=== PATIENT | female | born 1990 | race Caucasian/White ===

== ENCOUNTER 2017-09-01 20:52 | Emergency (ER) | payer MEDICAID, SELFPAY ==
[2017-09-01 20:54] VITALS: BP 126/79; PULSE 80; RESP 15; TEMP 36.4; O2SAT 99; BMI 38.7
--- NOTE | 2017-09-01 21:19 | ED.VISSUMM ---
- ER Visit Summary Date of Service: 09/01/17 Chief Complaint: Until pain for the past 5 day,s and facial swelling that started today History of Present Illness: The patient is a 26 F Z[place]z with dental pain for the past 5 days. She contacted her dentist because she has swelling right side of her face. He recommended she come to the emergency department. She denies fever, chills night sweats. She denies a traumatic fever, murmur, SBE, IV drug use to be immune suppressed. She denies difficulty opening and closing her mouth completely. She denies change in voice. Denies difficulty swallowing or breathing. She denies rash. She has no sniffing a past medical history. Physical Examination: Vital signs remarkable slight elevation blood pressure. She is afebrile. There is facial swelling over the right maxillary region. She has numerous dental caries involving right upper and lower molars. There is a significant cavity involving the right upper second bicuspid and right upper first molar. This is most likely the cause of her abscess. There is no evidence of facial cellulitis. There is no trismus. Trachea is midline with no stridor. Heart is regular without murmur, gallop or rub. S1 and S2 are normal. Lungs are clear to auscultation with good movement of air bilaterally. Please read written note for complete detail Test Results: None Emergency Department Course and Treatment: Patient received first dose of clindamycin 300 mg, Naprosyn 500 mg and one Taylor tablet. Treatment Plan: Prescription for clindamycin, Naprosyn and Taylor Disposition: Discharged to home Impression: 1. Periapical abscess 2. Dental pain secondary to numerous cavities This note was generated with [employer] dictation software. It may contain incorrect words, spelling, and punctuation that were not noted in review of the chart prior to signing ED Disposition - Plan for ED Patient: Disposition: Home or Assisted Living Chief Complaint: Dental Instructions: Dental Abscess Prescriptions: Hydrocodone Bitart/Apap 5-325 [Taylor 5MG-325MG] 1 tab PO Q6H PRN PRN 3 Days tab PRN Reason: Pain Naproxen [Naprosyn] 500 mg PO BID #10 tab Clindamycin HCl 300 mg PO 4X/DAY #30 cap Referrals: Elliott Stephens III, MD [Primary Care Provider] - Additional Instructions: You will need to follow-up with a dentist this coming week. Take medication as prescribed until gone
[2017-09-01] MEDS: HYDROcodone Bitartrate/Apap 5/325 Tablet PO (21:21)
[2017-09-01] MEDS: Clindamycin HCl 150 MG Capsule 300 MG PO (21:21)
[2017-09-01] MEDS: Naproxen 250 MG Tablet 500 MG PO (21:21)
--- NOTE | 2017-09-01 21:26 | ED.DCSUM_ITS ---
- ER Visit Summary Date of Service: 09/01/17 Chief Complaint: Until pain for the past 5 day,s and facial swelling that started today History of Present Illness: The patient is a 26 F Z[place]z with dental pain for the past 5 days. She contacted her dentist because she has swelling right side of her face. He recommended she come to the emergency department. She denies fever, chills night sweats. She denies a traumatic fever, murmur, SBE, IV drug use to be immune suppressed. She denies difficulty opening and closing her mouth completely. She denies change in voice. Denies difficulty swallowing or breathing. She denies rash. She has no sniffing a past medical history. Physical Examination: Vital signs remarkable slight elevation blood pressure. She is afebrile. There is facial swelling over the right maxillary region. She has numerous dental caries involving right upper and lower molars. There is a significant cavity involving the right upper second bicuspid and right upper first molar. This is most likely the cause of her abscess. There is no evidence of facial cellulitis. There is no trismus. Trachea is midline with no stridor. Heart is regular without murmur, gallop or rub. S1 and S2 are normal. Lungs are clear to auscultation with good movement of air bilaterally. Please read written note for complete detail Test Results: None Emergency Department Course and Treatment: Patient received first dose of clindamycin 300 mg, Naprosyn 500 mg and one Coulters tablet. Treatment Plan: Prescription for clindamycin, Naprosyn and Coulters Disposition: Discharged to home Impression: 1. Periapical abscess 2. Dental pain secondary to numerous cavities This note was generated with [employer] dictation software. It may contain incorrect words, spelling, and punctuation that were not noted in review of the chart prior to signing ED Disposition - Plan for ED Patient: Disposition: Home or Assisted Living Chief Complaint: Dental Instructions: Dental Abscess Prescriptions: Hydrocodone Bitart/Apap 5-325 [[place] 5MG-325MG] 1 tab PO Q6H PRN PRN 3 Days tab PRN Reason: Pain Naproxen [Naprosyn] 500 mg PO BID #10 tab Clindamycin HCl 300 mg PO 4X/DAY #30 cap Referrals: Elliott Stephens III, MD [Primary Care Provider] - Additional Instructions: You will need to follow-up with a dentist this coming week. Take medication as prescribed until gone
[2017-09-01 21:29] VITALS: RESP 16
== END 2017-09-01 21:29 | disposition home or self-care (01) ==
PROVIDERS: Emergency Provider Emergency Medicine; PCP Family Medicine
DX: K04.7 Periapical abscess without sinus (principal); K08.89 Other specified disorders of teeth and supporting structures; K02.9 Dental caries, unspecified; E66.9 Obesity, unspecified
CPT/HCPCS: 99283

== ENCOUNTER 2018-01-13 02:08 | Emergency (ER) | payer OTHER, MEDICAID, SELFPAY ==
[2018-01-13 02:08] VITALS: BP 140/80; PULSE 83; RESP 16; TEMP 36.6; O2SAT 96; BMI 42.5
--- NOTE | 2018-01-13 02:31 | ED.VISSUMM ---
- ER Visit Summary Date of Service: 01/13/18 Chief Complaint: [dental pain] History of Present Illness: The patient is a 27 F [that presents with right upper dental pain for the last several weeks. She has no other complaints.] Physical Examination: [General: The patient appears well and in no apparent distress. Patient is resting comfortably on cart. Skin: Warm, dry, no pallor noted. No rash. Head: Normocephalic, atraumatic Neck: Supple, nontender. Eye: PERRLA, EOMI ENT: Moist mucus membranes, pharynx within normal limits. Tenderness to percussion right upper incisor. No focal abscess. No sublingual edema. Airway patent. Cardiovascular: Regular Rate and Rhythm, no gallups or rubs Respiratory: Patient is in no distress, no accessory muscle use, lungs are clear to auscultation, no wheezing, rales or rhonchi GI: No tenderness to palpation, no masses appreciated. No rebound, guarding, or rigidity noted. Neurological: A&O, normal strength and sensation. Psychiatric: Cooperative] Test Results: [none] Emergency Department Course and Treatment: [Patient was given Tylenol for pain. She was placed on a course of Pen-Vee K. She was instructed to follow-up closely with her dentist and return with any new or worsening symptoms. She was discharged home in stable condition.] Treatment Plan: [See above] Disposition: [Discharge home, stable condition] Impression: [Odontalgia, dental caries] This note was generated with [employer] dictation software. It may contain incorrect words, spelling, and punctuation that were not noted in review of the chart prior to signing ED Disposition - Plan for ED Patient: Disposition: Home or Assisted Living Chief Complaint: Dental Instructions: ED Tooth Pain Prescriptions: Penicillin V Potassium 500 mg PO 4X/DAY #19 tab Referrals: Elliott Stephens III, MD [Primary Care Provider] -
[2018-01-13] MEDS: Acetaminophen 500 MG Tablet 1000 MG PO (02:35)
[2018-01-13] MEDS: Penicillin Vk 250 MG Tablet 500 MG PO (02:35)
== END 2018-01-13 02:41 | disposition home or self-care (01) ==
LOC: ED 02:38
PROVIDERS: Emergency Provider Emergency Medicine
DX: K02.9 Dental caries, unspecified (principal); K08.89 Other specified disorders of teeth and supporting structures; E66.9 Obesity, unspecified
CPT/HCPCS: 99283

== ENCOUNTER 2018-02-02 08:39 | Emergency (ER) | payer OTHER, MEDICAID, SELFPAY ==
[2018-02-02 08:39] VITALS: BP 128/83; PULSE 86; RESP 18; TEMP 36.7; O2SAT 97; BMI 40.1
--- NOTE | 2018-02-02 08:59 | RAD_ITS ---
STUDY: X-RAY CHEST REASON FOR EXAM: Female, 27 years old. Shortness of breath x3 days TECHNIQUE: PA and lateral views of the chest. COMPARISON: 12/07/2016 FINDINGS: The lungs are clear and expanded. There is no demonstrated pleural abnormality. Normal size heart. Normal mediastinum and darrell. Normal visualized pulmonary arteries. Normal visualized aortic arch and descending thoracic aorta. Normal visualized thoracic spine. Normal visualized ribs, clavicles, and shoulders. There is no demonstrated abnormality of the visualized soft tissue structures of the upper abdomen. RAD/Chest PA and Lateral IMPRESSION: Normal x-ray examination of the chest. Electronically Signed: Vito Elias MD at 10:05 EDT , Service support ,
--- NOTE | 2018-02-02 09:01 | ED.VISSUMM ---
- ER Visit Summary Date of Service: 02/02/18 Chief Complaint: Cough History of Present Illness: The patient is a 27 F who presents with cough that began today. Patient states her cough began early this morning. Patient states she is coughing up some yellow and green sputum. Patient admits to a fever of 103 at home. Patient admits to some rhinorrhea and postnasal drainage. Patient states she normally gets bronchitis this time of year. Patient admits to some chest pain with coughing but denies any other chest pain. Patient denies any nausea or vomiting. Physical Examination: Vital signs are stable. Patient is afebrile. Patient is in no acute distress. Oral mucosa is pink and moist. Oropharynx is clear. Neck is supple. Trachea is midline. Is no JVD or lymphadenopathy noted. Heart was regular rate and rhythm. Lungs showed some mild expiratory wheezing. There is good respiratory effort noted. Abdomen is soft nontender. Cranial nerves II through XII are intact. The remaining physical exam is within normal limits. Test Results: PA and lateral chest x-ray was obtained. There is no acute cardiopulmonary process noted. Emergency Department Course and Treatment: Patient was given a DuoNeb aerosol here. She felt better on reevaluation. Patient was given prescriptions for an albuterol aerosol and Mucinex DM. Patient was instructed to follow-up with her primary care physician in 5-7 days. Patient understood and was agreeable with the plan. All questions were answered. Disposition: Discharge home Impression: Viral upper respiratory infection This note was generated with [employer] dictation software. It may contain incorrect words, spelling, and punctuation that were not noted in review of the chart prior to signing ED Disposition - Plan for ED Patient: Disposition: Home or Assisted Living Chief Complaint: Shortness of Breath Diagnosis: Upper respiratory infection, viral Instructions: ED Upper Resp Infec No Abx Tx Prescriptions: Albuterol Inhaler [Ventolin Hfa] 2 puff INHALATION Q4H PRN PRN #1 inhaler PRN Reason: Wheezing Guaifenesin/Dextromethorphan [Mucinex Dm ER 1,200-60 mg Tab] 1 ea PO BID PRN PRN #20 tab.er.12h PRN Reason: Cough Referrals: Care Physician,No Primary [Primary Care Provider] -
[2018-02-02 09:14] VITALS: PULSE 97; RESP 18
[2018-02-02] MEDS: Ipratropium/Albuterol Sulfate 3 ML AMPUL.NEB INHALATION (09:14)
[2018-02-02 11:17] VITALS: BP 124/77; PULSE 73; RESP 17; O2SAT 98
== END 2018-02-02 11:18 | disposition home or self-care (01) ==
PROVIDERS: Emergency Provider Emergency Medicine
DX: J06.9 Acute upper respiratory infection, unspecified (principal)
CPT/HCPCS: 71046; 94640; 99283

== ENCOUNTER 2018-03-18 08:52 | Emergency (ER) | payer OTHER, MEDICAID, SELFPAY ==
[2018-03-18 08:53] VITALS: BP 143/75; PULSE 101; RESP 16; TEMP 36.2; O2SAT 98; BMI 40.6
--- NOTE | 2018-03-18 09:15 | ED.VISSUMM ---
- ER Visit Summary Date of Service: 03/18/18 Chief Complaint: Dental pain History of Present Illness: The patient is a 27 F with no primary care physician. She reports that she goes to [facility] [place] in [place] as her dentist. States that she has had dental pain began approximately 2 weeks ago. Is an aching constant pain that is sharp and stabbing with eating. Senna 10 worsening a 10 currently. Is worsened by eating or drinking. Is also worsened by hot or cold temperatures. She taken Tylenol and ibuprofen without relief. States that she has contacted her dentist is not been able to make an appointment. Physical Examination: Vitals: Stable. Afebrile. Mouth: No trismus. No edema of the floor of the mouth. Pain with percussion of left maxillary second and third molars. Posterior quarter of the third molar is absent. There is no focal abscess. There is no gum swelling. She also has pain with percussion of her left mandibular second molar. Again no focal abscess or swelling. No facial swelling. General: A&O x 3. NAD. Cardiovascular exam: Regular rate and rhythm, no murmur, rub or gallop. Respiratory exam: Clear to auscultation bilaterally. No wheezes or stridor. Abdominal exam: Soft, nontender, nondistended, normal bowel sounds. No peritoneal signs. Extremity: No clubbing, cyanosis, or edema. Emergency Department Course and Treatment: An [facility] report was obtained which show she had one prescription for opiates in the past year. The patient is given dose penicillin naproxen here. Treatment Plan: Patient will be discharged prescription for penicillin, naproxen, and 10 [place]. Instructed follow-up with the dentist as soon as possible. She is given a list of local dentists. Disposition: To home in improved and stable condition. Impression: 1. Dental pain. This note was generated with [email or web address] dictation software. It may contain incorrect words, spelling, and punctuation that were not noted in review of the chart prior to signing ED Disposition - Plan for ED Patient: Chief Complaint: Dental Instructions: ED Tooth Pain Prescriptions: Hydrocodone Bitart/Apap 5-325 [[place] 5MG-325MG] 1 tablet PO Q4H PRN PRN 2 Days #10 tablet PRN Reason: Pain Naproxen [Naprosyn] 500 mg PO BID #14 tablet Penicillin V Potassium 500 mg PO 4X/DAY #40 tablet Referrals: Dentist,Your [STAFF PHYSICIAN] - As soon as possible
[2018-03-18] MEDS: Naproxen 250 MG Tablet 500 MG PO (09:23)
[2018-03-18] MEDS: Penicillin Vk 250 MG Tablet 500 MG PO (09:23)
--- OUTSIDE RECORDS SUMMARY | 2018-03-18 09:27 | XMS RPT_ITS ---
:1990 Author Organization OHIP Support Name Relationship Address Phone KNOTEK, PEE Unavailable [address] [place] [address] UE Unavailable Unavailable Unavailable KNOTEK, PEE Unavailable [address] + [place] [address] UE Unavailable Unavailable Unavailable KNOTEK, PEE Unavailable Unavailable + KNOTEK, BRITANY Unavailable [address] + [place] [address] PANTELIS, MENG Unavailable [address] + [place] [address] PANTELIS, MENG Unavailable [address] + [address] [place] [address] KNOTEK, PEE Unavailable Unavailable + KNOTEK, BRITANY Unavailable [address] + [place] [address] PANTELIS, MENG Unavailable [address] + [place] [address] PANTELIS, MENG Unavailable [address] + [address] [place] [address] KNOTEK, PEE Unavailable [address] + [place] [address] UE Unavailable Unavailable Unavailable [employer] Unavailable . + [place], [place] . KNOTEK, PEE Unavailable [address] + [place] [address] KNOTEK, PEE Unavailable Unavailable + PANTELIS, MENG Unavailable [address] + [place] [address] PANTELIS, MENG Unavailable [address] + [address] [place] [phone] FANNY, BABY-BOY-AT Unavailable [address] + [place] [address] KNOTEK, PEE Unavailable Unavailable + PANTELIS, MENG Unavailable [address] + [place] [address] PANTELIS, MENG Unavailable [address] + [address] [place] [phone] KNOTEK, PEE Unavailable Unavailable + PANTELIS, MENG Unavailable [address] + [place] [address] PANTELIS, MENG Unavailable [address] + [address] [place] [phone] KNOTEK, PEE Unavailable Unavailable + PANTELIS, MENG Unavailable [address] + [place] [address] PANTELIS, MENG Unavailable [address] + [address] [place] [phone] [employer] Unavailable . + [place] . KNOTEK, PEE Unavailable [address] + [place] [address] KNOTEK, PEE Unavailable Unavailable + PANTELIS, MENG Unavailable [address] + [place] [address] PANTELIS, MENG Unavailable [address] + [address] [place] [phone] KNOTEK, PEE Unavailable Unavailable + PANTELIS, MENG Unavailable [address] + [place] [address] PANTELIS, MENG Unavailable [address] + [address] [place] [address] KNOTEK, PEE Unavailable Unavailable + PANTELIS, MENG Unavailable [address] + [place] [address] PANTELIS, MENG Unavailable [address] + [address] [place] [address] [employer] Unavailable . + [place] . KNOTEK, PEE Unavailable [address] + [place] [address] KNOTEK, PEE Unavailable Unavailable + PANTELIS, MENG Unavailable [address] + [place] [address] PANTELIS, MENG Unavailable [address] + [address] [place] [phone] KNOTEK, PEE Unavailable Unavailable + PANTELIS, MENG Unavailable [address] + [place] [address] PANTELIS, MENG Unavailable [address] + [address] [place] [phone] KNOTEK, PEE Unavailable Unavailable + PANTELIS, MENG Unavailable [address] + [place] [address] PANTELIS, MENG Unavailable [address] + [address] [place] [address] [employer] Unavailable . + [place] . KNOTEK, PEE Unavailable [address] + [place] [address] KNOTEK, PEE Unavailable Unavailable + PANTELIS, MENG Unavailable [address] + [place] [address] PANTELIS, MENG Unavailable [address] + [address] [place] [address] KNOTEK, PEE Unavailable Unavailable + PANTELIS, MENG Unavailable Unavailable Unavailable PANTELIS, MENG Unavailable Unavailable Unavailable K[facility], PEE Unavailable Unavailable + PANTELIS, MENG Unavailable Unavailable Unavailable PANTELIS, MENG Unavailable Unavailable Unavailable KNOTE[employer], PEE Unavailable Unavailable + PANTELIS, MENG Unavailable Unavailable Unavailable PANTELIS, MENG Unavailable Unavailable Unavailable [facility] Unavailable . + [place] . KNOTEK, PEE Unavailable [address] + [place] [address] [employer] Unavailable . + [place] . KNOTEK, PEE Unavailable [address] + [place] [address] Care Team Providers Name Role Phone BERNARD YOUNG, DR. OMY Schneider Attending Unavailable CHRISTA BROOKS MD Primary Care Unavailable ALEXIS STEELE Attending CHRISTA Moon MD Primary Care Unavailable EYAD CHAMPAGNE MD Attending Unavailable CHRISTA BROOKS MD Primary Care Unavailable ALEXIS STEELE Attending Unavailable CHRISTA BROOKS MD Primary Care Unavailable MILES CASTRO MD Attending Unavailable CHRISTA BROOKS MD Primary Care Unavailable CHRISTA BROOKS MD Primary Care Unavailable DR. SYED MARTINS DO Attending Unavailable ALEXIS STEELE Attending Unavailable CHRISTA BROOKS MD Primary Care Unavailable ALEXIS STEELE Attending Unavailable CHRISTA BROOKS MD Primary Care Unavailable DR. MOY WAGNER DO Attending Unavailable CHRISTA BROOKS MD Primary Care Unavailable MILES CASTRO MD Attending Unavailable CHRISTA BROOKS MD Primary Care Unavailable YOSEF BAPTISTE CNM Attending Unavailable JONATHON BERG, EVIN Aguayo III Primary Care Unavailable PARTH HARRIS MD Attending Unavailable JONATHON BERG, EVIN Aguayo III Primary Care Unavailable HEVER YOON DO Attending Unavailable JONATHON BERG, EVIN Aguayo III Primary Care Unavailable HEVER YOON DO Attending Unavailable JONATHON BERG, EVIN A III Primary Care Unavailable YOON DO, HEVER A Admitting Unavailable YOON DO, HEVER A Attending Unavailable PHYSICIAN, PATIENT UNSURE Primary Care Unavailable YOON DO, HEVER A Attending Unavailable PHYSICIAN, PATIENT UNSURE Primary Care Unavailable CEBUL III, EVIN A Attending Unavailable Ruben Zhu Attending Unavailable Primay Care Physicia, No Primary Care Unavailable German, Ze Attending Unavailable Primay Care Physicia, No Primary Care Unavailable Primay Care Physicia, No Primary Care Unavailable Albert Fuentes Attending Unavailable Primay Care Physicia, No Primary Care Unavailable Sherock, Syed Attending Unavailable Sherock, Syed Attending Unavailable Primay Care Physicia, No Primary Care Unavailable Primay Care Physicia, No Primary Care Unavailable German, Ze Attending Unavailable Primay Care Physicia, No Primary Care Unavailable Devon Macias Attending Unavailable Primay Care Physicia, No Primary Care Unavailable Aureliano Walls Attending Unavailable Primay Care Physicia, No Primary Care Unavailable Sterling Willoughby Attending Unavailable PROBLEMS PROBLEMS DATE TYPE CONDITION / CODE ATTENDING STATUS SOURCE 03/18/2018 Unknown K08.89 - Other Sterling Willoughby Active [facility] specified [facility] disorders of Hospital teeth and Repository supporting structures / K08.89(ICD-10) 09/02/2017 Unknown K04.7 - German, Ze Active [facility] abscess without Hospital sinus / Repository K04.7(ICD-10) 08/24/2017 Unknown O24.419 - Sherock, Active [facility] diabetes mellitus Hospital in , Repository unspecified control / O24.419(ICD-10) PROCEDURES PROCEDURES No Procedure Records FoundRESULTS RESULTS EMERGENCY DEPARTMENT Observed: 02/02/2018 Status: F Source: [place] SUMMARY 11:01 AM [facility] REPOSITORY [facility] [id number] [facility] [place], [place] [address]Nzrjhrwwx Department Yqskfte41/07/18 0901MR#: [id number] Acct: [id number]: KANCHAN LINDA Rep #: [id number]: 1990 27 From: Aureliano Walls DOPCP: Care Physician, No Primary Status: REG ER- ER Visit SummaryDate of Service: 02/02/18Chief Complaint: CoughHistory of Present Illness: The patient is a 27 F who presents with cough that began today.Patient states her cough began early this morning. Patient states she is coughing up someyellow and green sputum. Patient admits to a fever of 103 at home. Patient admits to somerhinorrhea and postnasal drainage. Patient states she normally gets bronchitis this time ofyear. Patient admits to some chest pain with coughing but denies any other chest pain.Patient denies any nausea or vomiting.Physical Examination: Vital signs are stable. Patient is afebrile. Patient is in no acutedistress. Oral mucosa is pink and moist. Oropharynx is clear. Neck is supple. Trachea ismidline. Is no JVD or lymphadenopathy noted. Heart was regular rate and rhythm. Lungs showedsome mild expiratory wheezing. There is good respiratory effort noted. Abdomen is softnontender. Cranial nerves II through XII are intact. The remaining physical exam is withinnormal limits.Test Results: PA and lateral chest x-ray was obtained. There is no acute cardiopulmonaryprocess noted.Emergency Department Course and Treatment: Patient was given a DuoNeb aerosol here. She feltbetter on reevaluation. Patient was given prescriptions for an albuterol aerosol and MucinexDM. Patient was instructed to follow-up with her primary care physician in 5-7 days. Patientunderstood and was agreeable with the plan. All questions were answered.Disposition: Discharge homeImpression: Viral upper respiratory infectionThis note was generated with Snapguide dictation software. It may contain incorrect words,spelling, and punctuation that were not noted in review of the chart prior to signingED Disposition- Plan for ED Patient:Disposition: Home or Assisted LivingChief Complaint: Shortness of BreathDiagnosis:Upper respiratory infection, viralInstructions: ED Upper Resp Infec No Abx TxPrescriptions:Albuterol Inhaler [Ventolin Hfa] 2 puff INHALATION Q4H PRN PRN #1 inhalerPRN Reason: WheezingGuaifenesin/Dextromethorphan [Mucinex Dm ER 1,200-60 mg Tab] 1 ea PO BID PRN PRN #20 tab.er.12hPRN Reason: CoughReferrals:Care Physician,No Primary [Primary Care Provider] -What to do if you have ProblemsFor any increased pain, shortness of breath, bleeding, nausea or vomiting, chest pain, or anyunexpected problems, contact your Primary Care Provider. Call [facility] ([phone])or report to the closest Emergency Room.Call 911 if necessary.02/02/18 1101 <Electronically signed by Aureliano Walls DO>Date Aureliano Walls DOCosigner Signature (If Indicated): Date CC: No Primary Care Physician CHEST PA AND LATERAL Observed: 02/02/2018 Status: F Source: [place] [facility] [id number] [place] [address]Xfckg PA and LateralMR#: [id number] Acct: [id number]: KANCHAN LINDA Rep #: [id number]: 1990 F 27 From: Alexy Elias MDPCP: Care Physician, No Primary Status: REG ERStudy: Chest PA and Lateral Date of Exam: 02/02/18Exam# [id number] Ordering Dr: Aureliano Walls DOSTUDY: X-RAY CHESTREASON FOR EXAM: Female, 27 years old. Shortness of breath x3 daysTECHNIQUE: PA and lateral views of the chest.COMPARISON: 12/07/2016 FINDINGS:The lungs are clear and expanded. There is no demonstrated pleuralabnormality.Normal size heart. Normal mediastinum and darrell. Normal visualizedpulmonary arteries. Normal visualized aortic arch and descending thoracicaorta.Normal visualized thoracic spine. Normal visualized ribs, clavicles, andshoulders.There is no demonstrated abnormality of the visualized soft tissuestructures of the upper abdomen. ORDER #: [id number] RAD/Chest PA and LateralIMPRESSION:Normal x-ray examination of the chest.Electronically Signed:Vito Elias MD at 10:05 EDTTel , Service support , [place]: No Primary Care Physician; Aureliano Walls DO Pigs Feet Cleaner:Signed US TRANSVAGINAL NON OB Observed: 01/30/2018 Status: F Source: [place] 8:00 AM [facility] REPOSITORY ORIGINALUS TRANSVAGINAL NON OB CLINICAL INDICATION: EXCESSIVE AND FREQUENT MENSTRUATION WITH REGULAR CYCLE COMPARISON: US PELVIS NON-OB W/TRANSVAGINAL 04/10/2015 FINDINGS: UTERUS: 7.7 x 4.2 x 4.8 cm, anteverted Myometrium: HomogeneousEndometrium: 7 mm, not thickened (double echo). Cervix: Unremarkable OVARIES:Right: 3.7 x 2.0 x 1.9 cm. Doppler blood flow demonstrated. Small follicles present.Left: 2.9 x 1.5 x 2.4 cm. Doppler blood flow demonstrated. Small follicles present. No adnexal mass. A small amount of fluid within the cul-de-sac is likely physiologic. IMPRESSION: 1. Normal sonographic findings of the uterus and ovaries. Interpreted By: Josie Lobatoreliminary Report By: Josie Lobato MDElectronically Signed By: Josie Lobato MD Dictated Date: 01/30/2018 10:32:20 AM Prelim Date: 01/30/2018 10:32:20 AM Sign Date: 01/30/2018 10:35:17 AM Collected: 01/23/2018 Status: F Source: [facility] 2:20 PM [facility] REPOSITORY TYPE CODE TESTS RESULT OUT OF RANGE REFERENCE UNITS LAB HGB(LOINC) 12.0-16.0 G/dL Hgb 14.5 LAB HCT(LOINC) 37.0-47.0 % Hct 42.5 Performed By: #### HH #### [place] [address] #### TSH #### [address], [place] [address] TSH Collected: 01/23/2018 Status: F Source: [facility] 2:20 PM [facility] REPOSITORY TYPE CODE TESTS RESULT OUT OF RANGE REFERENCE UNITS LAB TSH(LOINC) 0.36-3.74 mcIU/mL TSH 1.38 Performed By: #### HH #### [facility] [address] [place], [place] [address] #### TSH #### [address] [address] EMERGENCY DEPARTMENT Observed: 01/13/2018 Status: F Source: [place] SUMMARY 2:35 AM [facility] REPOSITORY [facility] [id number] [place], [place] [address]Lnfaevnag Department Xekmzxg14/18/18 0231#: [id number] Acct: [id number]: KANCHAN LINDA Rep #: [id number]: 1990 27 From: Ren Macias MDPCP: Evin Stephens III, MD Status: PRE ER- ER Visit SummaryDate of Service: 01/13/18Chief Complaint: [dental pain]History of Present Illness: The patient is a 27 F [that presents with right upper dental painfor the last several weeks. She has no other complaints.]Physical Examination: [General: The patient appears well and in no apparent distress. Patientis resting comfortably on cart.Skin: Warm, dry, no pallor noted. No rash.Head: Normocephalic, atraumaticNeck: Supple, nontender.Eye: PERRLA, EOMIENT: Moist mucus membranes, pharynx within normal limits. Tenderness to percussion right upperincisor. No focal abscess. No sublingual edema. Airway patent.Cardiovascular: Regular Rate and Rhythm, no gallups or rubsRespiratory: Patient is in no distress, no accessory muscle use, lungs are clear toauscultation, no wheezing, rales or rhonchiGI: No tenderness to palpation, no masses appreciated. No rebound, guarding, or rigidity noted.Neurological: A AND O, normal strength and sensation.Psychiatric: Cooperative]Test Results: [none]Emergency Department Course and Treatment: [Patient was given Tylenol for pain. She was placedon a course of Pen-Vee K. She was instructed to follow-up closely with her dentist and returnwith any new or worsening symptoms. She was discharged home in stable condition.]Treatment Plan: [See above]Disposition: [Discharge home, stable condition]Impression: [Odontalgia, dental caries]This note was generated with Snapguide dictation software. It may contain incorrect words,spelling, and punctuation that were not noted in review of the chart prior to signingED Disposition- Plan for ED Patient:Disposition: Home or Assisted LivingChief Complaint: DentalInstructions: ED Tooth PainPrescriptions:Penicillin V Potassium 500 mg PO 4X/DAY #19 tabReferrals:Evin Stephens III, MD [Primary Care Provider] -What to do if you have ProblemsFor any increased pain, shortness of breath, bleeding, nausea or vomiting, chest pain, or anyunexpected problems, contact your Primary Care Provider. Call [facility] Registry ([phone])or report to the closest Emergency Room.Call 911 if necessary.01/13/18 0235 <Electronically signed by Ren Macias MD>Date Ren Macias [facility] Signature (If Indicated): Date CC: No Primary Care Physician; Evin Stephens III, MD EMERGENCY DEPARTMENT Observed: 09/01/2017 Status: F Source: [place] SUMMARY 9:26 PM [facility] REPOSITORY [facility] [id number] [place] [address]Cmcdtxyab Department Pzblmdi37/06/18 2119MR#: [id number] Acct: [id number]: KANCHAN LINDA Rep #: [id number]: 1990 26 From: Ze German MDPCP: Evin Stephens III, MD Status: REG ER- ER Visit SummaryDate of Service: 09/01/17Chief Complaint: Until pain for the past 5 day,s and facial swelling that started todayHistory of Present Illness: The patient is a 26 F Zentz with dental pain for the past 5 days.She contacted her dentist because she has swelling right side of her face. He recommended shecome to the emergency department. She denies fever, chills night sweats. She denies atraumatic fever, murmur, SBE, IV drug use to be immune suppressed. She denies difficultyopening and closing her mouth completely. She denies change in voice. Denies difficultyswallowing or breathing. She denies rash. She has no sniffing a past medical history.Physical Examination: Vital signs remarkable slight elevation blood pressure. She is afebrile.There is facial swelling over the right maxillary region. She has numerous dental cariesinvolving right upper and lower molars. There is a significant cavity involving the rightupper second bicuspid and right upper first molar. This is most likely the cause of herabscess. There is no evidence of facial cellulitis. There is no trismus. Trachea is midlinewith no stridor. Heart is regular without murmur, gallop or rub. S1 and S2 are normal. Lungsare clear to auscultation with good movement of air bilaterally. Please read written note forcomplete detailTest Results: NoneEmergency Department Course and Treatment: Patient received first dose of clindamycin 300 mg,Naprosyn 500 mg and one Refugio tablet.Treatment Plan: Prescription for clindamycin, Naprosyn and NorcoDisposition: Discharged to homeImpression:1. Periapical abscess2. Dental pain secondary to numerous cavitiesThis note was generated with Snapguide dictation software. It may contain incorrect words,spelling, and punctuation that were not noted in review of the chart prior to signingED Disposition- Plan for ED Patient:Disposition: Home or Assisted LivingChief Complaint: DentalInstructions: Dental AbscessPrescriptions:Hydrocodone Bitart/Apap 5-325 [Refugio 5MG-325MG] 1 tab PO Q6H PRN PRN 3 Days tabPRN Reason: PainNaproxen [Naprosyn] 500 mg PO BID #10 tabClindamycin HCl 300 mg PO 4X/DAY #30 capReferrals:Cebul,Evin A III, MD [Primary Care Provider] -Additional Instructions:You will need to follow-up with a dentist this coming week. Take medication as prescribeduntil goneWhat to do if you have ProblemsFor any increased pain, shortness of breath, bleeding, nausea or vomiting, chest pain, or anyunexpected problems, contact your Primary Care Provider. Call [facility] ([phone])or report to the closest Emergency Room.Call 911 if necessary.09/01/172125 <Electronically signed by Ze German MD>Date Ze German MDCosigner Signature (If Indicated): Date CC: No Primary Care Physician; Evin Stephens III, MD Collected: 07/24/2017 Status: F Source: [place] Other Machine 5:13 AM [facility] REPOSITORY TYPE CODE TESTS RESULT OUT OF RANGE REFERENCE UNITS LAB HGB(LOINC) Low 12.0-16.0 G/dL Hgb 9.2 LAB HCT(LOINC) Low 37.0-47.0 % Hct 27.7 Performed By: #### #### [address] [address] CBC Collected: 07/23/2017 Status: F Source: [facility] 7:59 AM [facility] REPOSITORY TYPE CODE TESTS RESULT OUT OF REFERENCE UNITS RANGE LAB WBC(LOINC) High 4.60-10.80 10 3/mcL WBC 15.60 LAB RBCCT(LOINC 4.20-5.40 10 6/mcL ) RBC 4.93 LAB HGB(LOINC) 12.0-16.0 G/dL Hgb 12.6 LAB HCT(LOINC) 37.0-47.0 % Hct 38.0 LAB MCV(LOINC) Low 80.0-94.0 fL MCV 77.2 LAB MCH(LOINC) Low 27.0-31.2 pg MCH 25.6 LAB MCHC(LOINC) 33.0-37.0 G/dL MCHC 33.1 LAB RDW(LOINC) High 11.5-14.5 % RDW 16.1 LAB PLT(LOINC) 130-400 10 3/mcL Platelet 160 LAB MPV(LOINC) 7.4-10.4 fL MPV 10.1 Performed By: #### CBC, ADIFF, ANEU, ABOG, ANSG #### [address] [address] .AUTO DIFF Collected: 07/23/2017 Status: F Source: [facility] 7:59 AM [facility] REPOSITORY TYPE CODE TESTS RESULT OUT OF REFERENCE UNITS RANGE LAB SILAS(LOINC) High 37.0-80.0 % Neutrophil % 83.8 LAB LYM(LOINC) Low 10.0-50.0 % Lymphocyte % 9.6 LAB MON(LOINC) 1.7-13.0 % Monocyte % 5.6 LAB EO(LOINC) 0.0-7.0 % Eosinophil % 0.4 LAB BAS(LOINC) 0.0-2.5 % Basophil % 0.6 LAB ABLYM(LOIN 0.77-3.85 10 3/mcL C) Lymphocyte, 1.50 Absolute LAB BRITANY(LOINC 0.15-1.00 10 3/mcL ) Monocyte, 0.90 Absolute LAB AEOS(LOINC 0.00-0.40 10 3/mcL ) Eosinophil, 0.10 Absolute LAB ABAS(LOINC 0.00-0.19 10 3/mcL ) Basophil, 0.10 Absolute Performed By: #### CBC, ADIFF, ANEU, ABOG, ANSG #### [address] [address] .NEUABS Collected: 07/23/2017 Status: F Source: [facility] 7:59 AM [facility] REPOSITORY TYPE CODE TESTS RESULT OUT OF REFERENCE UNITS RANGE LAB ANEU(LOINC) High 2.85-6.16 10 3/mcL 13.00 Neutrophil, Absolute Performed By: #### CBC, ADIFF, ANEU, ABOG, ANSG #### [place] [id number] [place], [place] [address] GEL ABO Collected: 07/23/2017 Status: F Source: [facility] 7:59 AM [facility] REPOSITORY TYPE CODE TESTS RESULT OUT OF RANGE REFERENCE UNITS LAB ABORH(LOINC Unknown ) B POS ABO/Rh Interp Performed By: #### CBC, ADIFF, ANEU, ABOG, ANSG #### [place] [place] [address] [place], [place] [address] GEL ABS Collected: 07/23/2017 Status: F Source: [facility] 7:59 AM [facility] REPOSITORY TYPE CODE TESTS RESULT OUT OF REFERENCE UNITS RANGE LAB ANSG(LOINC ) Antibody Negative Screen Gel ABSC Performed By: #### CBC, ADIFF, ANEU, ABOG, ANSG #### [place] [address] [place], [place] [address] UA Collected: 07/23/2017 Status: F Source: [facility] 7:59 AM [facility] REPOSITORY TYPE CODE TESTS RESULT OUT OF REFERENCE UNITS RANGE LAB SPCUA(LOIN C) UA Specimen Type Void LAB CLRUA(LOIN C) UA Color YELLOW LAB APPUA(LOIN C) UA Appear CLEAR LAB SGUA(LOINC ) UA Spec Grav 1.015 LAB GLUA(LOINC mg/dL ) UA Glucose NEGATIVE LAB BILUA(LOIN C) UA Bili NEGATIVE LAB KETUA(LOIN mg/dL C) UA Ketones NEGATIVE LAB BLDUA(LOIN C) UA Blood LARGE LAB PHUA(LOINC ) UA pH 6.5 LAB PROUA(LOIN mg/dL C) UA Protein NEGATIVE LAB UROUA(LOIN E.U./dL C) UA Urobilinogen 0.2 LAB NITUA(LOIN C) UA Nitrite NEGATIVE LAB LEUUA(LOIN C) UA Leuk Est TRACE Performed By: #### UA, UAMICAO #### [place] [place] [address] [place], [place] [address] .URINALYSIS MICROSCOPIC Collected: 07/23/2017 Status: F Source: [place] (AO) 7:59 AM [facility] REPOSITORY TYPE CODE TESTS RESULT OUT OF RANGE REFERENCE UNITS LAB WBCUA(LOIN Abnormal None Seen /hpf C) UA WBC 0-5 LAB RBCUA(LOIN Abnormal None Seen /hpf C) UA RBC 15-25 LAB EPIUA(LOIN Abnormal None Seen /hpf C) UA Squam 0-5 Epithelial Performed By: #### UA, UAMICAO #### [address] [address] BUN Collected: 07/23/2017 Status: F Source: [facility] 7:59 AM [facility] REPOSITORY TYPE CODE TESTS RESULT OUT OF RANGE REFERENCE UNITS LAB BUN(LOINC) 7.0-18.0 mg/dL BUN 10.4 Performed By: #### BUN, CRE, AST, GFR, ALT #### [address] [address] CRE Collected: 07/23/2017 Status: F Source: [facility] 7:59 AM [facility] REPOSITORY TYPE CODE TESTS RESULT OUT OF REFERENCE UNITS RANGE LAB CRE(LOINC) 0.6-1.2 mg/dL Creatinine 0.8 Lvl (s) Performed By: #### BUN, CRE, AST, GFR, ALT #### [address] [address] AST Collected: 07/23/2017 Status: F Source: [facility] 7:59 AM [facility] REPOSITORY TYPE CODE TESTS RESULT OUT OF RANGE REFERENCE UNITS LAB AST(LOINC) 10-40 IU/L 16 AST/SGOT Performed By: #### BUN, CRE, AST, GFR, ALT #### [address] [address] .GFR Collected: 07/23/2017 Status: F Source: [facility] 7:59 AM [facility] REPOSITORY TYPE CODE TESTS RESULT OUT OF REFERENCE UNITS RANGE LAB GFRAA(LOINC ml/min/1.73 ) GFR 115 sqm Result Comment: GFR Population mean for , Non- Americans Ages 20-29 = 116 mL/min/1.73 sq.m. Ages 30-39 = 107 mL/min/1.73 sq.m. Ages 40-49 = 99 mL/min/1.73 sq.m. Ages 50-59 = 93 mL/min/1.73 sq.m. Ages 60-69 = 85 mL/min/1.73 sq.m. Ages 70+ = 75 mL/min/1.73 sq.m. Chronic Kidney Disease: Less than 60 mL/min/1.73 square meters End Stage Renal Disease: Less than 15 mL/min/1.73 square meters LAB GFRNO(LOINC) ml/min/1.73sqm GFR Non- >60 Result Comment: GFR Population mean for , Non- Americans Ages 20-29 = 116 mL/min/1.73 sq.m. Ages 30-39 = 107 mL/min/1.73 sq.m. Ages 40-49 = 99 mL/min/1.73 sq.m. Ages 50-59 = 93 mL/min/1.73 sq.m. Ages 60-69 = 85 mL/min/1.73 sq.m. Ages 70+ = 75 mL/min/1.73 sq.m. Chronic Kidney Disease: Less than 60 mL/min/1.73 square meters End Stage Renal Disease: Less than 15 mL/min/1.73 square meters Performed By: #### BUN, CRE, AST, GFR, ALT #### [address] [address] ALT/SGPT Collected: 07/23/2017 Status: F Source: [employer] 7:59 AM [facility] REPOSITORY TYPE CODE TESTS RESULT OUT OF RANGE REFERENCE UNITS LAB ALT(LOINC) 10-35 IU/L 12 ALT/SGPT Performed By: #### BUN, CRE, AST, GFR, ALT #### [address] [address] Observed: 07/21/2017 Status: F Source: [employer] [facility] 1:17 AM [facility] REPOSITORY . MICRO - MicrobiologyPROCEDURE: Urine Culture [*1] Urine, Clean Catch BODY SITE:COLLECTED DATE/TIME: 07/21/2017 01:17 EST RECEIVED DATE/TIME: 07/21/2017 14:19 ESTSTART DATE/TIME: 07/21/2017 14:19 EST FREE TEXT SOURCE:FINAL REPORTSFinal Report []Verified Date/Time/Personnel: 07/23/2017 14:17 EST75,000 organisms per mLIncluding 10,000 Group B strepMixed without predominant isolate(s). SensitivityTesting not indicated. Probably contamination. Repeatculture suggested.PRELIMINARY REPORTSPreliminary Report []Verified Date/Time/Personnel: 07/22/2017 13:19 ESTCulture results pending.Performing Locations*1: This test was performed at: [facility], [address] [place] [address], [id number] , [facility] Performed By: #### CUR ####[facility] [place] [address] UA Collected: 06/26/2017 Status: F Source: [facility] 9:12 AM [facility] REPOSITORY TYPE CODE TESTS RESULT OUT OF REFERENCE UNITS RANGE LAB SPCUA(LOIN C) UA Specimen Type Clean Catch LAB CLRUA(LOIN C) UA Color YELLOW LAB APPUA(LOIN C) UA Appear CLEAR LAB SGUA(LOINC ) UA Spec Grav 1.025 LAB GLUA(LOINC mg/dL ) UA Glucose NEGATIVE LAB BILUA(LOIN C) UA Bili NEGATIVE LAB KETUA(LOIN mg/dL C) UA Ketones TRACE LAB BLDUA(LOIN C) UA Blood NEGATIVE LAB PHUA(LOINC ) UA pH 6.0 LAB PROUA(LOIN mg/dL C) UA Protein NEGATIVE LAB UROUA(LOIN E.U./dL C) UA Urobilinogen 0.2 LAB NITUA(LOIN C) UA Nitrite NEGATIVE LAB LEUUA(LOIN C) UA Leuk Est MODERATE Performed By: #### UA, UAMICAO #### [address] [address] .URINALYSIS MICROSCOPIC Collected: 06/26/2017 Status: F Source: [place] ([place]) 9:12 AM [facility] REPOSITORY TYPE CODE TESTS RESULT OUT OF RANGE REFERENCE UNITS LAB WBCUA(LOIN Abnormal None Seen /hpf C) UA WBC LOADED LAB RBCUA(LOIN Abnormal None Seen /hpf C) UA RBC 0-5 LAB EPIUA(LOIN Abnormal None Seen /hpf C) UA Squam 10-15 Epithelial LAB BACUA(LOIN Abnormal /hpf C) UA Bacteria 2+ Performed By: #### UA, UAMICAO #### [address] [address] BMP Collected: 06/26/2017 Status: F Source: [facility] 9:12 AM [facility] REPOSITORY TYPE CODE TESTS RESULT OUT OF REFERENCE UNITS RANGE LAB 1547-9 70-105 mg/dL GLUCOSE 96 LAB NA(LOINC) 136-146 mEq/L Sodium Level 137 LAB K(LOINC) 3.5-5.1 mEq/L Potassium Level 4.5 LAB CL(LOINC) 98-107 mEq/L Chloride 105 LAB CO2(LOINC) 22-29 mEq/L CO2 22 LAB EBAL(LOINC mEq/L ) Electrolyte 10.0 Balance LAB BUN(LOINC) 7.0-18.0 mg/dL BUN 9.2 LAB CRE(LOINC) 0.6-1.2 mg/dL Creatinine Lvl 0.8 (s) LAB BC(LOINC) 7-27 ratio BUN/Creatinine 12 Ratio LAB CA(LOINC) 8.4-10.2 mg/dL Calcium Lvl 9.4 Performed By: #### BMP, GFR, CBC, ADIFF, ANEU #### [address] [address] .GFR Collected: 06/26/2017 Status: F Source: [facility] [employer] 9:12 AM [facility] REPOSITORY TYPE CODE TESTS RESULT OUT OF REFERENCE UNITS RANGE LAB GFRAA(LOINC ml/min/1.73 ) GFR 111 sqm Result Comment: GFR Population mean for , Non- Americans Ages 20-29 = 116 mL/min/1.73 sq.m. Ages 30-39 = 107 mL/min/1.73 sq.m. Ages 40-49 = 99 mL/min/1.73 sq.m. Ages 50-59 = 93 mL/min/1.73 sq.m. Ages 60-69 = 85 mL/min/1.73 sq.m. Ages 70+ = 75 mL/min/1.73 sq.m. Chronic Kidney Disease: Less than 60 mL/min/1.73 square meters End Stage Renal Disease: Less than 15 mL/min/1.73 square meters LAB GFRNO(LOINC) ml/min/1.73sqm GFR Non- >60 Result Comment: GFR Population mean for , Non- Americans Ages 20-29 = 116 mL/min/1.73 sq.m. Ages 30-39 = 107 mL/min/1.73 sq.m. Ages 40-49 = 99 mL/min/1.73 sq.m. Ages 50-59 = 93 mL/min/1.73 sq.m. Ages 60-69 = 85 mL/min/1.73 sq.m. Ages 70+ = 75 mL/min/1.73 sq.m. Chronic Kidney Disease: Less than 60 mL/min/1.73 square meters End Stage Renal Disease: Less than 15 mL/min/1.73 square meters Performed By: #### BMP, GFR, CBC, ADIFF, ANEU #### [address] [address] CBC Collected: 06/26/2017 Status: F Source: [facility] 9:12 AM [facility] REPOSITORY TYPE CODE TESTS RESULT OUT OF REFERENCE UNITS RANGE LAB WBC(LOINC) High 4.60-10.80 10 3/mcL WBC 13.90 LAB RBCCT(LOINC 4.20-5.40 10 6/mcL ) RBC 5.21 LAB HGB(LOINC) 12.0-16.0 G/dL Hgb 13.7 LAB HCT(LOINC) 37.0-47.0 % Hct 41.5 LAB MCV(LOINC) Low 80.0-94.0 fL MCV 79.6 LAB MCH(LOINC) Low 27.0-31.2 pg MCH 26.3 LAB MCHC(LOINC) 33.0-37.0 G/dL MCHC 33.1 LAB RDW(LOINC) High 11.5-14.5 % RDW 15.3 LAB PLT(LOINC) 130-400 10 3/mcL Platelet 205 LAB MPV(LOINC) 7.4-10.4 fL MPV 9.8 Performed By: #### JOSE, GFR, CBC, ADIFF, ANEU #### [address] [address] .AUTO DIFF Collected: 06/26/2017 Status: F Source: [facility] 9:12 AM [facility] REPOSITORY TYPE CODE TESTS RESULT OUT OF REFERENCE UNITS RANGE LAB SILAS(LOINC) High 37.0-80.0 % Neutrophil % 89.6 LAB LYM(LOINC) Low 10.0-50.0 % Lymphocyte % 5.9 LAB MON(LOINC) 1.7-13.0 % Monocyte % 3.8 LAB EO(LOINC) 0.0-7.0 % Eosinophil % 0.2 LAB BAS(LOINC) 0.0-2.5 % Basophil % 0.5 LAB ABLYM(LOIN 0.77-3.85 10 3/mcL C) Lymphocyte, 0.80 Absolute LAB BRITANY(LOINC 0.15-1.00 10 3/mcL ) Monocyte, 0.50 Absolute LAB AEOS(LOINC 0.00-0.40 10 3/mcL ) Eosinophil, 0.00 Absolute LAB ABAS(LOINC 0.00-0.19 10 3/mcL ) Basophil, 0.10 Absolute Performed By: #### BMP, GFR, CBC, ADIFF, ANEU #### [place] [id number] [place], [place] [address] .NEUABS Collected: 06/26/2017 Status: F Source: [facility] 9:12 AM [facility] REPOSITORY TYPE CODE TESTS RESULT OUT OF REFERENCE UNITS RANGE LAB ANEU(LOINC) High 2.85-6.16 10 3/mcL 12.40 Neutrophil, Absolute Performed By: #### BMP, GFR, CBC, ADIFF, ANEU #### [id number] [place], [place] [address] Observed: 06/25/2017 Status: F Source: [employer] [facility] 9:33 PM [facility] REPOSITORY . MICRO - MicrobiologyPROCEDURE: Rapid Influenza A+B Screen w Cult if Ind [*1]SOURCE: Nares BODY SITE:COLLECTED DATE/TIME: 06/25/2017 21:33 EST RECEIVED DATE/TIME: 06/25/2017 21:37 ESTSTART DATE/TIME: 06/25/2017 21:37 EST FREE TEXT SOURCE:FINAL REPORTSFinal Report []Verified Date/Time/Personnel: 06/25/2017 22:03 ESTInfluenza Virus Type ASpecimen is positive for the presence of influenza Aantigen..Specimen is negative for the presence of influenza Bantigen..A positve result does not rule outco-infections with other pathogens or identify anyspecific influenza virus subtype. If the current localprevalence of the influenza virus is low, the predictivevalue of a positive screening test is greatlydiminished. Positive screening results therefore shouldbe interpreted along with clinical symptoms..Detection by immunofluorescence technology. Thisorganism causes a reportable disease. Infection Controlhas been notified. Results have been reported to [facility] Health.Performing Locations*1: This test was performed at: [address], [id number] [place] [address] Performed By: #### RFLU ####[place] [address] UA Collected: 06/25/2017 Status: F Source: [facility] 9:33 [facility] REPOSITORY TYPE CODE TESTS RESULT OUT OF REFERENCE UNITS RANGE LAB SPCUA(LOIN C) UA Specimen Type Void LAB CLRUA(LOIN C) UA Color YELLOW LAB APPUA(LOIN C) UA Appear CLEAR LAB SGUA(LOINC ) UA Spec Grav 1.025 LAB GLUA(LOINC mg/dL ) UA Glucose NEGATIVE LAB BILUA(LOIN C) UA Bili NEGATIVE LAB KETUA(LOIN mg/dL C) UA Ketones NEGATIVE LAB BLDUA(LOIN C) UA Blood NEGATIVE LAB PHUA(LOINC ) UA pH 6.5 LAB PROUA(LOIN mg/dL C) UA Protein NEGATIVE LAB UROUA(LOIN E.U./dL C) UA Urobilinogen 0.2 LAB NITUA(LOIN C) UA Nitrite NEGATIVE LAB LEUUA(LOIN C) UA Leuk Est TRACE Performed By: #### UA, UAMICAO #### [place] [address] .URINALYSIS MICROSCOPIC Collected: 06/25/2017 Status: F Source: [place] () 9:33 [facility] REPOSITORY TYPE CODE TESTS RESULT OUT OF RANGE REFERENCE UNITS LAB WBCUA(LOIN Abnormal None Seen /hpf C) UA WBC 0-5 LAB RBCUA(LOIN None Seen /hpf C) UA RBC None Seen LAB EPIUA(LOIN Abnormal None Seen /hpf C) UA Squam 0-5 Epithelial Performed By: #### UA, UAMICAO #### [place] [address] Observed: 06/25/2017 Status: F Source: [facility] 9:33 PM [facility] REPOSITORY . MICRO - MicrobiologyPROCEDURE: Urine Culture [*1] Urine BODY SITE:COLLECTED DATE/TIME: 06/25/2017 21:33 EST RECEIVED DATE/TIME: 06/26/2017 13:59 ESTSTART DATE/TIME: 06/26/2017 13:59 EST FREE TEXT SOURCE:FINAL REPORTSFinal Report []Verified Date/Time/Personnel: 06/28/2017 07:51 EST30,000 organisms per mLMixed without predominant isolate(s). SensitivityTesting not indicated. Probably contamination. Repeatculture suggested.PRELIMINARY REPORTSPreliminary Report []Verified Date/Time/Personnel: 06/27/2017 13:29 ESTCulture results pending.Performing Locations*1: This test was performed at: [facility], [address] [place] [address], [id number] Performed By: #### CUR ####[address] [address] CBC Collected: 06/13/2017 Status: F Source: [facility] 10:04 [facility] REPOSITORY TYPE CODE TESTS RESULT OUT OF REFERENCE UNITS RANGE LAB WBC(LOINC) High 4.60-10.80 10 3/mcL WBC 12.40 LAB RBCCT(LOINC 4.20-5.40 10 6/mcL ) RBC 4.97 LAB HGB(LOINC) 12.0-16.0 G/dL Hgb 13.1 LAB HCT(LOINC) 37.0-47.0 % Hct 39.8 LAB MCV(LOINC) 80.0-94.0 fL MCV 80.2 LAB MCH(LOINC) Low 27.0-31.2 pg MCH 26.3 LAB MCHC(LOINC) Low 33.0-37.0 G/dL MCHC 32.8 LAB RDW(LOINC) High 11.5-14.5 % RDW 14.8 LAB PLT(LOINC) 130-400 10 3/mcL Platelet 191 LAB MPV(LOINC) 7.4-10.4 fL MPV 9.5 Performed By: #### CBC, ADIFF, ANEU, URIC, GFR, CMP #### [facility] [address] [address] .AUTO DIFF Collected: 06/13/2017 Status: F Source: [facility] 10:04 AM [facility] REPOSITORY TYPE CODE TESTS RESULT OUT OF REFERENCE UNITS RANGE LAB SILAS(LOINC) 37.0-80.0 % Neutrophil % 80.0 LAB LYM(LOINC) 10.0-50.0 % Lymphocyte % 13.2 LAB MON(LOINC) 1.7-13.0 % Monocyte % 5.2 LAB EO(LOINC) 0.0-7.0 % Eosinophil % 0.9 LAB BAS(LOINC) 0.0-2.5 % Basophil % 0.7 LAB ABLYM(LOIN 0.77-3.85 10 3/mcL C) Lymphocyte, 1.60 Absolute LAB BRITANY(LOINC 0.15-1.00 10 3/mcL ) Monocyte, 0.60 Absolute LAB AEOS(LOINC 0.00-0.40 10 3/mcL ) Eosinophil, 0.10 Absolute LAB ABAS(LOINC 0.00-0.19 10 3/mcL ) Basophil, 0.10 Absolute Performed By: #### CBC, ADIFF, ANEU, URIC, GFR, CMP #### [address] [address] .NEUABS Collected: 06/13/2017 Status: F Source: [facility] 10:04 AM [facility] REPOSITORY TYPE CODE TESTS RESULT OUT OF REFERENCE UNITS RANGE LAB ANEU(LOINC) High 2.85-6.16 10 3/mcL 9.90 Neutrophil, Absolute Performed By: #### CBC, ADIFF, ANEU, URIC, GFR, CMP #### [address] [address] URIC Collected: 06/13/2017 Status: F Source: [facility] 10:04 [facility] REPOSITORY TYPE CODE TESTS RESULT OUT OF RANGE REFERENCE UNITS LAB URIC(LOINC) 3.5-7.2 mcg/dL Uric 5.1 Acid Lvl Performed By: #### CBC, ADIFF, ANEU, URIC, GFR, CMP #### [address] [address] .GFR Collected: 06/13/2017 Status: F Source: [facility] 10:04 AM [facility] REPOSITORY TYPE CODE TESTS RESULT OUT OF REFERENCE UNITS RANGE LAB GFRAA(LOINC ml/min/1.73 ) GFR 132 sqm Result Comment: GFR Population mean for , Non- Americans Ages 20-29 = 116 mL/min/1.73 sq.m. Ages 30-39 = 107 mL/min/1.73 sq.m. Ages 40-49 = 99 mL/min/1.73 sq.m. Ages 50-59 = 93 mL/min/1.73 sq.m. Ages 60-69 = 85 mL/min/1.73 sq.m. Ages 70+ = 75 mL/min/1.73 sq.m. Chronic Kidney Disease: Less than 60 mL/min/1.73 square meters End Stage Renal Disease: Less than 15 mL/min/1.73 square meters LAB GFRNO(LOINC) ml/min/1.73sqm GFR Non- >60 Result Comment: GFR Population mean for , Non- Americans Ages 20-29 = 116 mL/min/1.73 sq.m. Ages 30-39 = 107 mL/min/1.73 sq.m. Ages 40-49 = 99 mL/min/1.73 sq.m. Ages 50-59 = 93 mL/min/1.73 sq.m. Ages 60-69 = 85 mL/min/1.73 sq.m. Ages 70+ = 75 mL/min/1.73 sq.m. Chronic Kidney Disease: Less than 60 mL/min/1.73 square meters End Stage Renal Disease: Less than 15 mL/min/1.73 square meters Performed By: #### CBC, ADIFF, ANEU, URIC, GFR, CMP #### [address] [address] CMP Collected: 06/13/2017 Status: F Source: [facility] 10:04 AM [facility] REPOSITORY TYPE CODE TESTS RESULT OUT OF REFERENCE UNITS RANGE LAB 1547-9 High 70-105 mg/dL GLUCOSE 107 LAB NA(LOINC) 136-146 mEq/L Sodium Level 136 LAB K(LOINC) 3.5-5.1 mEq/L Potassium Level 3.7 LAB CL(LOINC) 98-107 mEq/L Chloride 102 LAB CO2(LOINC) 22-29 mEq/L CO2 24 LAB EBAL(LOINC mEq/L ) Electrolyte 10.0 Balance LAB BUN(LOINC) 7.0-18.0 mg/dL BUN 8.0 LAB CRE(LOINC) 0.6-1.2 mg/dL Creatinine Lvl 0.7 (s) LAB BC(LOINC) 7-27 ratio BUN/Creatinine 11 Ratio LAB CA(LOINC) 8.4-10.2 mg/dL Calcium Lvl 9.1 LAB PROT(LOINC 6.0-8.3 G/dL ) Total Protein 6.0 LAB ALB(LOINC) 3.5-5.0 G/dL Albumin Level 3.6 LAB GLB(LOINC) G/dL Globulin 2.4 LAB AG(LOINC) 1.1-2.5 ratio A/G Ratio 1.5 LAB BILT(LOINC 0.2-1.0 mg/dL ) Bili Total 0.4 LAB AP(LOINC) High 40-135 IU/L Alk Phos 141 LAB AST(LOINC) 10-40 IU/L AST/SGOT 10 LAB ALT(LOINC) Low 10-35 IU/L ALT/SGPT 7 Performed By: #### CBC, ADIFF, ANEU, URIC, GFR, CMP #### [address] [address] UA Collected: 06/13/2017 Status: F Source: [facility] 10:04 [facility] REPOSITORY TYPE CODE TESTS RESULT OUT OF REFERENCE UNITS RANGE LAB SPCUA(LOIN C) UA Specimen Type Clean Catch LAB CLRUA(LOIN C) UA Color YELLOW LAB APPUA(LOIN C) UA Appear CLEAR LAB SGUA(LOINC ) UA Spec Grav 1.025 LAB GLUA(LOINC mg/dL ) UA Glucose NEGATIVE LAB BILUA(LOIN C) UA Bili NEGATIVE LAB KETUA(LOIN mg/dL C) UA Ketones NEGATIVE LAB BLDUA(LOIN C) UA Blood NEGATIVE LAB PHUA(LOINC ) UA pH 6.0 LAB PROUA(LOIN mg/dL C) UA Protein NEGATIVE LAB UROUA(LOIN E.U./dL C) UA Urobilinogen 0.2 LAB NITUA(LOIN C) UA Nitrite NEGATIVE LAB LEUUA(LOIN C) UA Leuk Est SMALL Performed By: #### UA, UAMICAO #### [address] [address] .URINALYSIS MICROSCOPIC Collected: 06/13/2017 Status: F Source: [place] 908 [employer]) 10:04 [facility] REPOSITORY TYPE CODE TESTS RESULT OUT OF RANGE REFERENCE UNITS LAB WBCUA(LOIN Abnormal None Seen /hpf C) UA WBC 5-10 LAB RBCUA(LOIN None Seen /hpf C) UA RBC None Seen LAB EPIUA(LOIN Abnormal None Seen /hpf C) UA Squam 5-10 Epithelial LAB BACUA(LOIN Abnormal /hpf C) UA Bacteria Trace LAB YSTUA(LOIN Abnormal /hpf C) UA Yeast 1+ Performed By: #### UA, UAMICAO #### [address] [address] CRUR Collected: 06/13/2017 Status: F Source: [facility] 10:04 AM [facility] REPOSITORY TYPE CODE TESTS RESULT OUT OF REFERENCE UNITS RANGE LAB CRU(LOINC) 28.0-217.0 mg/dL U Creatinine 138.6 Performed By: #### CRUR, PRUR #### [facility] [address] [address] PRUR Collected: 06/13/2017 Status: F Source: [facility] 10:04 AM [facility] REPOSITORY TYPE CODE TESTS RESULT OUT OF REFERENCE UNITS RANGE LAB PRU(LOINC) High 0-14 mg/dL U Protein 16 Performed By: #### CRUR, PRUR #### [place] [address] GROUP A STREP BY Collected: 05/25/2017 Status: F Source: [facility] 10:04 PM [facility] REPOSITORY TYPE CODE TESTS RESULT OUT OF REFERENCE UNITS RANGE LAB GASSRC GAS Throat Swab Specimen Source LAB PCRGAS Group A Negative for Strep PCR Group A Streptococcus by PCR. Result Comment: This test was developed and its performance characteristics determined by [facility]'s Scotty Schneider [facility] [place] ([facility]). It has not been cleared or approved by the FDA. -[facility] is regulated under CLIA as qualified to perform high-complexity testing. This test is used for clinical purposes. It should not be regarded as inv estigational or for research. Performed By: #### GASPCR #### [facility] [address] [place], [place] [address] PROGRESS Observed: 05/25/2017 Status: COMPLETED Source: [place] 8:36 AM [facility] REPOSITORY HNO ID: [id number]: Celso Blue: (none)Author Type: Nurse PractitionerType: Progress NotesFiled: 05/25/2017 9:32 AMNote Text:HPIHPI Kanchan Linda is a 26 year old female who presents today for CC ofnasal congestion, sore throat, cough, ear pain. This started 10 days.Has tried tylenol. Symptoms are made relieved by nothing. Symptoms areworsened by nothing. Risk factors patient is 31 weeks . Hashistory of copd, not being treatedNonsmokerReview of SystemsConstitutional: Negative for chills, fever and weight loss.HENT: Positive for congestion, ear pain and sore throat. Negative fornosebleeds.Respiratory: Positive for cough. Negative for shortness of breath andwheezing.Musculoskeletal: Negative for neck pain.Skin: Negative for itching and rash.PAST MEDICAL HISTORYDiagnosis Date- CP (cerebral palsy) (HCC)PAST SURGICAL HISTORYProcedure Laterality Date- HEART SURGERY HX for a leaky valve 1996ALLERGIES Review of patient's allergies indicates no known allergies.MEDICATIONSprenatal multivitamin 90-1-50 mg tab Take 1 tablet by mouth daily withbreakfast.ibuprofen (MOTRIN) 600 mg tablet Take 1 tablet by mouth every 6 hours asneeded for Pain.ondansetron orally disintegrating (ZOFRAN ODT) 4 mg disintegrating tabletTake 1 tablet by mouth every 6 hours.No family history on file.Social HistorySubstance Use Topics- Smoking status: Never Smoker- Smokeless tobacco: Never Used- Alcohol use NoBlood pressure 112/62, pulse 93, temperature 36.7 ?C (98.1 ?F),temperature source Left Tympanic, resp. rate 16, weight 98 kg (216 lb),SpO2 98 %.Physical ExamConstitutional: No distress.HENT:Head: Normocephalic.Right Ear: No drainage, swelling or tenderness. Tympanic membrane is notperforated, not erythematous and not bulging.Left Ear: No drainage, swelling or tenderness. Tympanic membrane iserythematous and bulging. Tympanic membrane is not perforated.Nose: Right sinus exhibits maxillary sinus tenderness. Left sinus exhibitsmaxillary sinus tenderness.Eyes: Conjunctivae, EOM and lids are normal. Pupils are equal, round, andreactive to light.Cardiovascular: Normal rate, regular rhythm and normal heart sounds.Pulmonary/Chest: Effort normal and breath sounds normal.Dry cough during examLymphadenopathy: She has no cervical adenopathy.Neurological: She is alert.Skin: She is not diaphoretic.ASSESSMENT/PLAN:1. Acute otitis media, left - ICD9: 382.9, ICD10: H66.92 (primarydiagnosis)- Will begin treatment with Augmentin 875 mg PO BID for 10 days- Supportive care with plenty of fluids, rest, and analgesia prn.- Follow up in one week if symptoms persist or worsen.-recent amoxicillin for strep given at ER- AMOXICILLIN 875 MG-POTASSIUM CLAVULANATE 125 MG TABLET2. Sore throat - ICD9: 462, ICD10: J02.9- Rapid Strep negative in the office today and Throat culture pending- Discussed supportive care treatment with fluids, rest and analgesia.- The patient should follow up in 3-5 days if symptoms persist or worsen- Call back if drooling, increased temperature, symptoms of dehydrationand/or still sick in one week- RAPID STREP TEST B/O- GROUP A STREPTOCOCCUS BY PCR3. Sinobronchitis - ICD9: 473.9, 490, ICD10: J32.9, J40- Will begin treatment with Augmentin 875 mg PO BID for 10 days- Supportive care with plenty of fluids, rest, and analgesia prn.- Follow up in 3-5 days if symptoms persist or worsen.- AMOXICILLIN 875 MG-POTASSIUM CLAVULANATE 125 MG TABLETWill establish with pcp todayContact firebrick layer and notify of new medicationPrescription instructions reviewed with patient as applicable. Patientadvised if symptoms do not improve or if symptoms worsen sooner, tocontact the office for further evaluation by their primary care physician. Potential red flag symptoms discussed with the patient. Reviewedappropriate action plan to take if red flag symptoms occur. Patientagreeable to treatment plan.KIRK Perez Observed: 05/25/2017 Status: COMPLETED Source: [facility] 8:00 AM [facility] REPOSITORY Office Visit (WSTR) [facility]ANCHAN LINDA ([id number]) 1990 [facility] Qdtpyhjxae11/28/17 8:00 AM CELSO OROZCO) UCWSTR During your visit today, we recorded the following information about you: Temperature Pulse Respiration Blood pressure 98.1 degrees 93/minute 16/minute 112/62 Weight 98 kgCelso Orozco CNP 05/25/2017 9:32 AM SignedHPIHPI Kanchan Linda is a 26 year old female who presents today for CC of nasalcongestion, sore throat, cough, ear pain. This started 10 days. Has triedtylenol. Symptoms are made relieved by nothing. Symptoms are worsened bynothing. Risk factors patient is 31 weeks . Has history of copd, notbeing treatedNonsmokerReview of SystemsConstitutional: Negative for chills, fever and weight loss.HENT: Positive for congestion, ear pain and sore throat. Negative fornosebleeds.Respiratory: Positive for cough. Negative for shortness of breath and wheezing.Musculoskeletal: Negative for neck pain.Skin: Negative for itching and rash.PAST MEDICAL HISTORYDiagnosis Date- CP (cerebral palsy) (HCC)PAST SURGICAL HISTORYProcedure Laterality Date- HEART SURGERY HX for a leaky valve 1996ALLERGIES Review of patient's allergies indicates no known allergies.MEDICATIONSprenatal multivitamin 90-1-50 mg tab Take 1 tablet by mouth daily withbreakfast.ibuprofen (MOTRIN) 600 mg tablet Take 1 tablet by mouth every 6 hours as neededfor Pain.ondansetron orally disintegrating (ZOFRAN ODT) 4 mg disintegrating tablet Take1 tablet by mouth every 6 hours.No family history on file.Social HistorySubstance Use Topics- Smoking status: Never Smoker- Smokeless tobacco: Never Used- Alcohol use NoBlood pressure 112/62, pulse 93, temperature 36.7 ?C (98.1 ?F), temperaturesource Left Tympanic, resp. rate 16, weight 98 kg (216 lb), SpO2 98 %.Physical ExamConstitutional: No distress.HENT:Head: Normocephalic.Right Ear: No drainage, swelling or tenderness. Tympanic membrane is notperforated, not erythematous and not bulging.Left Ear: No drainage, swelling or tenderness. Tympanic membrane iserythematous and bulging. Tympanic membrane is not perforated.Nose: Right sinus exhibits maxillary sinus tenderness. Left sinus exhibitsmaxillary sinus tenderness.Eyes: Conjunctivae, EOM and lids are normal. Pupils are equal, round, andreactive to light.Cardiovascular: Normal rate, regular rhythm and normal heart sounds.Pulmonary/Chest: Effort normal and breath sounds normal.Dry cough during examLymphadenopathy: She has no cervical adenopathy.Neurological: She is alert.Skin: She is not diaphoretic.ASSESSMENT/PLAN:1. Acute otitis media, left - ICD9: 382.9, ICD10: H66.92 (primary diagnosis)- Will begin treatment with Augmentin 875 mg PO BID for 10 days- Supportive care with plenty of fluids, rest, and analgesia prn.- Follow up in one week if symptoms persist or worsen.-recent amoxicillin for strep given at ER- AMOXICILLIN 875 MG-POTASSIUM CLAVULANATE 125 MG TABLET2. Sore throat - ICD9: 462, ICD10: J02.9- Rapid Strep negative in the office today and Throat culture pending- Discussed supportive care treatment with fluids, rest and analgesia.- The patient should follow up in 3-5 days if symptoms persist or worsen- Call back if drooling, increased temperature, symptoms of dehydration and/orstill sick in one week- RAPID STREP TEST B/O- GROUP A STREPTOCOCCUS BY PCR3. Sinobronchitis - ICD9: 473.9, 490, ICD10: J32.9, J40- Will begin treatment with Augmentin 875 mg PO BID for 10 days- Supportive care with plenty of fluids, rest, and analgesia prn.- Follow up in 3-5 days if symptoms persist or worsen.- AMOXICILLIN 875 MG-POTASSIUM CLAVULANATE 125 MG TABLETWill establish with pcp todayContact firebrick layer and notify of new medicationPrescription instructions reviewed with patient as applicable. Patient advisedif symptoms do not improve or if symptoms worsen sooner, to contact the officefor further evaluation by their primary care physician. Potential red flagsymptoms discussed with the patient. Reviewed appropriate action plan to takeif red flag symptoms occur. Patient agreeable to treatment plan.Ashtyn Perez CNP 05/25/2017 8:47 AM SignedASSESSMENT/PLAN:1. Acute otitis media, left - ICD9: 382.9, ICD10: H66.92 (primary diagnosis)- Will begin treatment with Augmentin 875 mg PO BID for 10 days- Supportive care with plenty of fluids, rest, and analgesia prn.- Follow up in one week if symptoms persist or worsen.- AMOXICILLIN 875 MG-POTASSIUM CLAVULANATE 125 MG TABLET2. Sore throat - ICD9: 462, ICD10: J02.9- Rapid Strep negative in the office today and Throat culture pending- Discussed supportive care treatment with fluids, rest and analgesia.- The patient should follow up in 3-5 days if symptoms persist or worsen- Call back if drooling, increased temperature, symptoms of dehydration and/orstill sick in one week- RAPID STREP TEST B/O- GROUP A STREPTOCOCCUS BY PCR3. Sinobronchitis - ICD9: 473.9, 490, ICD10: J32.9, J40- Will begin treatment with Augmentin 875 mg PO BID for 10 days- Supportive care with plenty of fluids, rest, and analgesia prn.- Follow up in 3-5 days if symptoms persist or worsen.- AMOXICILLIN 875 MG-POTASSIUM CLAVULANATE 125 MG TABLETContact firebrick layer and notify of new medicationReferring Provider: SELF [200]Allergies As of Date: 05/25/2017(No Known Allergies)Date Reviewed: 05/25/2017Reviewed by: Celso Orozco - Fully AssessedReason for Visit: Cough [28] Cmt: x 3 weeks Sore Throat [200] Cmt: x 10 days throat sore on left side Ear Pain [817] Cmt: x 10 days left ear pain Post Nasal Drip [1367] Cmt: x 10 daysPrimary Visit Diagnosis:Acute otitis media, left [H66.92] Other Visit Diagnoses:Sore throat [J02.9] Sinobronchitis [J32.9, J40]Order(s):RAPID STREP TEST B/O [5571802] Order #: [id number] GROUP A STREPTOCOCCUS BY PCR [SQGASPCR] Order #: [id number] amoxicillin-clavulanic acid (AUGMENTIN) 875-125 mg per tabletTake 1 tablet by mouth twice daily for 10 days.Disp: 20 tabletRfl: 0Prescriptions as of 05/25/2017 Sig: VITS NO.15-IRON 90 M* Take 1 tablet by mouth daily * AMOXICILLIN 875 MG-POTASSIUM * Take 1 tablet by mouth twice * IBUPROFEN 600 MG TABLET Take 1 tablet by mouth every * Patient not taking: Reported on 05/25/2017 ONDANSETRON 4 MG DISINTEGRATI* Take 1 tablet by mouth every * Patient not taking: Reported on 05/25/2017Problem List As Of Date: 05/25/2017(None) Other instructions from your clinician: ASSESSMENT/PLAN: 1. Acute otitis media, left - ICD9: 382.9, ICD10: H66.92 (primary diagnosis) - Will begin treatment with Augmentin 875 mg PO BID for 10 days - Supportive care with plenty of fluids, rest, and analgesia prn. - Follow up in one week if symptoms persist or worsen. - AMOXICILLIN 875 MG-POTASSIUM CLAVULANATE 125 MG TABLET 2. Sore throat - ICD9: 462, ICD10: J02.9 - Rapid Strep negative in the office today and Throat culture pending - Discussed supportive care treatment with fluids, rest and analgesia. - The patient should follow up in 3-5 days if symptoms persist or worsen - Call back if drooling, increased temperature, symptoms of dehydration and/or still sick in one week - RAPID STREP TEST B/O - GROUP A STREPTOCOCCUS BY PCR 3. Sinobronchitis - ICD9: 473.9, 490, ICD10: J32.9, J40 - Will begin treatment with Augmentin 875 mg PO BID for 10 days - Supportive care with plenty of fluids, rest, and analgesia prn. - Follow up in 3-5 days if symptoms persist or worsen. - AMOXICILLIN 875 MG-POTASSIUM CLAVULANATE 125 MG TABLET Contact firebrick layer and notify of new medicationPrescriptions ordered this encounter Disp Refills Start End AMOXICILLIN 875 MG-POTASSIUM CLAVULA* 20 t* 0 05/25/2017 06/04/2017 Route: ORAL Sig: Take 1 tablet by mouth twice daily for 10 days. Status:Closed by CELSO OROZCO CNP on 05/25/17 GL3 Collected: 05/19/2017 Status: F Source: [place] 1:14 PM [facility] REPOSITORY TYPE CODE TESTS RESULT OUT OF REFERENCE UNITS RANGE LAB GL3(LOINC) 70-145 mg/dL Glucose 3 105 Hr Performed By: #### GLF, GL1, GL2, GL3 #### [address] [address] GL2 Collected: 05/19/2017 Status: F Source: [employer] 12:10 PM [facility] REPOSITORY TYPE CODE TESTS RESULT OUT OF REFERENCE UNITS RANGE LAB GL2(LOINC) High 70-165 mg/dL Glucose 2 191 Hr Result Comment: *Diabetes mellitus is indicated in non- adults when the 2-hr glucose is greater than or equal to 200 mg/dL OR the FBS is greater than or equal to 126 mg/dL. *Gestational diabetes is indicated when two or more of the following glucose concentrations are met or exceeded: Fasting glucose 110 mg/dL 1-hr glucose 190 mg/dL 2-hr glucose 165 mg/dL 3-hr glucose 145 mg/dL Performed By: #### GLF, GL1, GL2, GL3 #### [address] [address] GL1 Collected: 05/19/2017 Status: F Source: [employer] 11:08 AM [facility] REPOSITORY TYPE CODE TESTS RESULT OUT OF REFERENCE UNITS RANGE LAB GL1(LOINC) 120-190 mg/dL Glucose 1 187 Hr Performed By: #### GLF, GL1, GL2, GL3 #### [address] [address] GLF Collected: 05/19/2017 Status: F Source: [employer] 9:20 AM [facility] REPOSITORY TYPE CODE TESTS RESULT OUT OF REFERENCE UNITS RANGE LAB GLF(LOINC) 70-105 mg/dL Glucose 96 Fasting Performed By: #### GLF, GL1, GL2, GL3 #### [address] [address] UA Collected: 05/19/2017 Status: F Source: [facility] 12:46 AM [facility] REPOSITORY TYPE CODE TESTS RESULT OUT OF RANGE REFERENCE UNITS LAB SPCUA(JULIA NC) UA Specimen Void Type LAB CLRUA(JULIA NC) UA Color YELLOW LAB APPUA(JULIA NC) UA Appear CLEAR LAB SGUA(LOIN Abnormal C) UA Spec Grav >=1.030 LAB GLUA(LOIN mg/dL C) UA Glucose NEGATIVE LAB BILUA(JULIA NC) UA Bili NEGATIVE LAB KETUA(JULIA mg/dL NC) UA Ketones NEGATIVE LAB BLDUA(JULIA NC) UA Blood NEGATIVE LAB PHUA(LOIN C) UA pH 5.5 LAB PROUA(JULIA mg/dL NC) UA Protein NEGATIVE LAB UROUA(JULIA E.U./dL NC) UA Urobilinogen 0.2 LAB NITUA(JULIA NC) UA Nitrite NEGATIVE LAB LEUUA(JULIA NC) UA Leuk Est NEGATIVE Performed By: #### UA, UAMICAO #### [facility] [address] [place], [place] [address] .URINALYSIS MICROSCOPIC Collected: 05/19/2017 Status: F Source: [place]) 12:46 AM [facility] REPOSITORY TYPE CODE TESTS RESULT OUT OF REFERENCE UNITS RANGE LAB WBCUA(LOIN None Seen /hpf C) UA WBC None Seen LAB RBCUA(LOIN None Seen /hpf C) UA RBC None Seen LAB EPIUA(LOIN None Seen /hpf C) UA Squam None Epithelial Seen Performed By: #### UA, UAMICAO #### [facility] [address] [place], [place] [address] DISCHARGE INSTRUCTION Observed: 05/08/2017 Status: F Source: [place] 10:43 PM [facility] REPOSITORY [facility] [address] [place], [place] [address]Miwlxubli Vcbgigwkmzt39/11/17 2242MR#: [id number] Acct: [id number]: KANCHAN LINDA Rep #: [id number]: 1990 26 From: Albert Fuentes MDPCP: OUT OF TOWN DOCTOR Status: PRE ERED Disposition- Plan for ED Patient:Disposition: Home or Assisted LivingChief Complaint: Sore ThroatInstructions: ED Strep Pharyngitis ConfPrescriptions:Penicillin V Potassium 500 mg PO BID #19 tabReferrals:[facility] Doctor,Out of [Primary Care Provider] -What to do if you have ProblemsFor any increased pain, shortness of breath, bleeding, nausea or vomiting, chest pain, or anyunexpected problems, contact your Primary Care Provider. Call [facility] ([phone])or report to the closest Emergency Room.Call 911 if necessary.05/08/173 <Electronically signed by Albert Fuentes MD>Date Albert Fuentes [facility] Signature (If Indicated): Date CC: No Primary Care Physician; OUT OF TOWN DOCTOR EMERGENCY DEPARTMENT Observed: 05/08/2017 Status: F Source: [place] SUMMARY 10:42 PM [facility] REPOSITORY [facility] [address] [facility] [place], [place] [address]Vodmftfzc Department Dvbdwgc41/11/17 2241MR#: [id number] Acct: [id number]: KANCHAN LINDA Rep #: [id number]: 1990 26 From: Albert Fuentes MDPCP: OUT OF TOWN DOCTOR Status: PRE ER- ER Visit SummaryDate of Service: 05/08/17Chief Complaint: Sore throatHistory of Present Illness: The patient is a 26 F who has had a sore throat. Startedyesterday. Worse with swallowing. Her temp is 10 2 F at home today. She took Tylenol. Shedenies a cough. She has been gargling with salt water. She took nothing else. She is 29weeks gestation. Denies any symptoms with thatPhysical Examination: Vital signs reviewed. HEENT exam reveals tonsillar enlargement withexudates. There is erythema in the posterior oropharynx. Heart is regular. Lungs are clear.Abdomen soft and gravid. Neurologic exam normalTest Results: None indicatedEmergency Department Course and Treatment: She will be treated with penicillin here. She willgo home with the same and she will follow up with her PCPTreatment Plan: []Disposition: DischargeImpression: PharyngitisThis note was generated with Snapguide dictation software. It may contain incorrect words,spelling, and punctuation that were not noted in review of the chart prior to signingED Disposition- Plan for ED Patient:Chief Complaint: Sore ThroatReferrals:[facility] Doctor,Out of [Primary Care Provider] -What to do if you have ProblemsFor any increased pain, shortness of breath, bleeding, nausea or vomiting, chest pain, or anyunexpected problems, contact your Primary Care Provider. Call Doctors Registry ([phone])or report to the closest Emergency Room.Call 911 if necessary.05/08/172241 <Electronically signed by Albert Fuentes MD>Date Albert Fuentes MDCosigner Signature (If Indicated): Date CC: No Primary Care Physician; OUT OF [facility] DOCTOR ANNA Collected: 05/04/2017 Status: F Source: [employer] 11:53 AM [facility] REPOSITORY TYPE CODE TESTS RESULT OUT OF RANGE REFERENCE UNITS LAB HGB(LOINC) 12.0-16.0 G/dL Hgb 12.8 LAB HCT(LOINC) 37.0-47.0 % Hct 38.2 Performed By: #### ANNA, GLU1P #### [facility] [address] [address] GLU1P Collected: 05/04/2017 Status: F Source: [employer] 11:53 AM [facility] REPOSITORY TYPE CODE TESTS RESULT OUT OF RANGE REFERENCE UNITS LAB GLU1P(LOINC High 70-140 mg/dL ) Gluc 174 1Hr PP Performed By: #### ANNA, GLU1P #### [place] [address] [place], [place] [address] US OB LIMITED Observed: 03/30/2017 Status: F Source: [employer] 6:23 PM [facility] ORIGINAL OBSTETRICS REPORT (Signed Final 03/30/2017 06:42 pm) Patient Info ID #: [id number] : [birth year] (26 yrs)(F) Name: KANCHAN Mary Visit Date: 03/30/2017 06:26 pm TESSANNE Performed By Performed By: Cherise Duque [facility] Referred By: Alexis Steele [facility] Location: [facility] Service(s) Provided Transvaginal Obstetrical Follow-up Indications cervical length Evaluation Num Of Fetuses: 1 Preg. Location: Intrauterine Heart Rate: 171 bpm Cardiac Activity: Observed Lie: Spine up Presentation: Cephalic Placenta: Posterior, Grade 1 Amniotic Fluid ELIOT FV: Within Normal Limits ELIOT Sum: 11.48 cm Larg Pckt: 4.07 cm RUQ: 4.07 cm LUQ: 2.42 cm RLQ: 2.38 cm LLQ: 2.61 cm Biometry BPD: 58.71 mm G. Age: 24w 0d OFD: 77.45 mm HC: 222.28 mm G. Age: 24w 2d 66 % AC: 187.94 mm G. Age: 23w 4d 46 % FL: 41.89 mm G. Age: 23w 5d 45 % CI: 75.8 % 70 - 86 FL/HC: 18.8 % 19.2 - 20.8 HC/AC: 1.18 1.05 - 1.21 FL/BPD: 71.4 % 71 - 87 FL/AC: 22.3 % 20 - 24 Est. FW: 618 gm 1 lb 6 oz 49 % Gestational Age LMP: 24w 0d Date: 10/13/16 KEVIN: 07/20/17 U/S Today: 23w 6d KEVIN: 07/21/17 Best: 23w 3d Det. By: Walker/Ailyn Navarro KEVIN: 07/24/17 (12/06/16) Anatomy Cranium: Normal appearance Ventricles: Normal appearance Choroid Plexus: Normal appearance Cerebellum: Normal appearance Posterior Fossa: Normal appearance Nuchal Fold: Normal appearance Face: Normal appearance Lips: Normal appearance Heart: Suboptimal views due to position Stomach: Normal appearance Abdomen: Normal appearance Abdominal Wall: Normal appearance Cord Vessels: Normal appearing 3 vessel Kidneys: Normal appearance Bladder: Normal appearance Spine: Normal appearance Targeted Anatomy Other Genitalia: Male Cervix Uterus Adnexa Cervical Length: 3.7 cm Cervix: Measured transvaginally Impression 1. Cervical length is 3.7 cm, measured transvaginally. 2. ELIOT is 11.5 cm with the largest pocket measuring 4 cm. 3. heart not well visualized. Remainder of the anatomic survey is within normal limits. 4. Estimated gestational age is 23 weeks and 3 days based on 12/06/2016 exam. Thank you for sharing in the care of Ms. KANCHAN LINDA with us. Please do not hesitate to contact us if you have any questions or concerns. Saurav Pelayo MDElectronically Signed Final Report 03/30/2017 06:42 pm UA Collected: 03/30/2017 Status: F Source: [facility] 3:55 PM [facility] REPOSITORY TYPE CODE TESTS RESULT OUT OF RANGE REFERENCE UNITS LAB SPCUA(JULIA NC) UA Specimen Clean Type Catch LAB CLRUA(JULIA NC) UA Color Yellow LAB APPUA(JULIA Abnormal Clear NC) UA Appear Slightly Cloudy LAB SGUA(LOIN Abnormal C) UA Spec Grav 1.010 LAB GLUA(LOIN Negative mg/dL C) UA Glucose Negative LAB BILUA(JULIA Negative NC) UA Bili Negative LAB KETUA(JULIA Negative mg/dL NC) UA Ketones Negative LAB BLDUA(JULIA Negative NC) UA Blood Negative LAB PHUA(LOIN C) UA pH 7.0 LAB PROUA(JULIA Negative mg/dL NC) UA Protein Negative LAB UROUA(JULIA E.U./dL NC) UA Urobilinogen 0.2 LAB NITUA(JULIA Negative NC) UA Nitrite Negative LAB LEUUA(JULIA Negative NC) UA Leuk Est Negative Performed By: #### UA, UAMICAO #### [address] [address] .URINALYSIS MICROSCOPIC Collected: 03/30/2017 Status: F Source: [place] () 3:55 PM [facility] REPOSITORY TYPE CODE TESTS RESULT OUT OF RANGE REFERENCE UNITS LAB WBCUA(LOIN Abnormal None Seen /hpf C) UA WBC 0-5 LAB RBCUA(LOIN Abnormal None Seen /hpf C) UA RBC 0-5 LAB EPIUA(LOIN Abnormal None Seen /hpf C) UA Squam 5-10 Epithelial LAB BACUA(LOIN Abnormal /hpf C) UA Bacteria Trace LAB YSTUA(LOIN Abnormal /hpf C) UA Yeast Trace Performed By: #### UA, UAMICAO #### [place] [address] Observed: 03/22/2017 Status: F Source: [facility] 10:04 AM [facility] REPOSITORY . MICRO - MicrobiologyPROCEDURE: Urine Culture [*1] Urine BODY SITE:COLLECTED DATE/TIME: 03/22/2017 10:04 EDT RECEIVED DATE/TIME: 03/22/2017 15:23 EDTSTART DATE/TIME: 03/22/2017 15:23 EDT FREE TEXT SOURCE:FINAL REPORTSFinal Report []Verified Date/Time/Personnel: 03/24/2017 07:48 EDT25,000 organisms per mLMixed without predominant isolate(s). SensitivityTesting not indicated. Probably contamination. Repeatculture suggested.PRELIMINARY REPORTSPreliminary Report []Verified Date/Time/Personnel: 03/23/2017 08:13 EDTNo growth to datePerforming Locations*1: This test was performed at: [address], [address] [place] [address] Performed By: #### CUR ####[place] [address] XR CHEST 2 VIEWS Observed: 03/22/2017 Status: F Source: [facility] 9:21 AM [facility] REPOSITORY ORIGINAL2 view chest CLINICAL HISTORY: Cough COMPARISON: 07/15/2014. FINDINGS: The cardiomediastinal contours are normal. There is no focal airspace disease. No nodule or mass is identified. There is no appreciable pleural fluid or pneumothorax. No suspicious osseous abnormality is identified. IMPRESSION:1. No acute radiographic findings. Interpreted By: Luis Hyattreliminary Report By: Luis Hyatt MDElectronically Signed By: Luis Hyatt MD Dictated Date: 03/22/2017 9:39:31 AM Prelim Date: 03/22/2017 9:39:31 AM Sign Date: 03/22/2017 9:40:04 AM UA Collected: 03/22/2017 Status: F Source: [facility] 9:12 AM [facility] REPOSITORY TYPE CODE TESTS RESULT OUT OF RANGE REFERENCE UNITS LAB SPCUA(JULIA NC) UA Specimen Void Type LAB CLRUA(JULIA NC) UA Color Yellow LAB APPUA(JULIA Abnormal Clear NC) UA Appear Slightly Cloudy LAB SGUA(LOIN C) UA Spec Grav 1.015 LAB GLUA(LOIN Negative mg/dL C) UA Glucose Negative LAB BILUA(JULIA Negative NC) UA Bili Negative LAB KETUA(JULIA Negative mg/dL NC) UA Ketones Negative LAB BLDUA(JULIA Negative NC) UA Blood Negative LAB PHUA(LOIN C) UA pH 6.0 LAB PROUA(JULIA Negative mg/dL NC) UA Protein Negative LAB UROUA(JULIA E.U./dL NC) UA Urobilinogen 0.2 LAB NITUA(JULIA Negative NC) UA Nitrite Negative LAB LEUUA(JULIA Abnormal Negative NC) UA Leuk Est Small Performed By: #### UA, UAMICAO #### [place] [address] [place], [place] [address] .URINALYSIS MICROSCOPIC Collected: 03/22/2017 Status: F Source: [facility] [place]) 9:12 AM [facility] REPOSITORY TYPE CODE TESTS RESULT OUT OF RANGE REFERENCE UNITS LAB WBCUA(LOIN Abnormal None Seen /hpf C) UA WBC 5-10 LAB RBCUA(LOIN Abnormal None Seen /hpf C) UA RBC 0-5 LAB EPIUA(LOIN Abnormal None Seen /hpf C) UA Squam 5-10 Epithelial LAB BACUA(LOIN Abnormal /hpf C) UA Bacteria Trace Performed By: #### UA, UAMICAO #### [facility] [address] [address] EMERGENCY DEPARTMENT Observed: 03/20/2017 Status: F Source: [place] [facility] 3:59 PM [facility] REPOSITORY [facility] [address] [place], [place] [address]Qmkvtopts Department Zgkwyky31/23/17 1540#: [id number] Acct: [id number]: KANCHAN LINDA Rep #: [id number]: 1990 26 From: Ze German MDPCP: Care Physician,No Primary Status: REG ER- ER Visit SummaryDate of Service: 03/20/17Chief Complaint: Productive cough 2 weeksHistory of Present Illness: The patient is a 26 F who presents because of productive cough forthe past 2 weeks. She states her sputum is green in color. She is a non-smoker. Does havehistory of asthma. She has not been using her inhaler because she read on Web MD may causeincrease in heart rate and resultant . She denies fever, chills night sweats. Shedenies rhinorrhea, postnasal drainage, earache or sore throat. She denies any chest pain. Shedoes complain of mild shortness of breath and dyspnea with exertion. She denies any leg pain,swelling discoloration.Physical Examination: Vital signs are remarkable heart rate 102 otherwise normal. Head isatraumatic normocephalic. Pupils are equal round reactive. Extraocular muscles are intact.TMs are pearly white with landmarks noted. Nares patent with no drainage. Posterior pharynxwithout erythema or exudate. Uvula is midline. There is no dysphonia or dysphasia. Tracheais midline. There is no stridor with auscultation of the neck. Heart is regular with a normalS1 and S2. There is no murmur, gallop or rub. Breath sounds are noted bilaterally withwheezing heard throughout and increased x-ray phase. There is no use of accessory muscles orevidence of respiratory distress. Insert lower extremity DVTTest Results: No prior to treatment was 350.Emergency Department Course and Treatment: Patient was treated with a DuoNeb followed by analbuterol treatment. She will receive a prescription for azithromycin which is safe duringpregnancy. Gestation is 22 weeks.Treatment Plan: Patient received a prescription for Zithromax. She was instructed to use herinhaler every 2-4 hours while awake for the next 3-5 days.Disposition: Discharged home in stable improved conditionImpression:1. Purulent bronchitis2. Exacerbation of asthma secondary to #13. Second trimester pregnancyED Disposition- Plan for ED Patient:Disposition: Home or Assisted LivingChief Complaint: CoughInstructions: ED Upper Resp Infec Abx Tx, ED WheezingPrescriptions:Azithromycin [Zithromax Z-Theodore] 250 mg PO UD #1 boxReferrals:Care Physician,No Primary [Primary Care Provider] -Additional Instructions:Your prescription was electronically transmitted to [facility] pharmacy.Puffs of your inhaler every 2-4 hours while awake for the next 3-5 days then every 4 hours asneeded.What to do if you have ProblemsFor any increased pain, shortness of breath, bleeding, nausea or vomiting, chest pain, or anyunexpected problems, contact your Primary Care Provider. Call [facility] ([phone])or report to the closest Emergency Room.Call 911 if necessary.03/20/17 0317 <Electronically signed by Ze German MD>Date Ze German MDCosigner Signature (If Indicated): Date CC: No Primary Care Physician ALLERGIES ALLERGIES DATE TYPE / CODE NAME / CODE REACTION SEVERITY SOURCE 02/02/2018 Drug pyridoxine/F0060 Swelling Unknown [facility]416 88064(RXNO) [facility] 293441(SNOM Repository ED CT) 02/02/2018 Drug doxylamine/F0060 Swelling Unknown [facility]/416 16250(RXNO) Hospital 121405(SNOM Repository ED CT) 03/20/2017 Drug pyridoxine/F0060 Swelling [facility]416 40027(RXNO) [facility] 639213(SNOM Repository ED CT) 03/20/2017 Drug doxylamine/F0060 Swelling [facility]/416 65342(RXNO) Hospital 324852(SNOM Repository ED CT) Drug NO KNOWN [facility] Class/35612 ALLERGIES [address] [place] 100[address](SNOMED Repository CT) ENCOUNTERS ENCOUNTERS ADMIT/DISCHARGE ACCOUNT NUMBER ADMITTING ENCOUNTER LOCATION SOURCE CLASS 03/18/2018 [id number] Emergency [facility] ding:ED Repository 02/02/2018/02/03/20 [id number] Emergency [address] ding:ED Repository 01/30/2018/01/31/20 [id number] Ambulatory [address] ding:[facility] Repository 01/23/2018/01/24/20 [id number] Ambulatory [facility] [address] ding:[facility] Repository 01/13/2018/01/14/20 [id number] Emergency [address] ding:ED Repository 09/01/2017/09/02/19 [id number] Emergency [address] ding:ED Repository 07/23/2017/07/25/19 [id number] CAR YOUNG, Inpatient BBuilding:OB [facility] 18 HEVER A Encounter URoom: Health 0217Bed: A [facility] Repository 07/21/2017/07/21/19 [id number] Ambulatory BBuilding:OB [facility] 18 URoom: Health 0217Bed: A [facility] Repository 07/20/2017/07/21/19 [id number] Emergency BBuilding:ER [facility] 18 O [facility] Repository 07/19/2017/07/19/19 [id number] Ambulatory [address] :[facility] Repository 07/09/2017 [id number] Ambulatory [facility] ding:[place] Repository 06/26/2017/06/26/19 [id number] Emergency BBuilding:ER [facility] 18 O [facility] Repository 06/25/2017/06/25/19 [id number] Emergency BBuilding:ER [facility] 18 O [facility] Repository 06/15/2017/06/15/19 [id number] Ambulatory [address] Repository 06/13/2017/06/13/19 [id number] Ambulatory BBuilding:OB [facility] 18 URoom: Health 0213Bed: A [facility] Repository 06/05/2017/06/05/19 [id number] Ambulatory [address] ding:[place] Repository 05/25/2017/05/25/20 [id number] Ambulatory [address] Repository 05/19/2017/05/19/20 [id number] Ambulatory [facility] [address] ding:[facility] Repository 05/19/2017/05/19/20 [id number] Ambulatory BBuilding:OB [facility] 17 URoom: Health 0211Bed: A [facility] Repository 05/11/2017/05/11/20 [id number] Emergency BBuilding:ER [facility] 17 O [facility] Repository 05/08/2017/05/08/20 [id number] Emergency [facility] ding:ED Repository 05/04/2017/05/04/20 [id number] Ambulatory J[facility] 17 [facility] ding:[facility] Repository 04/10/2017/04/10/20 [id number] Emergency BBuilding:ER [facility] 17 O [facility] Repository 03/30/2017/03/30/20 [id number] Ambulatory BBuilding:OB [facility] 17 URoom: Health 0211Bed: A [facility] Repository 03/22/2017/03/22/20 [id number] Emergency BBuilding:ER [facility] 17 O [facility] Repository 03/20/2017/03/20/20 [id number] Emergency Jose M[address] ding:ED Repository 03/20/2017/03/20/20 [id number] Ambulatory [address] ding:WPOUTRo Repository om: [id number] PAYERS PAYERS ENCOUNTER GUARANTOR PAYER SUBSCRIBER SOURCE 03/18/2018 [facility] Jose M BETTE Insurance:[facility] Number: TESSANNEDOB: [facility] CTAPT [id number] Repository [place], [place] Date:2018-03-18P O 57908Hlu: [phone]) GIT 7994ATTN: CLAIMS [phone] () [place] [address]DR: 03/18/2018 Secondary NOT GIVENUNK [place] Insurance:SELF PAY [facility] Number: Effective Repository Date:2018-03-18 02/02/2018 [facility]NE2330 olicy Number: TESSANNEDOB: [facility] CTAPT [id number] Repository [place] Date:2018-02-02P O 41316Jpi: (393) [address]ATTN: CLAIMS [phone] () [place] [address]IX: 02/02/2018 Secondary NOT GIVENUNK Jose M Insurance:SELF PAY [facility] Number: Effective Repository Date:2018-02-02 01/30/2018 KANCHAN B N Primary MENG B [facility] TESSANNEDOB: Insurance:[place] PANTELISDOB: [facility] 061Policy Number: [id number] [address] [id number] [facility] [place] Date:2018-01-24 - [id number] HOS[facility] [address]~KANCHANBNDavid 5950-94-43Siqv [place] [address]Wrv: [email or web address]. Name:APO Box OMTel: [phone], [place] () () [address]LC: (WP) [phone] 01/30/2018 Secondary KANCHAN B N [facility] Insurance:CARESOURCE TESSANNEDOB: Foundation MEDICAIDPolicy [id number] Repository Number: [address] [id number] [place] Date:2018-01-24 [address]64[address]Fmi: [phone] [phone] [phone] ()Tel: Name:[address] [place] [address] () [address]LN: 01/23/2018 KANCHAN B N Primary [facility] TESSANNEDOB: Insurance:[place] PANTELISDOB: [facility] [id number] Number: [id number] Repository [address] [id number] [facility] [place] Date:2018-01-23 - [id number] CLIN[facility] [address]~ADRYAN 4395-51-04Nlmy [place] [address]Xfn: [email or web address] Name:TUAN Velasco OMTel: [phone], [place] (HP) (HP) [address]CJ: (WP) [phone] 01/23/2018 Secondary KANCHAN [facility] Insurance:CARESOHELEN DEVOS CHILDREN'S HOSPITALEDOB: Foundation MEDICAIDPolicy [id number] Repository Number: [facility] [address] [id number] [place] Date:2018-01-23 01865Tta: [phone] [phone] (WP) Name:XPO Krista [address] [place] [address]CO: 01/13/2018 [facility] [place] BETTE Insurance:[facility]OURCEnloe Medical CenterNNE2330 [facility] Number: TESSANNEDOB: [facility] CTAPT [id number] Repository [place] Date:2018-01-13P O 62207Acs: [address]ATTN: CLAIMS [phone] () [place] [address]XN: 01/13/2018 Secondary NOT GIVENUNK Jose M Insurance:SELF PAY [facility] Number: Effective Repository Date:2018-01-13 09/01/2017 [facility] [place] BETTE Insurance:[facility]OURCEnloe Medical CenterNNE2330 olic Number: TESSANNEDOB: [facility] CTAPT [id number] Repository [place] Date:2017-09-01P O 97501Wtl: [address]ATTN: CLAIMS [phone] () [place] [address]ZO: 09/01/2017 Secondary NOT GIVENUNK [place] Insurance:SELF PAY [facility] Number: Effective Repository Date:2017-09-01 07/23/2017 KANCHAN B N Primary [facility] HospitalED[facility]: Insurance:[place] PANTELISDOB: [facility] 061Policy Number: [id number] [id number] [facility], [place] Date:2017-05-29 - [id number] [place] [address], [address]~ASHLEYBN 9499-00-60Tiom [place] [address]Lxg: [email or web address] Name:[id number], [place] (HP)Tel: [phone]: (WP) [phone] 07/23/2017 Secondary [facility] Insurance:CARESOOSS HEALTHOB: [facility] MEDICAIDPolicy [id number] Repository Number: [address] [id number] [place] Date:2017-07-23 86337Zrx: 000 [id number] [phone] (HP)Tel: Name:[address], [place] (WP) [address]VS: 07/21/2017 KANCHAN B N [facility] HospitalNNEDOB: Insurance:CIGNA of PANTELISDOB: [facility] [place]Policy Number: [id number] [id number] [facility], [place] Date:2017-07-21 - [id number] [place]ID[place], [address]~BEAVERBN 8724-24-35Wcmo [place] [address]Dmp: [email or web address] Name:PINKED EDGE SEWING MACHINE OPERATOR Box OMTel: [phone], [place] (HP) [address]WP: (WP) (HP) [phone] (WP) 07/21/2017 Secondary [facility] Health Insurance:CARESONORMAN REGIONAL HEALTHPLE[facility] – NORMANE TESSAEDOB: Foundation MEDICAIDPolicy [id number] Repository Number: CT [address]T [id number] [facility], [place] Date:2017-07-21 576[address]Znn: [phone] [phone] (HP)Tel: Name:[address] [place] [address] (WP) [address]VV: 07/20/2017 [facility] N Primary [facility] SystemSANNEDOB: Insurance:CIGNA of PANTELISDOB: [facility] [place]Policy Number: [id number] Rep[address] [id number] [facility], [place] Date:2017-07-20 - [id number] [place] [address], [address]~[facility] [id number] [place] [address]Gtn: [email or web address] Name:PINKED EDGE SEWING MACHINE OPERATOR Box OMTel: [phone], [place] () [address]WP: (WP) (HP) [phone] () 07/20/2017 Secondary [facility] Insurance:[facility]ET[facility] TESHOLY CROSS HOSPITALEDOB: Foundation MEDICAIDPolicy [id number] Repository Number: CT [address]T [id number] [facility], [place] Date:2017-07-2071840Tgg: (349) [phone] [phone] (HP)Tel: Name:[address], [place] (WP) [address]YM: 07/19/2017 KANCHAN B N [facility]cyEDOB: Insurance:CIGNA of PANTELISDOB: [facility] [place]Policy Number: [id number] [address] [id number] [facility], [place] Date:2017-07-12 - [id number] [facility]ICAL [facility], [address]~[facility] 8190-46-90Rykm [place] [address]Goh: [email or web address] Name:PINKED EDGE SEWING MACHINE OPERATOR Box OMTel: [phone], [place] (HP) [address]WP: (WP) (HP) [phone] (WP) 07/19/2017 Secondary KANCHAN B N [facility] Insurance:CARESONORMAN REGION[facility] HEALTHPLEX – NORMANE TESSANNEDOB: Foundation MEDICAIDPolmitchell county regional [facility] [id number] Repository Number: [address] [id number] [place] Date:2017-07-12 [address]Yxj: [phone] [phone] ()Tel: Name:[address], [place] (WP) [address]HO: 07/09/2017 [facility] MENG PANTELISDOB: Jose M [id number] Insurance:CIGNAPolicy [id number] [facility] [address]: [place], [place] [id number] Repository [address]Osc: 330) Date:6367-19-54SY [phone] () 8244[address]DXNGLNVDTMO, [place] [address]DO: 07/09/2017 Secondary NOT GIVENUNK Jose M Insurance:SELF PAY [facility] Number: Effective Repository Date:2017-06-29 06/26/2017 [place] B N Primary [facility] SystemSANNEDOB: Insurance:CIGNA of PANTELISDOB: [facility] [place]Policy Number: [id number] [address] [id number] [facility] Date:2017-06-26 - [id number] [place], [address]~[facility] 5914-46-51Cmww [place] [address]Joh: [email or web address] Name:PINKED EDGE SEWING MACHINE OPERATOR Box OMTel: [phone], [place] (HP) [address]JO: (WP) (HP) [phone] (WP) 06/25/2017 KANCHAN B N Primary MENG [facility] TESSANNEDOB: Insurance:CIGNA of PANTELISDOB: [facility] OHPolicy Number: [id number] [address] [id number] [place], [place] Date:2017-06-25 - [place] [address]~[facility] 8655-05-63Gtrr [place] [address]Ppv: [email or web address] Name:PINKED EDGE SEWING MACHINE OPERATOR Box OMTel: [phone], [place] (HP) [address]WP: (WP) (HP) [phone] (WP) 06/13/2017 [facility] N [facility] TESSANNEDOB: Insurance:CIGNA of PANTELISDOB: [facility] [place]Policy Number: [id number] Repository [address] [id number] [facility] [place] Date:2017-06-13 - [address], [address]~[facility] [phone] [place] [address]Pyh: [email or web address] Name:PINKED EDGE SEWING MACHINE OPERATOR Box OMTel: [phone], [place] (HP) [address]HD: (WP) (HP) [phone] (WP) 06/05/2017 [facility] MENG PANTELISDOB: [place] [id number] Insurance:CIGNAPolicy [id number] [facility] [address] CtA[address] Number: [place], [place] [id number] Repository [address]Gvh: (330) Date:9961-98-90KT [phone] (HP) 176383QKDKFRIWSNR, [place] [address]FS: 06/05/2017 Secondary NOT GIVENUNK Jose M Insurance:SELF PAY [facility] Number: Effective Repository Date:2017-06-02 05/19/2017 KANCHAN B N Primary [facility] SystemSANNEDOB: Insurance:CIGNA of PANTELISDOB: [facility] OHPolicy Number: [id number] [id number], [place] Date:2017-05-19 - [id number] [place] [address]~ASHLEYBNT 1202-76-29Pcok [place] [address]Cmk: [email or web address] Name:PINKED EDGE SEWING MACHINE OPERATOR Box OMTel: [phone], [place] (HP) ) [phone] [address]WP: (WP) (HP) [phone] (WP) 05/19/2017 KANCHAN Rivas N Primary [facility] SystemsNNEDOB: Insurance:CIGNA of PANTELISDOB: [facility] [place]Policy Number: [id number] [id number] [facility] [place] Date:2017-05-19 - [id number] RIDGE, [address]~ASHLEYBNT 4724-70-21Syrz [place] [address]Anq: [email or web address] Name:PINKED EDGE SEWING MACHINE OPERATOR Box OMTel: [phone], [place] (HP) ) [phone] [address]WP: (WP) (HP) [phone] (WP) 05/11/2017 KANCHAN Rivas N Primary [facility]ENG B [facility] CenterSANNEDOB: Insurance:CIGNA of PANTELISDOB: [facility] [place]Policy Number: [id number] Repository [address] [id number] [facility] Date:2017-05-11 - [id number] [place]ID[place], [address]~BEAVERBN 0106-32-37Styg [place] [address]Uoc: [email or web address] Name:PINKED EDGE SEWING MACHINE OPERATOR Box OMTel: [phone], [place] (HP) [address]WP: (WP) (HP) [phone] (WP) 05/08/2017 Kanchan Primary MENG PANTELISDOB: Jose M [id number] Insurance:CIGNAPolicy [id number] Community [address]: [place], [place] [id number] Repository [address]Wdr: (330) Date:6947-69-01NH [phone] () 632813QJHPIWZRZWU, [place] [address]BK: 05/08/2017 Secondary NOT GIVENUNK [place] Insurance:SELF PAY [facility] Number: Effective Repository Date:2017-05-08 05/04/2017 KANCHAN Rivas N Primary MENG [facility]: Insurance:CIGNA of PANTELISDOB: [facility] OHPolicy Number: [id number] [address] [id number] [facility], [place] Date:2017-05-04 - IFD9JSRJCCREAM RIDGE, [address]~[facility] 0282-06-79Jwog [place] [address]Rne: [email or web address] Name:PINKED EDGE SEWING MACHINE OPERATOR Box OMTel: [phone], [place] (HP) [address]JO: (WP) (HP) [phone] (WP) 04/10/2017 KANCHAN B N Primary [facility] SystemSANNEDOB: Insurance:CIGNA of PANTELISDOB: [facility] OHPolicy Number: [id number] [id number] [facility] Date:2017-04-[address], [address]~[facility] 1274-27-62Pxjb [place] [address]Mot: [email or web address] Name:PINKED EDGE SEWING MACHINE OPERATOR Box OMTel: [phone], [place] (HP) [address]WP: (WP) (HP) [phone] (WP) 03/30/2017 KANCHAN Mary Primary [facility] SystemSANNEDOB: Insurance:CIGNA of PANTELISDOB: [facility] OHPolicy Number: [id number] [address] [id number] [facility] Date:2017-03-[address], [address]~[facility] 8214-40-98Yzkb [place] [address]Lpb: [email or web address] Name:PINKED EDGE SEWING MACHINE OPERATOR Box OMTel: [phone], [place] (HP) [address]WP: (WP) (HP) [phone] (WP) 03/22/2017 KANCHAN B N Primary [facility] SystemSANNEDOB: Insurance:CIGNA of PANTELISDOB: [facility] OHPolicy Number: [id number] Repository [address] [id number] [facility] Date:2017-03-[address] [place], [address]~KANCHANBNT 5979-84-41Wfwg [place] [address]Vnr: [email or web address] Name:PINKED EDGE SEWING MACHINE OPERATOR Box OMTel: [phone] [place] (HP) [address]WP: (WP) (HP) [phone] (WP) 03/20/2017 [facility] [place] [id number] Insurance:SELF PAY [facility]ENTERQUETAUsmanFirsthealth [address] [place] Number: Effective Repository [address]Cwg: 330) Date: [phone] (HP) 03/20/2017 [facility] MENG PANTLESLIESDOB: Jose M [id number] Insurance:[facility]IGNAPolmitchell county regional [facility] center [id number] CTAPT Number: [place], [place] [id number] Repository [address]Ucx: (330) Date:2627-26-17SG [phone] (HP) [phone], [place] [address]TZ:
== END 2018-03-18 09:28 | disposition home or self-care (01) ==
LOC: ED 09:25
PROVIDERS: Emergency Provider Emergency Medicine
DX: K08.89 Other specified disorders of teeth and supporting structures (principal); K02.9 Dental caries, unspecified; R05 Cough
CPT/HCPCS: 99283

== ENCOUNTER → 2018-05-03 20:17 | Outpatient (CLI) | payer OTHER, MEDICAID, SELFPAY | PROVIDERS: Family Provider Internal Medicine; PCP Internal Medicine; Visit Provider Internal Medicine | DX: G47.33 Obstructive sleep apnea (adult) (pediatric) (principal); G47.00 Insomnia, unspecified | CPT/HCPCS: 95810 ==

== ENCOUNTER 2018-05-24 13:24 | Emergency (ER) | payer BC, MEDICAID, SELFPAY ==
[2018-05-24 13:25] VITALS: BP 130/66; PULSE 97; RESP 16; TEMP 36.9; O2SAT 97; BMI 41.5
[2018-05-24 14:13] VITALS: PULSE 83; RESP 16; TEMP 36.9; O2SAT 99
[2018-05-24] MEDS: Ondansetron ODT 4 MG Tablet 8 MG PO (14:28)
[2018-05-24] MEDS: Loperamide 2 MG Capsule 4 MG PO (14:37)
--- NOTE | 2018-05-24 15:34 | ED.DCSUM_ITS ---
- ER Visit Summary Date of Service: 05/24/18 Chief Complaint: Nausea, vomiting, and diarrhea History of Present Illness: The patient is a 27 F with nausea, vomiting, and diarrhea for 13 hours. Patient had some fecal incontinence but otherwise no other associated symptoms. No bleeding. No abdominal pain. No urinary symptoms. Physical Examination: Afebrile and vital signs unremarkable. Patient appears nontoxic and in no acute distress. Mucous membranes are moist. Heart regular rate and rhythm. Lungs clear. Abdomen soft and nontender. No guarding or rebound. Skin appears normal. Test Results: None performed Emergency Department Course and Treatment: Patient treated with Zofran and Imodium. No indication at this time based on her age, vitals, exam, and history for imaging or other diagnostic testing. On reevaluation, no further nausea, vomiting, or diarrhea. I believe she is appropriate for outpatient treatment. Will prescribe the same. Follow-up with primary care. Return for any new or worsening issues. Treatment Plan: Above Disposition: Discharge Impression: 1. Nausea, vomiting, and diarrhea This note was generated with Viewglassation software. It may contain incorrect words, spelling, and punctuation that were not noted in review of the chart prior to signing ED Disposition - Plan for ED Patient: Chief Complaint: Nausea/Vomiting/Diarrhea Referrals: Rosa Jack MD [Primary Care Provider] -
--- NOTE | 2018-05-24 15:34 | ED.DEP ---
ED Disposition - Plan for ED Patient: Chief Complaint: Nausea/Vomiting/Diarrhea Instructions: ED Vomiting Diarrhea Nonspecific Ad Prescriptions: Loperamide [Imodium] 2 mg PO Q4H PRN PRN #20 cap PRN Reason: Diarrhea Ondansetron [Zofran Odt] 4 mg PO Q8H PRN PRN #10 tab PRN Reason: Nausea Referrals: Rosa Jack MD [Primary Care Provider] -
[2018-05-24 15:58] VITALS: BP 97/40
== END 2018-05-24 15:59 | disposition home or self-care (01) ==
PROVIDERS: Emergency Provider Emergency Medicine; Family Provider Internal Medicine; PCP Internal Medicine
DX: R11.2 Nausea with vomiting, unspecified (principal); R19.7 Diarrhea, unspecified; R50.9 Fever, unspecified
CPT/HCPCS: 99282

== ENCOUNTER 2018-11-12 16:50 | Outpatient (CLI) | payer MEDICAID, SELFPAY ==
[2018-11-12 17:21] VITALS: BMI 40.6
--- NOTE | 2018-11-13 07:49 | OB.TRI.NOTE ---
History of Present Illness Date of Service: 11/12/18 Was patient seen by the physician?: No Reason For Visit: R/O LABOR Date of Service: 11/12/18 Final KEVIN: 02/20/19 Gestational age: 25 Weeks and 6 Days Allergies doxylamine [From Diclegis] Adverse Reaction (Mild, Verified 11/12/18 17:23) Other dizziness pyridoxine [From Diclegis] Adverse Reaction (Mild, Verified 11/12/18 17:23) Other dizziness NST - FHR Rate Baby A Baseline: 145 Variability:: Moderate Accelerations:: 15 x 15 Decelerations:: None NST Reactive:: Yes, Appropriate for gestational age FHR Category:: Category I Uterine Activity:: none Impression/Plan 28yo @ 25.5 wks- false labor, N/V in 1) bland diet/ PO fluids 2) f/u with OB this week ( care elsewhere) 3) NST reactive 4) no vaginal bleeding on L&D- no signs of labor - DC Home
== END 2018-11-12 18:40 | disposition home or self-care (01) ==
LOC: WPOUT 17:08 → WP 17:09
PROVIDERS: Family Provider Internal Medicine; PCP Internal Medicine; Referring Provider Obstetrics & Gynecology; Visit Provider Obstetrics & Gynecology
DX: O47.02 False labor before 37 completed weeks of gestation, second trimester (principal); Z3A.25 25 weeks gestation of pregnancy
CPT/HCPCS: 59025; 59050; 99218; G0378

== ENCOUNTER 2019-02-24 11:27 | Emergency (ER) | payer MEDICAID, SELFPAY ==
[2019-02-24 11:27] VITALS: BP 127/108; PULSE 76; RESP 17; TEMP 36.8; O2SAT 97; BMI 37.6; BMI 41.5
--- NOTE | 2019-02-24 11:48 | US_ITS ---
STUDY: ULTRASOUND OF THE FEMALE PELVIS - COMPLETE REASON FOR EXAM: Female, 28 years old. Pelvic pain LMP: Unknown. TECHNIQUE: Transvaginal TECHNICAL QUALITY: Adequate. COMPARISON: None. FINDINGS: The uterus is anteverted and is in a midline position. The uterus measures 14.1 x 9.7 x 0.0 cm. Normal uterine cervix. The endometrium measures 18 mm in thickness, and is hyperechoic. There is no demonstrated endometrial mass. There is no demonstrated myometrial mass. I.U.D. - The patient does not have an I.U.D. The right ovary is visualized. The right ovary measures 2.2 x 2.1 x 1.5 cm. There is no right ovarian cyst or ovarian mass. There is no visualized right adnexal mass or complex lesion. There is normal arterial and normal venous vascularity. The left ovary is visualized. The left ovary measures 2.0 x 1.8 x 1.0 cm. There is no left ovarian cyst or ovarian mass. There is no visualized left adnexal mass or complex lesion. There is normal arterial and normal venous vascularity. There is no fluid in the cul-de-sac. US/Transvaginal Non- IMPRESSION: Normal female pelvis. Electronically Signed: Doyle Richey MD at 14:24 EDT , Service support ,
[2019-02-24 12:13] LABS: Absolute Lymphocyte Count 2.31 X10^3/uL (0.83-4.51); Absolute Neutrophil Count 6.1 X10^3/uL (2.0-7.7); Basophil# 0.07 X10^3/uL; Basophil% 0.7 % (0-1); Eosinophil# 0.25 X10^3/uL; Eosinophils% 2.7 % (0-5); Hematocrit 39.6 % (37-47); Hemoglobin 12.5 g/dL (12.0-15.0); Lymphocyte # 2.31 X10^3/ul (4.0); Lymphocyte % 24.6 % (19-41); Mean Corp Hgb Conc 31.6 g/dL (32-36); Mean Corpuscular Hgb 25.2 pg (27.0-32.0); Mean Corpuscular Volume 79.8 fL (81-99); Mean Platelet Vol. 11.3 fl (6.2-12.0); Monocyte# 0.61 X10^3/uL; Monocyte% 6.5 % (0-10); NRBC Flagged by Analyzer 0 % (0-5); Neutrophil # 6.12 X10^3/uL (2.7-7.7); Neutrophil % 65.1 % (47-70); Platelet Count 237 K/mm3 (150-450); RBC Distribution Width CV 15.9 % (11.6-14.6); Red Blood Count 4.96 M/mm3 (4.2-5.4); White Blood Count 9.4 K/mm3 (4.4-11.0)
--- NOTE | 2019-02-24 12:24 | ED.DCSUM_ITS ---
- ER Visit Summary Date of Service: 02/24/19 Chief Complaint: Pelvic pain History of Present Illness: The patient is a 28 F who is post vaginal delivery by 6 days. She states delivery was not complicated. She states that her bleeding has been improving. This morning she passed a larger than normal clot which she states is firmer than normal. After that she developed pain in the lower pelvis and in the low back. She states after passing the clot her bleeding has not changed. She denies any fevers. No nausea vomiting. She is having normal bowel movements. No urinary symptoms. G2, P2. Her TOW MOTOR OPERATOR is Dr. Hutton at [facility]. She did not contact them this morning but came right to this hospital. Physical Examination: Afebrile vital signs are stable line Gen: Well-nourished well-developed Head: Normocephalic atraumatic Eyes: Perrl EOMI ENT: TMs clear no rhinorrhea moist mucous membranes Neck: Supple no lymphadenopathy no JVD nontender CVS: Regular rate rhythm no murmurs normal S1-S2 Respiratory: No distress clear to auscultation bilaterally chest nontender Abdomen: Soft nontender nondistended normal bowel sounds no masses Back: Nontender Extremity: Nontender no edema Skin: Normal color no rash Neuro: alert orientated ?3 CN II-XII intact normal strength sensation Psych: Normal affect normal mood Test Results: CBC is normal. Pelvic ultrasound was obtained to rule out pain products of conception. This was negative. Emergency Department Course and Treatment: I examined the clot. Does not appear to be tissue. Ultrasound is negative. She has not required any medication and is comfortable. She will be discharged home to follow-up with TOW MOTOR OPERATOR Impression: 1. Pelvic pain 2. bleeding This note was generated with SvitStyleation software. It may contain incorrect words, spelling, and punctuation that were not noted in review of the chart prior to signing ED Disposition - Plan for ED Patient: Disposition: Home or Assisted Living Instructions: After a Vaginal Additional Instructions: Follow-up with your TOW MOTOR OPERATOR as scheduled. If any further problems please contact them or return here.
[2019-02-24 14:09] VITALS: BP 127/76; PULSE 75; RESP 16; O2SAT 99
== END 2019-02-24 15:23 | disposition home or self-care (01) ==
PROVIDERS: Emergency Provider Emergency Medicine; Family Provider Internal Medicine; PCP Internal Medicine
DX: O72.1 Other immediate postpartum hemorrhage (principal); R10.2 Pelvic and perineal pain
CPT/HCPCS: 76830; 85025; 99284; A4216

== ENCOUNTER 2019-03-06 03:23 | Emergency (ER) | payer MEDICAID, SELFPAY ==
[2019-02-24 11:27] VITALS: BMI 37.6
--- NOTE | 2019-03-06 | CT_ITS ---
STUDY: CT ABDOMEN AND PELVIS WITH CONTRAST REASON FOR EXAM: Female, 28 years old. Lower abdominal pain and back pain, nausea RADIATION DOSAGE (If Supplied By Facility): CTDIvol = ( 18.55 ) mGy, DLP = ( 1261.24 ) mGycm TECHNIQUE: Transaxial images were obtained from the dome of the diaphragm to the symphysis pubis without oral contrast. Oral and amp; IV Gastrografin and amp; 100mL Isovue-300 100ML was administered. Sagittal and coronal images were reconstructed. Individualized dose optimization techniques were used for this CT. COMPARISON: Pelvic ultrasound 02/24/2019. FINDINGS: There are mild bilateral lower lobe groundglass pulmonary opacities. The visualized portions of the heart are within normal limits. Normal liver. Normal gallbladder and extrahepatic biliary system. Normal spleen. Normal pancreas. There is small air bubble likely in the right atrium most from prior intravenous injection. Normal bilateral adrenal glands. Normal right kidney. Normal left kidney. Normal visualized stomach. Normal small intestine. Normal colon. The appendix is visualized and appears normal. Normal abdominal aorta. Normal inferior vena cava. Normal retroperitoneum. Normal urinary bladder. There is mild enlargement of the uterus which is anteverted. Normal abdominal wall. There is mild diastases of the pubic symphysis with small amount of fluid within the pubic symphysis. There is mild bilateral sclerosis of the sacroiliac joints. There is mild lumbar spine dextroscoliosis. 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
[2019-03-06 03:24] VITALS: BP 128/69; PULSE 73; RESP 18; TEMP 36.8; O2SAT 97; BMI 38.9
--- NOTE | 2019-03-06 03:41 | ED.VIS.GEN ---
History of Present Illness Chief Complaint: Abd Pain Narrative: Patient is a 28-year-old female who presents with abdominal pain. She complains of 4 hours of cramping lower abdominal pain with radiation through to the back. She denies any urinary symptoms such as dysuria, frequency, urgency. No diarrhea. She reports 4 episodes of nonbloody nonbilious emesis. No fever. She is 2 weeks . She was seen 10 days ago for sharp suprapubic pain and she had passed a clot. She had a normal pelvic ultrasound at that time. Past Medical History - Allergies and Home Meds Allergies/Adverse Reactions: Allergies doxylamine [From Diclegis] Adverse Reaction (Mild, Verified 03/06/19 03:28) SYNCOPE/THROAT TIGHTNESS dizziness pyridoxine [From Diclegis] Adverse Reaction (Mild, Verified 03/06/19 03:28) SYNCOPE/TIGHT THROAT dizziness Primary Care Physician: Shiva Cohen DO [Primary Care Provider] - Past Medical History: None Surgical History: noncontributory Smoking Status: Never smoker Review of Systems All systems negative except as indicated General: Denies: Fever Cardiovascular: Denies: Chest pain Respiratory: Denies: Dyspnea Gastrointestinal: Reports: Abdominal pain, Nausea, Vomiting. Denies: Diarrhea Genitourinary: Denies: Dysuria, Frequency Physical Exam Vital Signs/Narrative: Vital Signs Temp Pulse Resp BP Pulse Ox 03/06/19 03:24 98.2 F 73 18 128/69 H 97 General: Well nourished Head: Normocephalic Eyes: EOMI ENT: Moist mucous membranes Neck: Supple Cardiovascular: Regular rate, Regular rhythm Respiratory: No distress, CTA bilaterally Abdomen: Soft, Tender - Lower abdominal tenderness without guarding without rebound no pain specific to McBurney's point Skin: Normal color Neurological: Alert Psychological: Normal affect Diagnostic/Tx/Re-eval Impressions Abdomen/Pelvis CT 03/06/19 00:00 IMPRESSION: Mildly enlarged anteverted uterus likely , this could be further evaluated with pelvic and transvaginal ultrasound Mild bilateral lower lobe groundglass pulmonary opacities likely hypoventilatory changes, cannot exclude infectious inflammatory infiltrates pneumonia Diastases of the pubic symphysis with the small amount of fluid within the pubic symphysis which is 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 Mild lumbar spine dextroscoliosis Electronically Signed: Scotty Logan, at 6:20 EDT Tel , Service support , 03/06/19 Abdomen/Pelvis WITH Contrast [CT] Stat Laboratory Results 03/06/19 03/06/19 03/06/19 03:40 03:40 05:00 WBC 8.5 RBC 5.15 Hgb 12.9 Hct 41.8 MCV 81.2 MCH 25.0 L MCHC 30.9 L RDW Std Deviation 46.0 H RDW Coeff of Palomo 15.6 H Plt Count 220 MPV 11.7 Immature Gran % (Auto) 0.200 Neut % (Auto) 63.4 Lymph % (Auto) 27.3 [place] % (Auto) 5.1 Eos % (Auto) 2.6 Baso % (Auto) 1.4 H Absolute Neuts (auto) 5.4 Absolute Lymphs (auto) 2.32 Nucleated RBC % 0 Sodium 143 Potassium 4.1 Chloride 109 H Carbon Dioxide 25.0 Anion Gap 9 BUN 17 Creatinine 1.04 H Estim Creat Clear Calc 61.86 Est GFR (MDRD) Af Amer 82 Est GFR (MDRD) Non-Af 68 BUN/Creatinine Ratio 16.3 Glucose 73 L Calcium 8.8 Urine Color Yellow Urine Clarity Clear Urine pH 6.5 Ur Specific [place] 1.015 Urine Protein Negative Urine Glucose (UA) Normal Urine Ketones Negative Urine Occult Blood 25 H Urine Nitrite Negative Urine Bilirubin Negative Urine Urobilinogen Normal Ur Leukocyte Esterase 500 H Urine RBC 0 SEEN Urine WBC 25-50 SEEN Ur Squamous Epith Cells 0-5 SEEN Urine Bacteria 0 SEEN Urine Mucus 0 SEEN - Medical Decision Making Although patient is 2 weeks she recently had a normal pelvic ultrasound and does not have vaginal bleeding so I did not feel repeat ultrasound imaging necessary. However given lower abdominal pain with vomiting appendicitis is on the differential also a CT has been ordered. Patient was symptomatically treated with IV fluids, Toradol, Zofran. CT of the abdomen and pelvis as above shows changes. Her labs are unremarkable except urinalysis which is consistent with cystitis. Patient will be treated with Bactrim. She understands to return for new or worsening symptoms. She was advised to follow-up with her [facility] TECHNICIAN. All questions answered bedside and the patient was discharged. ED Disposition - Plan for ED Patient: Disposition: Home or Assisted Living Diagnosis: UTI (urinary tract infection) Instructions: Understanding Urinary Tract Infections (UTIs) Prescriptions: Smz/Tmp Ds [Bactrim Ds] 1 tab PO BID #14 tab Prescription Printed Referrals: Shiva Cohen DO [Primary Care Provider] -
[2019-03-06 03:47] LABS: Absolute Lymphocyte Count 2.32 X10^3/uL (0.83-4.51); Absolute Neutrophil Count 5.4 X10^3/uL (2.0-7.7); Basophil# 0.12 X10^3/uL; Basophil% 1.4 % (0-1); Eosinophil# 0.22 X10^3/uL; Eosinophils% 2.6 % (0-5); Hematocrit 41.8 % (37-47); Hemoglobin 12.9 g/dL (12.0-15.0); Lymphocyte # 2.32 X10^3/ul (4.0); Lymphocyte % 27.3 % (19-41); Mean Corp Hgb Conc 30.9 g/dL (32-36); Mean Corpuscular Volume 81.2 fL (81-99); Mean Platelet Vol. 11.7 fl (6.2-12.0); Monocyte# 0.43 X10^3/uL; Monocyte% 5.1 % (0-10); NRBC Flagged by Analyzer 0 % (0-5); Neutrophil % 63.4 % (47-70); Platelet Count 220 K/mm3 (150-450); RBC Distribution Width CV 15.6 % (11.6-14.6); Red Blood Count 5.15 M/mm3 (4.2-5.4); White Blood Count 8.5 K/mm3 (4.4-11.0)
[2019-03-06] MEDS: 0.9% Normal Saline 1,000 ML 1000 ML IV (03:54)
[2019-03-06] MEDS: Ketorolac 30 MG/ML Syringe IV (03:54)
[2019-03-06] MEDS: Ondansetron 4 MG/2 ML Vial IV (03:54)
[2019-03-06 03:59] LABS: Anion Gap 9 (5-15); BUN 17 mg/dL (7-18); BUN/Creat Ratio 16.3 RATIO (10-20); Calcium,Total 8.8 mg/dL (8.5-10.1); Chloride 109 mmol/L (98-107); Creatinine, Serum 1.04 mg/dL (0.55-1.02); EST Glomerular Filtration Rate 68 mL/min (>60); Est Glom Filt Rate - Afr Amer 82 mL/min (>60); Estimated Creatinine Clearance 61.86 ml/min; Glucose 73 mg/dL (74-106); Potassium 4.1 mmol/L (3.5-5.1); Sodium Level 143 mmol/L (136-145)
[2019-03-06 05:06] LABS: Bacteria 0 SEEN /hpf (None Seen); Mucous, Urine 0 SEEN /hpf (<or=2+); Red Blood Cells-Urine 0 SEEN /hpf (0-5)
[2019-03-06 05:07] LABS: Color, Urine Yellow (Yellow); Glucose, Dipstick Normal (Normal); Ketone-Dipstick Negative (Negative); Leukocyte Esterase-Dipstick 500 /ul (Negative); Nitrite-Dipstick Negative (Negative); Occult Blood-Urine 25 /ul (Negative); Protein-Dipstick Negative (Negative); Specific Gravity, Urine 1.015 (1.002-1.030); Urine Bilirubin Dipstick Negative (Negative); Urine Clarity Clear (Clear); Urine Urobilinogen Normal (Normal); Urine pH 6.5 (5.0 - 8.0)
[2019-03-06 05:19] LABS: Squamous Epithelial Cells - UA 0-5 SEEN /hpf (5-10); White Blood Cells 25-50 SEEN /hpf (0-5)
[2019-03-06 06:37] VITALS: BP 126/80; PULSE 67; RESP 18; O2SAT 98
== END 2019-03-06 06:37 | disposition home or self-care (01) ==
PROVIDERS: Emergency Provider Emergency Medicine; Family Provider Family Medicine; PCP Family Medicine
DX: O86.20 Urinary tract infection following delivery, unspecified (principal)
CPT/HCPCS: 74177; 80048; 81001; 85025; 96361; 96374; 96375; 99283; J7030; Q9967; A4216; J2405

== ENCOUNTER 2019-04-25 05:44 | Emergency (ER) | payer BC, MEDICAID, SELFPAY ==
[2019-04-25 05:45] VITALS: BP 134/83; PULSE 113; RESP 16; TEMP 37.2; O2SAT 96; BMI 37.6
--- NOTE | 2019-04-25 05:59 | EKG12_ITS ---
Test Reason : GENERAL ILLNESS Blood Pressure : / mmHG Vent. Rate : 086 BPM Atrial Rate : 086 BPM P-R Int : 120 ms QRS Dur : 082 ms QT Int : 356 ms P-R-T Axes : 056 029 014 degrees QTc Int : 426 ms Normal sinus rhythm Normal ECG Confirmed by QUEENIE BERG, BRENNA ([id number]), editorial writer EDDIE ARIAS ([id number]) on 04/29/2019 11:48:19 AM Referred By: ISATU Confirmed By:BRENNA JEROME MD
--- NOTE | 2019-04-25 06:00 | ED.VIS.GEN ---
History of Present Illness Chief Complaint: General Illness Detail of Chief Complaint: Nausea, vomiting, diarrhea, syncope Informant: Patient Onset: Days - Past 24 hours Current Severity: Mild Maximum Severity: Moderate Narrative: Patient presents with nausea, vomiting, and diarrhea for the past 24 hours. She states she is not able to keep anything down. She has had a couple episodes of syncope. She denies having palpitations or chest pain prior to her syncopal episodes. She states she will feel very cold and clammy, will feel a chow of cold air across her, and will wake up on the floor. She states she has had something similar happen in the past when she was ill. - Past Medical History (1) Cerebral palsy Status: Chronic (2) Anxiety Status: Chronic (3) Depression Status: Chronic Past Medical History - Allergies and Home Meds Allergies/Adverse Reactions: Allergies doxylamine [From Diclegis] Adverse Reaction (Mild, Verified 04/25/19 05:50) SYNCOPE/THROAT TIGHTNESS dizziness pyridoxine [From Diclegis] Adverse Reaction (Mild, Verified 04/25/19 05:50) SYNCOPE/TIGHT THROAT dizziness Primary Care Physician: Shiva Cohen DO [Primary Care Provider] - 1 Week Prior records reviewed: Yes Surgical History: noncontributory Lives: With Family Smoking Status: Never smoker Review of Systems General: Denies: Chills, Fever Eyes: Denies: Visual changes - bilaterally ENT: Denies: Bilateral ear pain, Sore throat Cardiovascular: Denies: Chest pain Respiratory: Denies: Dyspnea, Cough Gastrointestinal: Reports: Abdominal pain - Mild cramping, Nausea, Vomiting, Diarrhea Genitourinary: Denies: Dysuria Musculoskeletal: Denies: Extremity Pain Neurological: Reports: Weakness - Generalized weakness. Denies: Headache Hematologic: Denies: Easy bruising, Easy bleeding Allergy: Denies: Uticaria Physical Exam Vital Signs/Narrative: Vital Signs Temp Pulse Resp BP Pulse Ox 04/25/19 05:45 99.0 F 113 H 16 134/83 H 96 Inital Vital Signs reviewed: Yes General: Well nourished, Well developed Head: Normocephalic ENT: Dry mucous membranes Cardiovascular: Regular rate, Regular rhythm - Heart rate equal 92 at the time of my exam Respiratory: No distress, CTA bilaterally Abdomen: Soft, Nontender, Hypoactive bowel sounds Extremities: Nontender Skin: Normal color Neurological: Alert, Oriented x3 Psychological: Normal affect Diagnostic/Tx/Re-eval Laboratory Results 04/25/19 04/25/19 04/25/19 05:50 05:50 05:50 WBC 11.8 H RBC 6.06 H Hgb 15.3 H Hct 47.4 H MCV 78.2 L MCH 25.2 L MCHC 32.3 RDW Std Deviation 45.8 H RDW Coeff of Palomo 16.6 H Plt Count 240 MPV 11.4 Immature Gran % (Auto) 0.300 Neut % (Auto) 89.3 H Lymph % (Auto) 4.2 L [place] % (Auto) 5.2 Eos % (Auto) 0.6 Baso % (Auto) 0.4 Absolute Neuts (auto) 10.5 H Absolute Lymphs (auto) 0.49 L Nucleated RBC % 0 Sodium 140 Potassium 3.8 Chloride 109 H Carbon Dioxide 23.0 Anion Gap 8 BUN 24 H Creatinine 1.10 H Estim Creat Clear Calc 58.48 Est GFR (MDRD) Af Amer 77 Est GFR (MDRD) Non-Af 64 BUN/Creatinine Ratio 21.8 H Glucose 102 Calcium 9.4 Total Bilirubin 1.20 H Direct Bilirubin 0.21 AST 17 ALT 42 Alkaline Phosphatase 111 Total Protein 8.4 H Albumin 4.6 Globulin 3.8 Serum , Qual NEGATIVE Urine Color Urine Clarity Urine pH Ur Specific [place] Urine Protein Urine Glucose (UA) Urine Ketones Urine Occult Blood Urine Nitrite Urine Bilirubin Urine Urobilinogen Ur Leukocyte Esterase Urine RBC Urine WBC Ur Squamous Epith Cells Urine Bacteria Urine Mucus 04/25/19 06:50 WBC RBC Hgb Hct MCV MCH MCHC RDW Std Deviation RDW Coeff of Palomo Plt Count MPV Immature Gran % (Auto) Neut % (Auto) Lymph % (Auto) [place] % (Auto) Eos % (Auto) Baso % (Auto) Absolute Neuts (auto) Absolute Lymphs (auto) Nucleated RBC % Sodium Potassium Chloride Carbon Dioxide Anion Gap BUN Creatinine Estim Creat Clear Calc Est GFR (MDRD) Af Amer Est GFR (MDRD) Non-Af BUN/Creatinine Ratio Glucose Calcium Total Bilirubin Direct Bilirubin AST ALT Alkaline Phosphatase Total Protein Albumin Globulin Serum , Qual Urine Color Yellow Urine Clarity Sl. Cloudy Urine pH 5.0 Ur Specific [place] 1.025 Urine Protein 15 H Urine Glucose (UA) Normal Urine Ketones 15 H Urine Occult Blood 25 H Urine Nitrite Negative Urine Bilirubin Negative Urine Urobilinogen Normal Ur Leukocyte Esterase 500 H Urine RBC 0 SEEN Urine WBC 50-100 SEEN Ur Squamous Epith Cells 10-25 SEEN Urine Bacteria 0 SEEN Urine Mucus 0 SEEN - EKG Initial EKG Interpretation: Sinus Rhythm - Sinus 86 with no acute ischemia. - Medical Decision Making Patient was given Zofran and IV fluids. On repeat evaluation nausea is improved. She is able to tolerate ice chips without difficulty. Urine does show significant white cells. She will be covered with 3 days of antibiotics. If she spikes fever or has worsened vomiting and cannot keep antibiotics down she is to return. Patient voices understanding and agreement. ED Disposition - Plan for ED Patient: Disposition: Home or Assisted Living Diagnosis: Vomiting Instructions: Urinary Tract Infections in Women, VOMITING (6y-Adult) Prescriptions: Smz/Tmp Ds [Bactrim Ds] 1 tab PO BID #6 tab Prescription Printed Ondansetron [Zofran Odt] 4 mg PO Q8H PRN PRN #10 tab PRN Reason: Nausea Prescription Printed Referrals: Shiva Cohen DO [Primary Care Provider] - 1 Week
--- NOTE | 2019-04-25 06:03 | ED.RN ---
NO OLD EKGS IN MUSE
[2019-04-25 06:08] LABS: Absolute Lymphocyte Count 0.49 X10^3/uL (0.83-4.51); Absolute Neutrophil Count 10.5 X10^3/uL (2.0-7.7); Basophil# 0.05 X10^3/uL; Basophil% 0.4 % (0-1); Eosinophil# 0.07 X10^3/uL; Eosinophils% 0.6 % (0-5); Hematocrit 47.4 % (37-47); Hemoglobin 15.3 g/dL (12.0-15.0); Lymphocyte # 0.49 X10^3/ul (4.0); Lymphocyte % 4.2 % (19-41); Mean Corp Hgb Conc 32.3 g/dL (32-36); Mean Corpuscular Hgb 25.2 pg (27.0-32.0); Mean Corpuscular Volume 78.2 fL (81-99); Mean Platelet Vol. 11.4 fl (6.2-12.0); Monocyte# 0.61 X10^3/uL; Monocyte% 5.2 % (0-10); NRBC Flagged by Analyzer 0 % (0-5); Neutrophil # 10.51 X10^3/uL (2.7-7.7); Neutrophil % 89.3 % (47-70); POSITIVE DIFFERENTIAL YES; Platelet Count 240 K/mm3 (150-450); RBC Distribution Width CV 16.6 % (11.6-14.6); RBC Distribution Width SD 45.8 fl (35.1-43.9); Red Blood Count 6.06 M/mm3 (4.2-5.4); White Blood Count 11.8 K/mm3 (4.4-11.0)
[2019-04-25 06:14] LABS: Differential Indicated SCAN CRITERIA MET
[2019-04-25] MEDS: Ondansetron 4 MG/2 ML Vial IV (06:15)
[2019-04-25] MEDS: 0.9% Normal Saline 1,000 ML 1000 ML IV (06:15)
[2019-04-25 06:22] LABS: Internal QC Validated? YES +Cl - CLEAR BKGD; Pregnancy, Serum, hCG Quali. NEGATIVE Negative
[2019-04-25 06:29] LABS: AST(SGOT) 17 U/L (15-37); Alanine Aminotransfer ALT/SGPT 42 U/L (13-56); Albumin, Serum 4.6 g/dL (3.2-5.0); Alkaline Phosphatase 111 U/L (45-117); Anion Gap 8 (5-15); BUN 24 mg/dL (7-18); BUN/Creat Ratio 21.8 RATIO (10-20); Bilirubin, Direct 0.21 mg/dL (0.00-0.30); Calcium,Total 9.4 mg/dL (8.5-10.1); Chloride 109 mmol/L (98-107); EST Glomerular Filtration Rate 64 mL/min (>60); Est Glom Filt Rate - Afr Amer 77 mL/min (>60); Estimated Creatinine Clearance 58.48 ml/min; Globulin 3.8 g/dL (2.2-4.2); Glucose 102 mg/dL (74-106); Potassium 3.8 mmol/L (3.5-5.1); Protein, Total 8.4 g/dL (6.4-8.2); Sodium Level 140 mmol/L (136-145)
[2019-04-25 06:55] LABS: Bacteria 0 SEEN /hpf (None Seen); Mucous, Urine 0 SEEN /hpf (<or=2+); Red Blood Cells-Urine 0 SEEN /hpf (0-5)
[2019-04-25 07:00] LABS: Color, Urine Yellow (Yellow); Glucose, Dipstick Normal (Normal); Ketone-Dipstick 15 mg/dl (Negative); Leukocyte Esterase-Dipstick 500 /ul (Negative); Nitrite-Dipstick Negative (Negative); Occult Blood-Urine 25 /ul (Negative); Protein-Dipstick 15 mg/dl (Negative); Specific Gravity, Urine 1.025 (1.002-1.030); Urine Bilirubin Dipstick Negative (Negative); Urine Clarity Sl. Cloudy (Clear); Urine Urobilinogen Normal (Normal)
[2019-04-25 07:12] LABS: Squamous Epithelial Cells - UA 10-25 SEEN /hpf (5-10); White Blood Cells 50-100 SEEN /hpf (0-5)
[2019-04-25 07:31] VITALS: BP 133/77; PULSE 97; RESP 23; O2SAT 97
[2019-04-25] MEDS: Smz/Tmp Ds Tablet 1 TABLET PO (07:33)
[2019-04-25 07:35] LABS: Differential Comment SCANNED
== END 2019-04-25 07:37 | disposition home or self-care (01) ==
PROVIDERS: Emergency Provider Emergency Medicine; Family Provider Family Medicine; PCP Family Medicine
DX: R11.2 Nausea with vomiting, unspecified (principal); R19.7 Diarrhea, unspecified; R55 Syncope and collapse; R10.9 Unspecified abdominal pain; G80.9 Cerebral palsy, unspecified
CPT/HCPCS: 80048; 80076; 81001; 84703; 85025; 93005; 96361; 96374; 99285; J7030; A4216; J2405

== ENCOUNTER 2019-04-27 03:21 | Emergency (ER) | payer BC, MEDICAID, SELFPAY ==
[2019-04-27 03:24] VITALS: BP 121/68; PULSE 102; RESP 16; TEMP 38.8; O2SAT 95; BMI 37.8
--- NOTE | 2019-04-27 03:49 | ED.DCSUM_ITS ---
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 Negative for: Blood streaks, Coffee ground, Hematemesis Severity: Severe - Diarrhea/Melena/Hematochezia GI Symptom: Diarrhea. Negative for: Melena, Hematochezia Severity: Moderate Associated Symptoms: - - decreased UOP. Negative for: Dysuria, Frequency, Hematuria, Urgency Narrative: Seen here around 36 hours ago for similar symptoms except now she has a fever. She was diagnosed with a urinary tract infection in addition to vomiting diarrhea and abdominal cramping, she had no urinary symptoms and still does not. Basically all of her other symptoms of the same. She is able to keep the pills down but states she requires Zofran in order to keep down anything. It is helping. Tonight she has been having trouble keeping her temperatures controlled despite taking antipyretics, her last dose was 1-2 hours ago and was ibuprofen. She denies recent travel out of the area or country, suspicious food ingestion, recent camping or ground water ingestion, or contact with sick persons that she knows of with the symptoms or persons with C. difficile colitis. She has no history of C. difficile colitis. She is on antibiotics for 3 days for the abnormal urine, she has finished 3 out of the 6 doses. She has some low back discomfort but nonlateralizing. Additionally patient states she has a history of cerebral palsy and as per is standard when she gets a fever, she is having more trouble walking than usual since she has had the fever. - Past Medical History (1) Anxiety Status: Chronic (2) Cerebral palsy Status: Chronic (3) Depression Status: Chronic Past Medical History - Allergies and Home Meds Allergies/Adverse Reactions: Allergies doxylamine [From Diclegis] Adverse Reaction (Mild, Verified 04/27/19 03:22) SYNCOPE/THROAT TIGHTNESS dizziness pyridoxine [From Diclegis] Adverse Reaction (Mild, Verified 04/27/19 03:22) SYNCOPE/TIGHT THROAT dizziness Primary Care Physician: Brown,Shiva, DO [Primary Care Provider] - 3-5 Days if not improving Surgical History: noncontributory Lives: With Family Smoking Status: Never smoker Review of Systems General: Reports: Fever, Malaise. Denies: Chills, Sweats Eyes: Denies: Visual changes - bilaterally, Diplopia ENT: Denies: Rhinorrhea, Sore throat Cardiovascular: Denies: Chest pain, Palpitations Respiratory: Denies: Dyspnea, Cough, Dyspnea on exertion Gastrointestinal: Reports: Abdominal pain, Nausea, Vomiting, Diarrhea. Denies: Melena, Hematochezia Genitourinary: Denies: Dysuria, Hematuria, Frequency Musculoskeletal: Reports: Back pain. Denies: Neck pain, Swelling, Extremity Pain Skin: Denies: Rash, Wounds Neurological: Denies: Headache, Weakness, Numbness Physical Exam Vital Signs/Narrative: Vital Signs Temp Pulse Resp BP Pulse Ox 04/27/19 03:24 101.8 F H 102 H 16 121/68 H 95 Inital Vital Signs reviewed: Yes General: Well nourished, Well developed, No Acute Distress Head: Normocephalic, Atraumatic Eyes: Perrl, EOMI ENT: Moist mucous membranes, No rhinorrhea Neck: Supple, Nontender Cardiovascular: Regular rate, Regular rhythm, No murmurs, Tachycardia - Mild Respiratory: No distress, CTA bilaterally, Chest nontender Abdomen: Soft, Nontender, Nondistended, Normal bowel sounds, No masses Back: Nontender, Normal Inspection. Negative for: CVA tenderness Extremities: Nontender, No edema Skin: Normal color, No rash, No Trauma Neurological: Alert, Oriented x3, Cranial nerves II-XII grossly intact, Normal Strength, Normal Sensation Psychological: Normal affect, Normal Mood Diagnostic/Tx/Re-eval Laboratory Results 04/27/19 04/27/19 03:55 04:08 Sodium 139 Potassium 3.3 L Chloride 109 H Carbon Dioxide 22.0 Anion Gap 8 BUN 11 Creatinine 1.13 H Estim Creat Clear Calc 56.93 Est GFR (MDRD) Af Amer 75 Est GFR (MDRD) Non-Af 62 BUN/Creatinine Ratio 9.7 L Glucose 106 Calcium 8.1 L Urine Color Yellow Urine Clarity Sl. Cloudy Urine pH 6.0 Ur Specific [place] 1.020 Urine Protein 30 H Urine Glucose (UA) Normal Urine Ketones Negative Urine Occult Blood 10 H Urine Nitrite Negative Urine Bilirubin 1 H Urine Urobilinogen Normal Ur Leukocyte Esterase 100 H Urine RBC 0 SEEN Urine WBC 5-10 SEEN Ur Squamous Epith Cells 0-5 SEEN Urine Bacteria RARE Urine Mucus 1+ - Medical Decision Making Patient treated with IV fluids and Phenergan, followed by Tylenol. She is feeling better after this, sleepy from the Phenergan. Tolerating oral fluids. Repeat urinalysis shows improvement compared with 2 days ago, so I think it is reasonable to continue and finish the antibiotic as prescribed, without need for a culture or changing it. Clinically she does not have pyelonephritis, so I think after she finishes the 3-day course that would be enough/adequate. I suspect she has a viral gastroenteritis given her lack of risk factors and fairly benign abdomen. I also suspect her fever is related to this and is probably part of the natural progression of this particular illness. I see no evidence of any new infection/cause that requires additional treatment. Supportive care advised and indicated. I did send a set of electrolytes, her potassium is low so we started replacement with a dose of IV potassium chloride, and the plan is to send her home afterwards. She is comfortable with that plan. ED Disposition - Plan for ED Patient: Disposition: Home or Assisted Living Diagnosis: Gastroenteritis, Hypokalemia due to excessive gastrointestinal loss of potassium Instructions: Hypokalemia, GASTROENTERITIS, Viral (8y-Adult) Referrals: Shiva Cohen, DO [Primary Care Provider] - 3-5 Days if not improving
[2019-04-27 04:10] LABS: Red Blood Cells-Urine 0 SEEN /hpf (0-5)
[2019-04-27 04:13] LABS: Color, Urine Yellow (Yellow); Glucose, Dipstick Normal (Normal); Ketone-Dipstick Negative (Negative); Leukocyte Esterase-Dipstick 100 /ul (Negative); Nitrite-Dipstick Negative (Negative); Occult Blood-Urine 10 /ul (Negative); Protein-Dipstick 30 mg/dl (Negative); Urine Bilirubin Dipstick 1 mg/dL (Negative); Urine Clarity Sl. Cloudy (Clear); Urine Urobilinogen Normal (Normal)
[2019-04-27 04:16] LABS: Anion Gap 8 (5-15); BUN 11 mg/dL (7-18); BUN/Creat Ratio 9.7 RATIO (10-20); Calcium,Total 8.1 mg/dL (8.5-10.1); Chloride 109 mmol/L (98-107); Creatinine, Serum 1.13 mg/dL (0.55-1.02); EST Glomerular Filtration Rate 62 mL/min (>60); Est Glom Filt Rate - Afr Amer 75 mL/min (>60); Estimated Creatinine Clearance 56.93 ml/min; Glucose 106 mg/dL (74-106); Potassium 3.3 mmol/L (3.5-5.1); Sodium Level 139 mmol/L (136-145)
[2019-04-27] MEDS: Acetaminophen 500 MG Tablet 1000 MG PO (04:20)
[2019-04-27] MEDS: 0.9% Normal Saline 1,000 ML 999 ML IV (04:20)
[2019-04-27] MEDS: proMETHazine 25 MG/ML Syringe 12.5 MG IV (04:21)
[2019-04-27 04:23] LABS: Bacteria RARE /hpf (None Seen); Mucous, Urine 1+ /hpf (<or=2+); Squamous Epithelial Cells - UA 0-5 SEEN /hpf (5-10); White Blood Cells 5-10 SEEN /hpf (0-5)
[2019-04-27] MEDS: Potassium Chloride 10mEq/100mL 10 MEQ/100 ML IV.SOLN. 100 MEQ IV BOLUS (04:46)
[2019-04-27 05:00] VITALS: BP 119/60; PULSE 97; RESP 18; TEMP 37.8; O2SAT 97
== END 2019-04-27 06:13 | disposition home or self-care (01) ==
PROVIDERS: Emergency Provider Emergency Medicine; Family Provider Family Medicine; PCP Family Medicine
DX: K52.9 Noninfective gastroenteritis and colitis, unspecified (principal); E87.6 Hypokalemia; N39.0 Urinary tract infection, site not specified; G80.9 Cerebral palsy, unspecified
CPT/HCPCS: 80048; 81001; 96365; 96366; 96374; 99284; J7030

== ENCOUNTER 2019-06-26 12:15 | Emergency (ER) | payer MEDICAID, SELFPAY ==
[2019-06-26 12:17] VITALS: BP 127/89; PULSE 84; RESP 17; TEMP 36.7; O2SAT 96; BMI 39.9
[2019-06-26 12:35] VITALS: BP 112/70; BP 121/72; BP 95/78; PULSE 79; PULSE 90; PULSE 95
--- NOTE | 2019-06-26 12:40 | RAD_ITS ---
STUDY: X-RAY CHEST REASON FOR EXAM: Female, 28 years old. COUGH AND SOB TECHNIQUE: PA and lateral views of the chest. COMPARISON: None. FINDINGS: The lungs are clear and expanded. Scattered calcified granulomas. There is no demonstrated pleural abnormality. Normal size heart. Normal mediastinum and darrell. Normal visualized pulmonary arteries. Normal visualized aortic arch and descending thoracic aorta. Normal visualized thoracic spine. Normal visualized ribs, clavicles, and shoulders. There is no demonstrated abnormality of the visualized soft tissue structures of the upper abdomen. RAD/Chest PA and Lateral IMPRESSION: Normal x-ray examination of the chest. Electronically Signed: Juan Panda, at 12:59 EST , Service support ,
--- NOTE | 2019-06-26 13:35 | ED.DCSUM_ITS ---
- ER Visit Summary Date of Service: 06/26/19 Chief Complaint: [Cough and sore throat] History of Present Illness: The patient is a 28 F [presents to the emergency department with symptoms that started 2 days ago. She feels lightheaded and short of breath at times. Patient has coughed so hard that she is actually passed out related to the cough. She denies any chest pain. She does complain of headache and body aches. She denies any sick contacts. Patient does have history of cerebral palsy and history of a PDA repair as an infant.] Physical Examination: [HEENT-PERRLA, EOMI. Cranial nerves II through XII grossly intact. TMs clear. Mucous membranes moist. No adenopathy. No pharyngeal erythema or exudates noted. No adenopathy. Cardiovascular-regular rate and rhythm without murmur or ectopy Lungs-clear to auscultation, chest wall stable without crepitus or subcu em physema Abdomen-normoactive bowel sounds, soft, nontender, no rebound or rigidity, no peritoneal signs. Extremities-intact ?4, normal range of motion, normal pulses, atraumatic] Test Results: [Strep was normal. Influenza screen was positive for influenza B] Emergency Department Course and Treatment: [I will the patient Tamiflu which she would prefer to decline at this time due to the fact that she is nursing.] Treatment Plan: [Patient to push fluids and use ibuprofen or Tylenol for discomfort.] Disposition: [Discharged home in stable condition] Impression: [Influenza B] This note was generated with [employer] dictation software. It may contain incorrect words, spelling, and punctuation that were not noted in review of the chart prior to signing ED Disposition - Plan for ED Patient: Referrals: Care Physician,No Primary [Primary Care Provider] -
--- NOTE | 2019-06-26 13:36 | ED.DEP ---
ED Disposition - Plan for ED Patient: Instructions: INFLUENZA (Adult) Referrals: Care Physician,No Primary [Primary Care Provider] - Latonia Gutierrez MD [STAFF PHYSICIAN] - 5-7 Days
[2019-06-26 13:45] VITALS: BP 123/70; PULSE 73; RESP 18; O2SAT 97
== END 2019-06-26 13:46 | disposition home or self-care (01) ==
LOC: ED 12:46
PROVIDERS: Emergency Provider Emergency Medicine
DX: J10.1 Influenza due to other identified influenza virus with other respiratory manifestations (principal); G80.9 Cerebral palsy, unspecified; Z87.74 Personal history of (corrected) congenital malformations of heart and circulatory system
CPT/HCPCS: 71046; 87804; 99283

== ENCOUNTER 2019-07-16 05:50 | Emergency (ER) | payer BC, SELFPAY ==
[2019-07-16 05:51] VITALS: BP 132/66; PULSE 64; RESP 16; TEMP 36.1; O2SAT 97; BMI 41.3
--- NOTE | 2019-07-16 06:07 | CT_ITS ---
STUDY: CT ABDOMEN AND PELVIS WITH CONTRAST REASON FOR EXAM: Female, 28 years old. ABD PAIN/BLOATING, HX-CEREBRAL PALSY, + FLU 06/26/ RADIATION DOSAGE (If Supplied By Facility): CTDIvol = ( 14.87 ) mGy, DLP = ( 1229.41 ) mGycm TECHNIQUE: Transaxial images were obtained from the dome of the diaphragm to the symphysis pubis without oral contrast. IV 100mL Isovue-300 was administered. Sagittal and coronal images were reconstructed. Individualized dose optimization techniques were used for this CT. COMPARISON: 03/06/2019 FINDINGS: The visualized lung bases are unremarkable. The visualized portions of the heart are within normal limits. Normal liver. Normal gallbladder and extrahepatic biliary system. Normal spleen. Normal pancreas. Normal bilateral adrenal glands. Normal right kidney. Normal left kidney. Normal visualized stomach. Normal small intestine. Normal colon. The appendix is visualized and appears normal. Normal abdominal aorta. Normal inferior vena cava. Normal retroperitoneum. Normal urinary bladder. Normal visualized uterus. Normal abdominal wall. Normal osseous structures. CT/Abdomen/Pelvis W IV Cont ONLY IMPRESSION: Normal enhanced CT of the abdomen and pelvis. Electronically Signed: Newton Galarza DO at 8:04 EST Tel , Service support ,
--- NOTE | 2019-07-16 06:08 | ED.DCSUM_ITS ---
History of Present Illness Chief Complaint: Abd Pain Informant: Patient - Abdominal Pain/Flank Pain Onset: Today Context: Sudden Onset Timing: Continuous Quality: Aching, Burning Location: Epigastric - Nausea/Vomiting/Emesis GI Symptom: Nausea. Negative for: Vomiting - Diarrhea/Melena/Hematochezia GI Symptom: Negative for: Diarrhea, Melena, Hematochezia Associated Symptoms: Negative for: Dysuria, Frequency, Hematuria, Urgency LMP: Summer 2017?patient is has not had a period since the of her son Narrative: Patient is a 28-year-old female presenting with abdominal pain. Patient states she woke up because she was having abdominal pain. It seems to be worse in her epigastric region. She describes as a bloating sensation as well as stabbing. It is in her epigastric region that radiates to her bellybutton and around to her back. She notes it is worse when she takes a deep breath or moves. She has associated nausea but no vomiting. She has had some chills. She has no urinary symptoms. She states she had a normal bowel movement about 40 minutes prior to arrival. She denies of any black or blood in her stool. She states he is never had pain like this before. She never had any abdominal surgeries. She denies any sick contacts. She states she she felt fine yesterday when she went to bed. She did take ibuprofen last night for some dental pain. Patient is currently still breast-feeding. She denies any other complaints or concerns at this time. Past Medical History - Allergies and Home Meds Allergies/Adverse Reactions: Allergies doxylamine [From Diclegis] Adverse Reaction (Mild, Verified 07/16/19 05:51) SYNCOPE/THROAT TIGHTNESS dizziness pyridoxine [From Diclegis] Adverse Reaction (Mild, Verified 07/16/19 05:51) SYNCOPE/TIGHT THROAT dizziness Primary Care Physician: Care Physician,No Primary [Primary Care Provider] - Surgical History: noncontributory, - - PDA repait Lives: Spouse/ Significant Other, With Family Smoking Status: Never smoker Review of Systems General: Reports: Chills. Denies: Fever, Sweats Eyes: Denies: Visual changes - bilaterally, Diplopia ENT: Denies: Rhinorrhea, Sore throat Cardiovascular: Denies: Chest pain, Palpitations Respiratory: Denies: Dyspnea, Cough, Dyspnea on exertion Gastrointestinal: Reports: Abdominal pain, Nausea. Denies: Vomiting, Diarrhea, Melena, Hematochezia Genitourinary: Denies: Dysuria, Hematuria, Frequency Musculoskeletal: Denies: Back pain, Extremity Pain Skin: Denies: Rash, Wounds Neurological: Denies: Headache, Weakness, Numbness Physical Exam Vital Signs/Narrative: Vital Signs Temp Pulse Resp BP Pulse Ox 07/16/19 05:51 97.0 F L 64 16 132/66 H 97 Inital Vital Signs reviewed: Yes General: Well nourished, Well developed, Obese, No Acute Distress Head: Normocephalic, Atraumatic Eyes: Perrl, EOMI ENT: Moist mucous membranes, No rhinorrhea Neck: Supple, Nontender Cardiovascular: Regular rate, Regular rhythm, No murmurs Respiratory: No distress, CTA bilaterally, Chest nontender Abdomen: Soft, Nondistended, Normal bowel sounds, Tender - Diffuse. Negative for: Guarding, Rebound tenderness Back: Nontender, Normal Inspection. Negative for: CVA tenderness Extremities: Nontender, No edema Skin: Normal color, No rash Neurological: Alert, Oriented x3, Cranial nerves II-XII grossly intact, Normal Strength, Normal Sensation Psychological: Normal affect, Normal Mood, - - No eye contact during exam Diagnostic/Tx/Re-eval Clinical Impression(s) from Imaging Studies Abdomen/Pelvis CT 07/16/19 06:07 IMPRESSION: Normal enhanced CT of the abdomen and pelvis. Electronically Signed: Newton Galarza DO at 8:04 EST Tel , Service support , Laboratory Data 07/16/19 07/16/19 07/16/19 06:15 06:15 06:20 WBC 8.9 RBC 5.31 Hgb 14.1 Hct 43.3 MCV 81.5 MCH 26.6 L MCHC 32.6 RDW Std Deviation 43.8 RDW Coeff of Palomo 14.8 H Plt Count 233 MPV 11.4 Immature Gran % (Auto) 0.200 Neut % (Auto) 60.9 Lymph % (Auto) 28.3 Dawes % (Auto) 6.7 Eos % (Auto) 2.7 Baso % (Auto) 1.2 H Absolute Neuts (auto) 5.4 Absolute Lymphs (auto) 2.52 Nucleated RBC % 0 Sodium Potassium Chloride Carbon Dioxide Anion Gap BUN Creatinine Estim Creat Clear Calc Est GFR (MDRD) Af Amer Est GFR (MDRD) Non-Af BUN/Creatinine Ratio Glucose Calcium Total Bilirubin AST ALT Alkaline Phosphatase Total Protein Albumin Globulin Albumin/Globulin Ratio Lipase Urine Color Yellow Urine Clarity Sl. Cloudy Urine pH 5.0 Ur Specific [place] 1.025 Urine Protein 15 H Urine Glucose (UA) Normal Urine Ketones 5 H Urine Occult Blood 10 H Urine Nitrite Negative Urine Bilirubin Negative Urine Urobilinogen 1 H Ur Leukocyte Esterase 500 H Urine RBC 5-10 SEEN Urine WBC 10-25 SEEN Ur Squamous Epith Cells 5-10 SEEN Ur Transition Epith Cell 10-25 SEEN Urine Bacteria 0 SEEN Urine Mucus 0 SEEN Urine Test Negative 07/16/19 06:20 WBC RBC Hgb Hct MCV MCH MCHC RDW Std Deviation RDW Coeff of [place] Plt Count MPV Immature Gran % (Auto) Neut % (Auto) Lymph % (Auto) Dawes % (Auto) Eos % (Auto) Baso % (Auto) Absolute Neuts (auto) Absolute Lymphs (auto) Nucleated RBC % Sodium 142 Potassium 3.9 Chloride 107 Carbon Dioxide 29.0 Anion Gap 6 BUN 24 H Creatinine 0.95 Estim Creat Clear Calc 67.72 Est GFR (MDRD) Af Amer 91 Est GFR (MDRD) Non-Af 75 BUN/Creatinine Ratio 25.3 H Glucose 99 Calcium 9.8 Total Bilirubin 0.40 AST 21 ALT 44 Alkaline Phosphatase 102 Total Protein 7.6 Albumin 3.7 Globulin 3.9 Albumin/Globulin Ratio 0.9 Lipase 149 Urine Color Urine Clarity Urine pH Ur Specific [place] Urine Protein Urine Glucose (UA) Urine Ketones Urine Occult Blood Urine Nitrite Urine Bilirubin Urine Urobilinogen Ur Leukocyte Esterase Urine RBC Urine WBC Ur Squamous Epith Cells Ur Transition Epith Cell Urine Bacteria Urine Mucus Urine Test - Medical Decision Making Patient is evaluated for abdominal pain that started an hour or 2 prior to arrival. Patient appears nontoxic in no acute distress. Her abdomen is soft but she states it is tender. The pain seems to be more concentrated epigastric region but she states that he hurts all over during my exam. She denies any urinary symptoms. Patient is treated with IV Zofran, fluids and Toradol. On reevaluation she states she is feeling better. CT of abdomen pelvis obtained which does not show any acute process including diverticulitis, appendicitis or free air. Patient is counseled that the cause of her pain is not clear however she stable for outpatient follow-up. She will be discharged home with Pepcid and Zofran for symptomatic relief. She is counseled on signs and symptoms require return emergency room. She verbalizes agreement understanding of this plan. She discharged home in stable condition. ED Disposition - Plan for ED Patient: Disposition: Home or Assisted Living Diagnosis: Abdominal pain of unknown etiology Instructions: ABDOMINAL PAIN, Unknown Cause, (Female) Prescriptions: Famotidine [Pepcid] 20 mg PO BID #28 tab Transmission Status: Pending to [id number] Ondansetron [Zofran Odt] 4 mg PO Q8H PRN PRN #10 tab PRN Reason: Nausea Transmission Status: Pending to [id number] Referrals: Care Physician,No Primary [Primary Care Provider] - Additional Instructions: The exact cause of your pain is not clear. I do think you are safe to follow-up with your primary care doctor. Return the emergency room if you have worsening or changing symptoms.
[2019-07-16] MEDS: Famotidine 200 MG/20 ML MDV 20 MG in 0.9% Normal Saline (Pres. free 8 ML 300 MG IV (06:22)
[2019-07-16] MEDS: 0.9% Normal Saline 1,000 ML 1000 ML IV (06:22)
[2019-07-16] MEDS: Ketorolac 30 MG/ML Syringe IV (06:22)
[2019-07-16] MEDS: Ondansetron 4 MG/2 ML Vial IV (06:22)
[2019-07-16 06:32] LABS: Bacteria 0 SEEN /hpf (None Seen); Mucous, Urine 0 SEEN /hpf (<or=2+)
[2019-07-16 06:35] LABS: Absolute Lymphocyte Count 2.52 X10^3/uL (0.83-4.51); Absolute Neutrophil Count 5.4 X10^3/uL (2.0-7.7); Basophil# 0.11 X10^3/uL; Basophil% 1.2 % (0-1); Eosinophil# 0.24 X10^3/uL; Eosinophils% 2.7 % (0-5); Hematocrit 43.3 % (37-47); Hemoglobin 14.1 g/dL (12.0-15.0); Lymphocyte # 2.52 X10^3/ul (4.0); Lymphocyte % 28.3 % (19-41); Mean Corp Hgb Conc 32.6 g/dL (32-36); Mean Corpuscular Hgb 26.6 pg (27.0-32.0); Mean Corpuscular Volume 81.5 fL (81-99); Mean Platelet Vol. 11.4 fl (6.2-12.0); Monocyte% 6.7 % (0-10); NRBC Flagged by Analyzer 0 % (0-5); Neutrophil # 5.43 X10^3/uL (2.7-7.7); Neutrophil % 60.9 % (47-70); Platelet Count 233 K/mm3 (150-450); RBC Distribution Width CV 14.8 % (11.6-14.6); RBC Distribution Width SD 43.8 fl (35.1-43.9); Red Blood Count 5.31 M/mm3 (4.2-5.4); White Blood Count 8.9 K/mm3 (4.4-11.0)
[2019-07-16 06:36] LABS: Color, Urine Yellow (Yellow); Glucose, Dipstick Normal (Normal); Ketone-Dipstick 5 mg/dl (Negative); Leukocyte Esterase-Dipstick 500 /ul (Negative); Nitrite-Dipstick Negative (Negative); Occult Blood-Urine 10 /ul (Negative); Protein-Dipstick 15 mg/dl (Negative); Specific Gravity, Urine 1.025 (1.002-1.030); Urine Bilirubin Dipstick Negative (Negative); Urine Clarity Sl. Cloudy (Clear); Urine Urobilinogen 1 mg/dl (Normal)
[2019-07-16 06:38] LABS: Internal QC Validated? YES +Cl - CLEAR BKGD; Pregnancy, Urine Negative Negative
[2019-07-16 06:49] LABS: Red Blood Cells-Urine 5-10 SEEN /hpf (0-5); Squamous Epithelial Cells - UA 5-10 SEEN /hpf (5-10); White Blood Cells 10-25 SEEN /hpf (0-5)
[2019-07-16 06:52] LABS: Transitional Epithelial - Ur 10-25 SEEN /hpf (0-5)
[2019-07-16 07:00] LABS: ALB/GLOB Ratio 0.9 RATIO (0.9-2.4); AST(SGOT) 21 U/L (15-37); Alanine Aminotransfer ALT/SGPT 44 U/L (13-56); Albumin, Serum 3.7 g/dL (3.2-5.0); Alkaline Phosphatase 102 U/L (45-117); Anion Gap 6 (5-15); BUN 24 mg/dL (7-18); BUN/Creat Ratio 25.3 RATIO (10-20); Calcium,Total 9.8 mg/dL (8.5-10.1); Chloride 107 mmol/L (98-107); Creatinine, Serum 0.95 mg/dL (0.55-1.02); EST Glomerular Filtration Rate 75 mL/min (>60); Est Glom Filt Rate - Afr Amer 91 mL/min (>60); Estimated Creatinine Clearance 67.72 ml/min; Globulin 3.9 g/dL (2.2-4.2); Glucose 99 mg/dL (74-106); Lipase 149 U/L (73-393); Potassium 3.9 mmol/L (3.5-5.1); Protein, Total 7.6 g/dL (6.4-8.2); Sodium Level 142 mmol/L (136-145)
[2019-07-16 07:57] VITALS: BP 128/80; PULSE 75; RESP 16; O2SAT 98
[2019-07-16 08:36] VITALS: BP 118/70; PULSE 80; RESP 14; O2SAT 98
== END 2019-07-16 08:37 | disposition home or self-care (01) ==
PROVIDERS: Emergency Provider Emergency Medicine
DX: R10.13 Epigastric pain (principal); R11.0 Nausea; R68.83 Chills (without fever); E66.9 Obesity, unspecified
CPT/HCPCS: 74177; 80053; 81001; 81025; 83690; 85025; 87077; 87086; 87088; 96361; 96374; 96375; 99284; J7030; Q9967; A4216; J2405; J3490

== ENCOUNTER 2019-07-21 19:24 | Emergency (ER) | payer BC, SELFPAY ==
[2019-07-21 19:25] VITALS: BP 137/94; PULSE 77; RESP 17; TEMP 36.4; O2SAT 97; BMI 40.6
--- NOTE | 2019-07-21 20:44 | ED.VISSUMM ---
- ER Visit Summary Date of Service: 07/21/19 Chief Complaint: [Dental pain] History of Present Illness: The patient is a 28 F [the emergency department complaint of dental pain that started yesterday. Patient states that she has a tooth that required filling and has an appointment for 4 weeks from today to have it filled. While at a [employer] yesterday she did not do something and it caused her tooth to break. Patient complaining of increased pain today. Patient woke up and states that she had a fever up to 103. Patient denies chills or sweats. She denies facial redness. She has history of cerebral palsy. She has had a PDA that has been repaired.] Physical Examination: [HEENT-PERRLA, EOMI. Cranial nerves II through XII grossly intact. TMs clear. Mucous membranes moist. No adenopathy. Dentition-patient has a broken left upper molar #15 is tender to palpation. There is no gingival erythema or abscess noted. No facial cellulitis. Cardiovascular-regular rate and rhythm without murmur or ectopy Lungs-clear to auscultation, chest wall stable without crepitus or subcu emphysema Abdomen-normoactive bowel sounds, soft, nontender, no rebound or rigidity, no peritoneal signs. Extremities-intact ?4, normal range of motion, normal pulses, atraumatic] Test Results: [None indicated] Emergency Department Course and Treatment: [She received amoxicillin 500 mg p.o.] Treatment Plan: [We will be treated with amoxicillin and [place] for pain.] Disposition: [Discharged home in stable condition] Impression: [Ankle pain secondary to dental ayleen] This note was generated with [employer] dictation software. It may contain incorrect words, spelling, and punctuation that were not noted in review of the chart prior to signing ED Disposition - Plan for ED Patient: Referrals: Care Physician,No Primary [Primary Care Provider] -
--- NOTE | 2019-07-21 20:48 | DCINST.ED_ITS ---
ED Disposition - Plan for ED Patient: Instructions: Dental Pain Prescriptions: Amoxicillin 500 mg PO TID #30 tab Prescription Printed Hydrocodone Bitart/Apap 5-325 [[place] 5MG-325MG] 1 tab PO Q4H PRN PRN 2 Days #10 tab PRN Reason: Pain Prescription Printed Referrals: Care Physician,No Primary [Primary Care Provider] - Additional Instructions: see your dentist
[2019-07-21] MEDS: AMOXICILLIN 500 MG CAPSULE PO (20:49)
== END 2019-07-21 21:00 | disposition home or self-care (01) ==
LOC: ED 20:28
PROVIDERS: Emergency Provider Emergency Medicine
DX: K02.9 Dental caries, unspecified (principal); K08.89 Other specified disorders of teeth and supporting structures; S02.5XXA Fracture of tooth (traumatic), initial encounter for closed fracture; R50.9 Fever, unspecified; X58.XXXA Exposure to other specified factors, initial encounter; Y93.9 Activity, unspecified; Y92.9 Unspecified place or not applicable; G80.9 Cerebral palsy, unspecified; Z87.74 Personal history of (corrected) congenital malformations of heart and circulatory system
CPT/HCPCS: 99283

== ENCOUNTER → 2019-09-03 17:11 | Outpatient (CLI) | payer BC, SELFPAY ==
[2019-09-03 17:27] LABS: Absolute Lymphocyte Count 1.34 X10^3/uL (0.83-4.51); Basophil# 0.06 X10^3/uL; Basophil% 0.5 % (0-1); Eosinophil# 0.17 X10^3/uL; Eosinophils% 1.4 % (0-5); Hemoglobin 14.9 g/dL (12.0-15.0); Lymphocyte # 1.34 X10^3/ul (4.0); Lymphocyte % 10.8 % (19-41); Mean Corp Hgb Conc 33.1 g/dL (32-36); Mean Corpuscular Hgb 26.8 pg (27.0-32.0); Mean Corpuscular Volume 81.1 fL (81-99); Mean Platelet Vol. 10.8 fl (6.2-12.0); Monocyte# 0.69 X10^3/uL; Monocyte% 5.6 % (0-10); NRBC Flagged by Analyzer 0 % (0-5); Neutrophil # 10.03 X10^3/uL (2.7-7.7); Platelet Count 258 K/mm3 (150-450); RBC Distribution Width CV 14.3 % (11.6-14.6); RBC Distribution Width SD 41.9 fl (35.1-43.9); Red Blood Count 5.55 M/mm3 (4.2-5.4); White Blood Count 12.4 K/mm3 (4.4-11.0)
[2019-09-03 17:56] LABS: ALB/GLOB Ratio 1.1 RATIO (0.9-2.4); AST(SGOT) 15 U/L (15-37); Alanine Aminotransfer ALT/SGPT 36 U/L (13-56); Alkaline Phosphatase 103 U/L (45-117); Anion Gap 6 (5-15); BUN 17 mg/dL (7-18); Calcium,Total 9.5 mg/dL (8.5-10.1); Chloride 106 mmol/L (98-107); EST Glomerular Filtration Rate 80 mL/min (>60); Est Glom Filt Rate - Afr Amer 97 mL/min (>60); Globulin 3.7 g/dL (2.2-4.2); Glucose 93 mg/dL (74-106); Protein, Total 7.7 g/dL (6.4-8.2); Sodium Level 138 mmol/L (136-145); Thyroid Stim Hormone (TSH) 0.61 uIU/mL (0.358-3.74)
== END ==
LOC: LAB 17:12
PROVIDERS: Visit Provider Family Medicine
DX: R11.0 Nausea (principal); R19.7 Diarrhea, unspecified
CPT/HCPCS: 36415; 80053; 84443; 85025; 87506

== ENCOUNTER 2019-09-04 07:54 | Emergency (ER) | payer BC, SELFPAY ==
[2019-09-04 07:55] VITALS: BP 151/59; PULSE 114; RESP 19; TEMP 36.3; O2SAT 96; BMI 38.2
--- NOTE | 2019-09-04 08:01 | CT_ITS ---
STUDY: CT ABDOMEN AND PELVIS WITH CONTRAST REASON FOR EXAM: Female, 28 years old. Abdomen pain, nausea, vomiting, diarrhea x 1 week -- hx-copd, cerebral palsy RADIATION DOSAGE (If Supplied By Facility): CTDIvol = ( 15.97 ) mGy, DLP = ( 1171.81 ) mGycm TECHNIQUE: Transaxial images were obtained from the dome of the diaphragm to the symphysis pubis with oral contrast. Oral and amp; IV Gastrografin and amp; 100mL Isovue-300 was administered. Sagittal and coronal images were reconstructed. Individualized dose optimization techniques were used for this CT. COMPARISON: Comparison is made with prior examination dated July 16, 2019. FINDINGS: The visualized lung bases are unremarkable. The visualized portions of the heart are within normal limits. Normal liver. Normal gallbladder and extrahepatic biliary system. Normal spleen. Normal pancreas. Normal bilateral adrenal glands. Normal right kidney. Normal left kidney. Normal visualized stomach. Normal small intestine. There are scattered colonic diverticula consistent with diverticulosis. The appendix is visualized and appears normal. Normal abdominal aorta. Normal inferior vena cava. Normal retroperitoneum. Normal urinary bladder. Normal abdominal wall. Normal osseous structures. CT/Abdomen/Pelvis W IV Cont ONLY IMPRESSION: Normal enhanced CT of the abdomen and pelvis. Electronically Signed: Juan Panda, at 10:10 EDT , Service support ,
--- NOTE | 2019-09-04 08:01 | EKG12_ITS ---
Test Reason : Blood Pressure : / mmHG Vent. Rate : 093 BPM Atrial Rate : 093 BPM P-R Int : 124 ms QRS Dur : 076 ms QT Int : 352 ms P-R-T Axes : 062 038 007 degrees QTc Int : 437 ms Normal sinus rhythm Normal ECG Confirmed by PRIYANKA BERG, RAFFY ([id number]), video editor EDDIE ARIAS ([id number]) on 09/06/2019 9:32:49 AM Referred By: DANIELLE Confirmed By:MICHELLE MATHEW MD
--- NOTE | 2019-09-04 08:27 | ED.DCSUM_ITS ---
- ER Visit Summary Date of Service: 09/04/19 Chief Complaint: Abdominal pain History of Present Illness: The patient is a 28 F who presents with vomiting, diarrhea, and abdominal pain. The symptoms have been going on for about a week and a half. She has upper abdominal pain. Associated with myalgias, and she had multiple syncopal episodes today after dry heaving. Symptoms are worse with eating. She denies any abdominal surgical history. Denies any other associated issues. Physical Examination: Afebrile and vital signs unremarkable except for heart rate of 114. The patient appears uncomfortable but not toxic or in distress. Skin is normal in color. She does have some upper abdominal tenderness. No guarding or rebound. Back is diffusely tender. Test Results: Labs, urine, CT pending. EKG showed sinus rhythm at a rate of 93 without any concerning findings. Emergency Department Course and Treatment: Patient was treated with IV fluids and Phenergan while awaiting results, as above. EKG, labs, urine, CT unremarkable. Patient is stable. She is appropriate for outpatient care. She was prescribed Phenergan follow-up with her outpatient stool testing results. Return for any new or worsening issues. Treatment Plan: As above Disposition: Discharge Impression: Vomiting, diarrhea This note was generated with [employer] dictation software. It may contain incorrect words, spelling, and punctuation that were not noted in review of the chart prior to signing ED Disposition - Plan for ED Patient: Referrals: Ruben Woodall MD [Primary Care Provider] -
[2019-09-04] MEDS: proMETHazine 25 MG/ML Syringe 6.25 MG IV (08:52)
[2019-09-04] MEDS: 0.9% Normal Saline 1,000 ML 1000 ML IV (08:52)
[2019-09-04 08:54] LABS: Absolute Lymphocyte Count 1.02 X10^3/uL (0.83-4.51); Absolute Neutrophil Count 6.1 X10^3/uL (2.0-7.7); Basophil# 0.03 X10^3/uL; Basophil% 0.4 % (0-1); Eosinophil# 0.24 X10^3/uL; Eosinophils% 2.9 % (0-5); Hematocrit 43.5 % (37-47); Hemoglobin 14.4 g/dL (12.0-15.0); Lymphocyte # 1.02 X10^3/ul (4.0); Lymphocyte % 12.2 % (19-41); Mean Corp Hgb Conc 33.1 g/dL (32-36); Mean Corpuscular Hgb 26.5 pg (27.0-32.0); Mean Corpuscular Volume 80.1 fL (81-99); Mean Platelet Vol. 10.8 fl (6.2-12.0); Monocyte# 0.92 X10^3/uL; NRBC Flagged by Analyzer 0 % (0-5); Neutrophil # 6.13 X10^3/uL (2.7-7.7); Neutrophil % 72.9 % (47-70); Platelet Count 220 K/mm3 (150-450); RBC Distribution Width CV 14.5 % (11.6-14.6); Red Blood Count 5.43 M/mm3 (4.2-5.4); White Blood Count 8.4 K/mm3 (4.4-11.0)
[2019-09-04 08:55] VITALS: BP 151/59; PULSE 114; RESP 19; TEMP 36.3; O2SAT 96
[2019-09-04 09:01] VITALS: BP 151/59; PULSE 114; RESP 19; TEMP 36.3; O2SAT 96
[2019-09-04 09:10] LABS: AST(SGOT) 18 U/L (15-37); Alanine Aminotransfer ALT/SGPT 29 U/L (13-56); Albumin, Serum 3.6 g/dL (3.2-5.0); Alkaline Phosphatase 96 U/L (45-117); Anion Gap 5 (5-15); BUN 16 mg/dL (7-18); BUN/Creat Ratio 17.4 RATIO (10-20); Calcium,Total 8.8 mg/dL (8.5-10.1); Chloride 110 mmol/L (98-107); Creatinine, Serum 0.92 mg/dL (0.55-1.02); EST Glomerular Filtration Rate 78 mL/min (>60); Est Glom Filt Rate - Afr Amer 95 mL/min (>60); Estimated Creatinine Clearance 73.29 ml/min; Globulin 3.7 g/dL (2.2-4.2); Glucose 104 mg/dL (74-106); Lipase 109 U/L (73-393); Potassium 3.9 mmol/L (3.5-5.1); Protein, Total 7.3 g/dL (6.4-8.2); Sodium Level 138 mmol/L (136-145)
[2019-09-04 09:20] LABS: Internal QC Validated? YES +Cl - CLEAR BKGD; Pregnancy, Serum, hCG Quali. NEGATIVE Negative
[2019-09-04 09:39] LABS: Mucous, Urine 0 SEEN /hpf (<or=2+); Red Blood Cells-Urine 0 SEEN /hpf (0-5)
[2019-09-04 09:40] LABS: Color, Urine Yellow (Yellow); Glucose, Dipstick Normal (Normal); Ketone-Dipstick 5 mg/dl (Negative); Leukocyte Esterase-Dipstick 100 /ul (Negative); Nitrite-Dipstick Negative (Negative); Occult Blood-Urine Negative /ul (Negative); Protein-Dipstick 15 mg/dl (Negative); Specific Gravity, Urine 1.025 (1.002-1.030); Urine Clarity Clear (Clear); Urine Urobilinogen Normal (Normal)
[2019-09-04 09:50] LABS: Urine Bilirubin Dipstick 1 mg/dL (Negative)
[2019-09-04 09:56] LABS: Bacteria RARE /hpf (None Seen); Renal Epithelial Cells 0-5 SEEN /hpf (0-5); Squamous Epithelial Cells - UA 0-5 SEEN /hpf (5-10); White Blood Cells 5-10 SEEN /hpf (0-5)
[2019-09-04 10:01] VITALS: BP 122/67; PULSE 87; RESP 18; TEMP 37.1; O2SAT 98
--- NOTE | 2019-09-04 10:39 | ED.DEP ---
ED Disposition - Plan for ED Patient: Instructions: ED Diet for Vomiting or Diarrhea Adult Prescriptions: proMETHazine tablet [Phenergan] 25 mg PO Q6H PRN PRN #10 tab PRN Reason: Nausea Prescription Printed Referrals: Ruben Woodall MD [Primary Care Provider] -
== END 2019-09-04 11:06 | disposition home or self-care (01) ==
LOC: ED 08:29
PROVIDERS: Emergency Provider Emergency Medicine; PCP Family Medicine
DX: R10.9 Unspecified abdominal pain (principal); R11.2 Nausea with vomiting, unspecified; R19.7 Diarrhea, unspecified; M79.10 Myalgia, unspecified site; G80.9 Cerebral palsy, unspecified; F41.9 Anxiety disorder, unspecified; Z79.899 Other long term (current) drug therapy
CPT/HCPCS: 74177; 80053; 81001; 83690; 84484; 84703; 85025; 93005; 96361; 96374; 99283; J7030; Q9967; A4216

== ENCOUNTER 2020-01-05 13:49 | Emergency (ER) | payer BC, SELFPAY ==
[2020-01-05 13:50] VITALS: BP 134/78; PULSE 99; RESP 15; TEMP 36.7; O2SAT 97; BMI 43.5
[2020-01-05 13:56] VITALS: RESP 16
--- NOTE | 2020-01-05 14:03 | ED.VISSUMM ---
- ER Visit Summary Date of Service: 01/05/20 Chief Complaint: [Rash] History of Present Illness: The patient is a 29 F [presents the emergency department chief complaint of a rash that started last evening. Patient states that she has not done anything different as far as soaps or detergents. She denies any recent illness. She denies fever or cough. She currently is not taking any medications. She is never had a rash like this before. The rash does itch. She has history of cerebral palsy, anxiety, depression.] Physical Examination: [HEENT-PERRLA, EOMI. Cranial nerves II through XII grossly intact. TMs clear. Mucous membranes moist. No adenopathy. Cardiovascular-regular rate and rhythm without murmur or ectopy Lungs-clear to auscultation, chest wall stable without crepitus or subcu emphysema Abdomen-normoactive bowel sounds, soft, nontender, no rebound or rigidity, no peritoneal signs. Skin exam-patient has diffuse patchy rash involving the lower extremities as well as upper extremities. Trunk also involved. Rashes mostly circular erythematous and slightly raised. No petechiae or vesicles noted. Extremities-intact ?4, normal range of motion, normal pulses, atraumatic] Test Results: [None indicated] Emergency Department Course and Treatment: Patient given prednisone 40 mg p.o. [] Treatment Plan: [We will be treated with prednisone. Patient also will be advised to take Benadryl for itching. Patient advised to follow-up with primary care physician in 5 to 7 days.] Disposition: [Discharged home in stable condition] Impression: [Dermatitis-suspect urticaria] This note was generated with [employer] dictation software. It may contain incorrect words, spelling, and punctuation that were not noted in review of the chart prior to signing ED Disposition - Plan for ED Patient: Referrals: Ruben Woodall MD [Primary Care Provider] -
--- NOTE | 2020-01-05 14:06 | ED.DEP ---
ED Disposition - Plan for ED Patient: Instructions: ED URTICARIA Prescriptions: Prednisone [Deltasone] 20 mg PO BID #10 tab Prescription Printed Referrals: Ruben Woodall MD [Primary Care Provider] - 5-7 Days
[2020-01-05] MEDS: predniSONE 20 MG Tablet 40 MG PO (14:08)
[2020-01-05 14:16] VITALS: BP 126/80; PULSE 107; RESP 16; O2SAT 99
--- NOTE | 2020-01-05 14:16 | ED.RN ---
REVIEWED D/C INSTRUCTIONS, FOLLOW UP CARE, PRESCRIPTION, AND S/S THAT WOULD WARRANT A RETURN TO THE ED WITH PT. PT VERBALIZED AN UNDERSTANDING AND DENIES FURTHER QUESTIONS FOR THIS RN. PT SKIN P/W/D, RESP EVEN AND UNLABORED, PT A&O X 3, NO DISTRESS NOTED. PT AMBULATED OUT OF ED, GAIT STEADY.
== END 2020-01-05 14:18 | disposition home or self-care (01) ==
LOC: ED 14:15
PROVIDERS: Emergency Provider Emergency Medicine; PCP Family Medicine
DX: L30.9 Dermatitis, unspecified (principal); F32.9 Major depressive disorder, single episode, unspecified; F41.9 Anxiety disorder, unspecified; G80.9 Cerebral palsy, unspecified; Z79.899 Other long term (current) drug therapy
CPT/HCPCS: 99283

== ENCOUNTER 2020-04-17 21:12 | Emergency (ER) | payer BC, SELFPAY ==
[2020-04-17 21:13] VITALS: BP 153/65; PULSE 90; RESP 18; TEMP 36.2; O2SAT 97; BMI 39.3
[2020-04-17 21:29] LABS: Bacteria 0 SEEN /hpf (None Seen); Mucous, Urine 0 SEEN /hpf (<or=2+)
[2020-04-17 21:40] LABS: Color, Urine Yellow (Yellow); Glucose, Dipstick Normal (Normal); Ketone-Dipstick Negative (Negative); Leukocyte Esterase-Dipstick 500 /ul (Negative); Nitrite-Dipstick Negative (Negative); Occult Blood-Urine 50 /ul (Negative); Protein-Dipstick Negative (Negative); Urine Bilirubin Dipstick Negative (Negative); Urine Clarity Sl. Cloudy (Clear); Urine Urobilinogen Normal (Normal)
[2020-04-17 21:46] LABS: Red Blood Cells-Urine 5-10 SEEN /hpf (0-5); White Blood Cells 50-100 SEEN /hpf (0-5)
[2020-04-17 21:47] LABS: Amorphous Sediment 1+ URATE; Squamous Epithelial Cells - UA 5-10 SEEN /hpf (5-10)
--- NOTE | 2020-04-17 22:26 | ED.VIS.GEN ---
History of Present Illness Chief Complaint: Complaint Detail of Chief Complaint: dysuria Informant: Patient Onset: Days - 2 Context: Gradual Onset Timing: Continuous Quality: burning Location: urethral Current Severity: Mild Maximum Severity: Moderate Worsened by: urinating Relieved by: azo temporarily Associated Symptoms: urgency Narrative: Patient with a history of bladder infections and feels like she has another one. Not sexually active, last normal menstrual cycle 2 weeks ago, has been regular. Mild lower abdominal discomfort but no serious pains. No back pain, no fevers, chills, vomiting, hematuria. - Past Medical History (1) Anxiety Status: Chronic (2) Cerebral palsy Status: Chronic (3) Depression Status: Chronic Past Medical History - Allergies and Home Meds Allergies/Adverse Reactions: Allergies doxylamine [From Diclegis] Adverse Reaction (Mild, Verified 04/17/20 21:14) SYNCOPE/THROAT TIGHTNESS dizziness pyridoxine [From Diclegis] Adverse Reaction (Mild, Verified 04/17/20 21:14) SYNCOPE/TIGHT THROAT dizziness Primary Care Physician: Ruben Woodall MD [Primary Care Provider] - Surgical History: noncontributory, - - PDA repait Smoking Status: Never smoker Review of Systems General: Denies: Chills, Fever, Sweats Eyes: Denies: Visual changes - bilaterally, Diplopia ENT: Denies: Rhinorrhea, Sore throat Cardiovascular: Denies: Chest pain, Palpitations Respiratory: Denies: Dyspnea, Cough, Dyspnea on exertion Gastrointestinal: Reports: Abdominal pain. Denies: Nausea, Vomiting, Diarrhea, Melena, Hematochezia Genitourinary: Reports: Dysuria, Frequency, - - Urinary urgency. Denies: Hematuria Musculoskeletal: Denies: Back pain, Extremity Pain Skin: Denies: Rash, Wounds Neurological: Denies: Headache, Weakness, Numbness Physical Exam Vital Signs/Narrative: Vital Signs Temp Pulse Resp BP Pulse Ox 04/17/20 21:13 97.1 F L 90 18 153/65 H 97 Inital Vital Signs reviewed: Yes General: Well nourished, Well developed, Obese, No Acute Distress Head: Normocephalic, Atraumatic ENT: Moist mucous membranes, No rhinorrhea Neck: Supple, Nontender Cardiovascular: Regular rate, Regular rhythm, No murmurs Respiratory: No distress, CTA bilaterally, Chest nontender Abdomen: Soft, Nontender, Nondistended, Normal bowel sounds Back: Nontender, Normal Inspection. Negative for: CVA tenderness Extremities: Nontender, No edema Skin: Normal color, No rash Neurological: Alert, Oriented x3, Cranial nerves II-XII grossly intact, Normal Strength, Normal Sensation, Normal Gait Psychological: Normal affect, Normal Mood Diagnostic/Tx/Re-eval Laboratory Tests 04/17/20 Range/Units 21:20 Urine Color Yellow (Yellow) Urine Clarity Sl. Cloudy (Clear) Urine pH 6.0 (5.0 - 8.0) Ur Specific [place] 1.020 (1.002-1.030) Urine Protein Negative (Negative) mg/dl Urine Glucose (UA) Normal (Normal) mg/dl Urine Ketones Negative (Negative) mg/dl Urine Occult Blood 50 H (Negative) /ul Urine Nitrite Negative (Negative) Urine Bilirubin Negative (Negative) mg/dL Urine Urobilinogen Normal (Normal) mg/dl Ur Leukocyte Esterase 500 H (Negative) /ul Urine RBC 5-10 SEEN (0-5) /hpf Urine WBC 50-100 SEEN (0-5) /hpf Ur Squamous Epith Cells 5-10 SEEN (5-10) /hpf Amorphous Sediment 1+ URATE Urine Bacteria 0 SEEN (None Seen) /hpf Urine Mucus 0 SEEN (<or=2+) /hpf - Medical Decision Making Consistent with nonhemorrhagic cystitis. Patient is well-appearing and has no features of pyelonephritis. She has never had a short course of antibiotic fail for a urine infection. Will be placed on a 3-day course of Bactrim. ED Disposition - Plan for ED Patient: Disposition: Home or Assisted Living Diagnosis: Acute cystitis without hematuria Instructions: ED CYSTITIS Female Adult Prescriptions: Sulfamethoxazole/Trimethoprim [Bactrim Ds Tablet] 1 ea PO BID #6 tab Prescription Printed Referrals: Ruben Woodall MD [Primary Care Provider] - 3-5 Days if not improving
[2020-04-17 23:30] VITALS: BP 148/62; PULSE 84; RESP 16; O2SAT 97
== END 2020-04-17 23:30 | disposition home or self-care (01) ==
LOC: ED 22:34
PROVIDERS: Emergency Provider Emergency Medicine; PCP Family Medicine
DX: N30.00 Acute cystitis without hematuria (principal); E66.9 Obesity, unspecified; F41.9 Anxiety disorder, unspecified; G80.9 Cerebral palsy, unspecified
CPT/HCPCS: 81001; 99282

== ENCOUNTER → 2020-05-08 16:11 | Outpatient (CLI) | payer BC, SELFPAY ==
[2020-04-17 21:13] VITALS: BMI 39.3
== END ==
PROVIDERS: PCP Family Medicine; Referring Provider Family Medicine; Visit Provider Registered Nurse
DX: Z20.828 Contact with and (suspected) exposure to other viral communicable diseases (principal)
CPT/HCPCS: 87635; U0003

== ENCOUNTER 2020-10-18 11:44 | Emergency (ER) | payer BC, SELFPAY ==
[2020-10-18 11:45] VITALS: BP 146/86; PULSE 102; RESP 16; TEMP 35.7; O2SAT 99; BMI 45.7
--- NOTE | 2020-10-18 11:55 | ED.RN ---
pt due date may 01, 2021, approx 12 weeks. third per pt.
--- NOTE | 2020-10-18 12:26 | EX.ED.DYSGE1 ---
HPI History of Present Illness Chief Complaint: Abd Pain Informant: patient Narrative Narrative: 30-year-old female presents to the emergency department with lower abdominal cramping. She states she is 12 weeks ( Ab0). She states that she has been taking Zofran fairly regularly for nausea. Cramping began this morning. She had a very small bowel movement. She denies any urinary symptoms. She states that she spoke with her doctor and they recommended that she drink some fluid and rest. She denies any leakage of fluid or bleeding. She does note that she has been developing some constipation which has not been an issue in the past for her. [facility] Medical History Cerebral palsy PDA (patent ductus arteriosus) Home Medications vit-iron fum-folic ac [Prena-Tab] 1 tab PO DAILY 10/18/20 [History Last Taken Unknown] Allergy/AdvReac Type Severity Reaction Status Date / Time doxylamine [From Diclegis] AdvReac Mild SYNCOPE/THROAT Verified 10/18/20 11:45 TIGHTNESS pyridoxine [From Diclegis] AdvReac Mild SYNCOPE/TIGHT Verified 10/18/20 11:45 THROAT Social History (Updated 10/18/20 @ 12:[address] Greg Gonzales DO) Smoking Status: Never smoker substance use type: does not use ROS ROS ED Constitutional Constitutional ED: Denies chills or weight loss Eyes Eyes: Denies change in vision or diplopia ENT ENT ED: Denies ear pain, rhinorrhea or sore throat Cardiovascular Cardiovascular: Denies chest pain, orthopnea, palpitations or racing heartbeat Respiratory/Chest Respiratory/Chest: Denies cough, dyspnea or orthopnea Gastrointestinal Gastrointestinal: Reports abdominal pain and constipation; Denies diarrhea, nausea or vomiting Genitourinary Genitourinary ED: Denies dysuria, hematuria or urinary frequency Musculoskeletal Musculoskeletal: Denies arthralgias or myalgias Integumentary Denies abscess or rash Neurologic Neurologic: Denies headache(s) or weakness Psychiatric Psychiatric: Denies anxiety, depression, suicidal ideation or suicidal thoughts Endocrine Endocrinology: Denies polydipsia, polyphagia or polyuria Allergic/Immunologic Allergic/Immunologic ED: Denies mouth swelling, tongue swelling or urticaria EXAM Physical Exam Const Vital Signs: 10/18/20 11:45 Temperature 96.2 F L Temperature Source Temporal Pulse Rate 102 H Respiratory Rate 16 Blood Pressure 146/86 H Blood Pressure Mean 106 Pulse Ox 99 Oxygen Delivery Method Room Air Positive well nourished, well developed and obese General Appearance ED: well developed Nutritional Appearance: obese HEENT Reports normocephalic, head/scalp atraumatic and moist mucous membranes Eyes PERRL and EOMs intact bilaterally Neck no lymphadenopathy, supple and no JVD Resp normal respiratory effort and clear to auscultation bilaterally Cardio regular rate, regular rhythm and no murmurs GI normal to inspection, nondistended, normoactive bowel sounds and non-tender Palpation: soft Back/Spine no CVA tenderness and normal ROM Extremity normal to inspection General Extremety ED: Negative for edema General Extremity: Negative for edema Neuro oriented x3 and CN's II-XII intact bilaterally Sensorium / Orientation: alert Motor Exam: strength 5/5 throughout Psych mental status grossly normal Mood & Affect: Negative for depressed or tearful Skin no rashes or lesions noted and no wounds MDM MDM MDM Narrative Medical decision making narrative: Bedside ultrasound demonstrates a single live intrauterine . heart rate is 160. Excellent movement. Urinalysis was obtained. This demonstrates 10-25 squamous cells. She is otherwise asymptomatic. I do question whether or not the patient's pain can be from her being constipated. I would recommend MiraLAX and following up with [employer] as scheduled. Lab Data Labs: Laboratory Results - last 24 hr 10/18/20 12:30 Urine Color Yellow Urine Clarity Sl. Cloudy Urine pH 6.0 Ur Specific [place] 1.015 Urine Protein Negative Urine Glucose (UA) Normal Urine Ketones 5 H Urine Occult Blood Negative Urine Nitrite Negative Urine Bilirubin Negative Urine Urobilinogen Normal Ur Leukocyte Esterase 500 H Urine RBC 0 SEEN Urine WBC 5-10 SEEN Ur Squamous Epith Cells 10-25 SEEN Urine Bacteria 1+ Urine Mucus 0 SEEN Discharge Plan Triage Chief Complaint: Abd Pain ED Provider: Greg Gonzales Dx/Rx/DC Orders Clinical Impression: , Constipation Instructions: ED Constipation (Adult) Prescriptions: No Action Prena-Tab 65 mg iron- 1 mg Tablet 1 tab PO DAILY RF: 0 Primary Care Provider: Ruben Woodall Referrals: Ruben Woodall MD [Primary Care Provider] - As Needed Activity Restrictions/Additional Instructions: I would recommend taking some MiraLAX to help with the constipation. Please follow-up with your [employer] Disposition Disposition: Home, self care
[2020-10-18 12:35] LABS: Mucous, Urine 0 SEEN /hpf (<or=2+); Red Blood Cells-Urine 0 SEEN /hpf (0-5)
[2020-10-18 12:36] LABS: Color, Urine Yellow (Yellow); Glucose, Dipstick Normal (Normal); Ketone-Dipstick 5 mg/dl (Negative); Leukocyte Esterase-Dipstick 500 /ul (Negative); Nitrite-Dipstick Negative (Negative); Occult Blood-Urine Negative /ul (Negative); Protein-Dipstick Negative (Negative); Specific Gravity, Urine 1.015 (1.002-1.030); Urine Bilirubin Dipstick Negative (Negative); Urine Clarity Sl. Cloudy (Clear); Urine Urobilinogen Normal (Normal)
[2020-10-18 12:41] LABS: Squamous Epithelial Cells - UA 10-25 SEEN /hpf (5-10)
[2020-10-18 12:42] LABS: Bacteria 1+ /hpf (None Seen); White Blood Cells 5-10 SEEN /hpf (0-5)
== END 2020-10-18 12:59 | disposition home or self-care (01) ==
LOC: ED 12:56
PROVIDERS: Emergency Provider Emergency Medicine; PCP Family Medicine
DX: O26.891 Other specified pregnancy related conditions, first trimester (principal); O99.211 Obesity complicating pregnancy, first trimester; O99.611 Diseases of the digestive system complicating pregnancy, first trimester; O99.351 Diseases of the nervous system complicating pregnancy, first trimester; K59.00 Constipation, unspecified; E66.9 Obesity, unspecified; G80.9 Cerebral palsy, unspecified; Z3A.12 12 weeks gestation of pregnancy
CPT/HCPCS: 81001; 99282

== ENCOUNTER 2021-04-28 19:05 | Outpatient (CLI) | payer BC, SELFPAY ==
[2021-04-28] VITALS (8 sets, daily range): BP systolic 134–148; BP diastolic 75–85; PULSE 82–98; RESP 16; TEMP 36.4; O2SAT 98–99; BMI 43.6; BMI 42.7
--- NOTE | 2021-04-28 19:45 | NURSING ---
Patient brought into triage to evaluate for an ongoing headache. The patient delivered at [facility] on 04/22/21 by Sammie Quintero. She states it was an uncomplicated vaginal delivery followed by a laparoscopic tubal. She denies any history of preeclampsia. 3/3. States she developed a headache last evening at 2200. She has been alternating between [place], Motrin, and Tylenol and increased her fluid intake per her provider recomendation. She is now rating her pain a 6/10. She reports the the Tylenol and Motrin have taken the edge off today. She states she did not want to drive to [place] with this headache and came here to be evaluated.
--- NOTE | 2021-04-28 23:08 | NURSING ---
Patient given verbal and written discharge instructions. Patient states she is comfortable going home at this time. Patient encouraged to use Tylenol and [place] this evening for pain control. If pain not improving patient to return to hospital or call her primary provider.
--- NOTE | 2021-05-05 08:42 | PCM.PN.OB ---
Subjective Subjective Patient here for an ongoing headache. The patient delivered at [facility] on 04/22/21 by Sammie Quintero. She states it was an uncomplicated vaginal delivery followed by a laparoscopic tubal. She denies any history of preeclampsia. 3/3. States she developed a headache last evening at 2200. She has been alternating between [place], Motrin, and Tylenol and increased her fluid intake per her provider recomendation. She is now rating her pain a 6/10. She reports the the Tylenol and Motrin have taken the edge off today. She states she did not want to drive to [place] with this headache and came here to be evaluated. Blood pressures on labor and delivery were normal and no evidence of PIH symptoms otherwise. Patient discharged to home this evening with routine instructions instructed to follow-up with her obstetric provider tomorrow. Objective Data Objective Data Vital Signs: Vital Signs Temp Pulse Resp BP Pulse Ox 97.6 F L 82 16 134/75 H 98 04/28/21 18:55 04/28/21 20:16 04/28/21 18:55 04/28/21 20:16 04/28/21 19:23 Oxygen Delivery Method Room Air Weight: 226 lb 3.2 oz Body Mass Index (BMI) 42.7
== END 2021-04-28 20:25 | disposition home or self-care (01) ==
LOC: WPOUT 19:15 → WP 19:15
PROVIDERS: PCP Family Medicine; Visit Provider Obstetrics & Gynecology
DX: O26.899 Other specified pregnancy related conditions, unspecified trimester (principal); R51.9 Headache, unspecified; Z3A.00 Weeks of gestation of pregnancy not specified
CPT/HCPCS: 99218; G0378

== ENCOUNTER 2021-10-10 18:00 | Emergency (ER) | payer BC, SELFPAY ==
[2021-10-10 18:00] VITALS: BP 110/76; PULSE 112; RESP 18; TEMP 37.3; O2SAT 97; BMI 47.2
--- NOTE | 2021-10-10 18:37 | EDS_ITS ---
HPI History of Present Illness Chief Complaint: Nausea/Vomiting/Diarrhea Detail of Chief Complaint: Nausea, vomiting, and diarrhea for 48 hours Informant: patient Narrative Narrative: Patient presents to the emergency department with complaint of vomiting and diarrhea that started 48 hours ago. Patient states that today alone she is thrown up 15 times and has had about 20 episodes of watery stool. She denies any blood in her vomitus or stool. Patient states that her had a diarrheal illness that lasted about a week. Patient denies any urinary symptoms. Patient is currently nursing a 6-month-old. She took Imodium today to be able to get to the hospital. She denies any fevers. She denies any abdominal pain. Patient states that every time she throws up or has a bowel movement she feels that she is in a pass out and has passed out for seconds at a time. Prior similar symptoms: No PFSH PFSH Medical History Cerebral palsy PDA (patent ductus arteriosus) Home Medications vit-iron fum-folic ac [Prena-Tab] 1 tab PO DAILY 10/18/20 [History Last Taken 04/28/21 02:00] metformin 500 mg PO DAILY 04/28/21 [History Last Taken 04/28/21 08:00] ondansetron 4 mg PO Q8H PRN PRN #10 tab 10/10/21 [Rx Last Taken Unknown] Allergy/AdvReac Type Severity Reaction Status Date / Time doxylamine [From Diclegis] AdvReac Mild SYNCOPE/THROAT Verified 10/10/21 18:02 TIGHTNESS pyridoxine [From Diclegis] AdvReac Mild SYNCOPE/TIGHT Verified 10/10/21 18:02 THROAT Social History (Updated 10/18/20 @ 12:[address] Greg Gonzales DO) Smoking Status: Never smoker substance use type: does not use ROS ROS ED Constitutional Constitutional ED: Reports systems reviewed and no addt'l complaints, except as documented; Denies body ache(s), change in weight or chills Eyes Eyes: Denies acute decrease in peripheral vision, change in vision, double vis ion or loss of vision ENT ENT ED: Reports none; Denies ear pain, lip swelling, loss taste/smell, neck p ain, otalgia or sore throat Cardiovascular Cardiovascular: Reports none; Denies abdominal pain, chest pain with activity, leg edema, lightheadedness, palpitations, rapid heart rate or syncope Respiratory/Chest Respiratory/Chest: Reports none; Denies change in mental status, dry cough, dyspnea, hemoptysis, shortness of breath at rest or shortness of breath with exertion Gastrointestinal Gastrointestinal: Reports none, diarrhea, nausea and vomiting; Denies abdominal pain, change in stool character, hematemesis, hematochezia, melena or rectal bleeding Genitourinary Genitourinary ED: Reports none; Denies abdominal discomfort, anuria, dysuria, genital pain or polyuria Musculoskeletal Musculoskeletal: Reports none; Denies arthralgias, back pain, difficulty walking, extremity pain, muscle weakness or myalgias Integumentary Reports none; Denies abscess or rash Neurologic Neurologic: Reports none; Denies abnormal gait, confusion, focal weakness, frequent falls, headache(s), loss of vision, numbness, paresthesias, radicular pain, vertigo or weakness Psychiatric Psychiatric: Reports systems reviewed and no addt'l complaints, except as documented and none; Denies behavioral changes, confusion, difficulty concentrating, hallucinations, suicidal ideation, tactile hallucinations or visual hallucinations Endocrine Endocrinology: Denies none, cold intolerance, excessive sweating, fatigue or heat intolerance Hematologic/Lymphatic Hematologic/Lymphatic: Reports none; Denies anemia, easy bleeding or easy bruising Allergic/Immunologic Allergic/Immunologic ED: Denies as per HPI, none, lip swelling, mouth swelling, throat swelling, tongue swelling or hives EXAM Physical Exam Const Vital Signs: 10/10/21 18:00 10/10/21 20:14 Temperature 99.2 F H Temperature Source Temporal Pulse Rate 112 H Pulse Rate [Lying] 99 Pulse Rate [Sitting (for 1 minute prior to obtaining)] 99 Pulse Rate [Standing (for 1 minute prior to obtaining)] 119 H Respiratory Rate 18 Blood Pressure 110/76 Blood Pressure [Lying] 133/75 H Blood Pressure [Sitting (for 1 minute prior to obtaining)] 145/84 H Blood Pressure [Standing (for 1 minute prior to obtaining)] 118/64 Blood Pressure Mean 87 Blood Pressure Mean [Lying] 94 Blood Pressure Mean [Sitting (for 1 minute prior to obtaining)] 104 Blood Pressure Mean [Standing (for 1 minute prior to obtaining)] 82 Pulse Ox 97 Oxygen Delivery Method Room Air Positive well nourished and well developed General Appearance ED: well developed and NAD HEENT Reports TM's clear and moist mucous membranes normocephalic and atraumatic; Negative for trauma or tenderness Tympanic Membrane ED: Yes TM's clear Eyes PERRL and EOMs intact bilaterally General Eye ED: Negative for pale conjunctiva or scleral icterus Neck no lymphadenopathy, supple and no JVD General: Negative for tenderness Chest Wall inspection of chest normal and palpation of chest normal Chest: Negative for tenderness Resp normal respiratory effort and clear to auscultation bilaterally Effort and Inspection: Negative for respiratory distress or pain with movement Auscultation: Negative for rhonchi, wheezes or diminished lung sounds Cardio regular rate, regular rhythm, S1 normal heart sound, S2 normal heart sound and no murmurs Peripheral Pulses: pulses 2+ throughout GI normal to inspection, nondistended, normoactive bowel sounds, soft to palpation, non-tender, non-distended and no masses Back/Spine no CVA tenderness and no thoracic nor lumbar tenderness Extremity normal to inspection General Extremety ED: Negative for edema General Extremity: Negative for edema Neuro oriented x3, CN's II-XII intact bilaterally, no sensory deficits noted and gait normal Sensorium / Orientation: awake, alert, oriented to person, oriented to place and oriented to time Motor Exam: strength 5/5 throughout and strength abnormal Psych mental status grossly normal Skin no rashes or lesions noted and no wounds MDM MDM MDM Narrative Medical decision making narrative: IV line established. Patient was given a liter normal saline fluid bolus. Orthostatic blood pressures were obtained and she did drop systolic of about 30 points from sitting to standing and she felt slightly lightheaded. Patient will be given a second liter of fluid. Lab work- up was unremarkable. I suspect she has a viral gastroenteritis. She did receive Zofran and had no further nausea or vomiting. She is not had any more diarrhea since being in the department and taken Imodium at home. Patient will be given a prescription for Zofran and advised to follow-up with her primary care physician in 5 to 7 days. She is to return if persistent vomiting, dehydration, or condition should worsen anyway. Lab Data Attestation: I reviewed the patient's lab results. Labs: Laboratory Results - last 24 hr 10/10/21 10/10/21 18:50 18:50 WBC 9.3 RBC 5.67 H Hgb 14.5 Hct 45.0 MCV 79.4 L MCH 25.6 L MCHC 32.2 RDW Std Deviation 45.0 H RDW Coeff of Palomo 15.9 H Plt Count 245 MPV 11.6 Immature Gran % (Auto) 0.300 Neut % (Auto) 86.0 H Lymph % (Auto) 8.2 L [place] % (Auto) 4.4 Eos % (Auto) 0.8 Baso % (Auto) 0.3 Absolute Neuts (auto) 8.0 H Absolute Lymphs (auto) 0.76 L Nucleated RBC % 0 Sodium 137 Potassium 3.9 Chloride 104 Carbon Dioxide 26.0 Anion Gap 7 BUN 17 Creatinine 0.88 Estim Creat Clear Calc 71.18 Est GFR (MDRD) Af Amer 98 Est GFR (MDRD) Non-Af 81 BUN/Creatinine Ratio 19.3 Glucose 98 Calcium 9.2 Discharge Plan Triage Chief Complaint: Nausea/Vomiting/Diarrhea ED Provider: Patricio Myles Dx/Rx/DC Orders Clinical Impression: Viral gastroenteritis Instructions: ED Gastroenteritis, Viral (Adult) Prescriptions: New ondansetron [ondansetron] 4 MG tablet 4 mg PO Q8H PRN PRN (Reason: Nausea) Qty: 10 RF: 0 No Action Prena-Tab 65 mg iron- 1 mg Tablet 1 tab PO DAILY RF: 0 metformin 500 mg Tablet 500 mg PO DAILY RF: 0 Primary Care Provider: Ruben Woodall Referrals: Ruben Woodall MD [Primary Care Provider] - Disposition Disposition: Home, Self Care
[2021-10-10] MEDS: 0.9% Normal Saline 1,000 ML 1000 ML IV (18:52)
[2021-10-10] MEDS: Ondansetron 4 MG/2 ML Vial IV (18:52)
[2021-10-10 19:06] LABS: Absolute Lymphocyte Count 0.76 X10^3/uL (0.83-4.51); Basophil# 0.03 X10^3/uL; Basophil% 0.3 % (0-1); Eosinophil# 0.07 X10^3/uL; Eosinophils% 0.8 % (0-5); Hemoglobin 14.5 g/dL (12.0-15.0); Lymphocyte # 0.76 X10^3/ul (0.83-4.51); Lymphocyte % 8.2 % (19-41); Mean Corp Hgb Conc 32.2 g/dL (32-36); Mean Corpuscular Hgb 25.6 pg (27.0-32.0); Mean Corpuscular Volume 79.4 fL (81-99); Mean Platelet Vol. 11.6 fl (6.2-12.0); Monocyte# 0.41 X10^3/uL; Monocyte% 4.4 % (0-10); NRBC Flagged by Analyzer 0 % (0-5); Neutrophil # 7.96 X10^3/uL (2.7-7.7); Platelet Count 245 K/mm3 (150-450); RBC Distribution Width CV 15.9 % (11.6-14.6); Red Blood Count 5.67 M/mm3 (4.2-5.4); White Blood Count 9.3 K/mm3 (4.4-11.0)
[2021-10-10 19:16] LABS: Anion Gap 7 (5-15); BUN 17 mg/dL (7-18); BUN/Creat Ratio 19.3 RATIO (10-20); Calcium,Total 9.2 mg/dL (8.5-10.1); Chloride 104 mmol/L (98-107); Creatinine, Serum 0.88 mg/dL (0.55-1.02); EST Glomerular Filtration Rate 81 mL/min (>60); Est Glom Filt Rate - Afr Amer 98 mL/min (>60); Estimated Creatinine Clearance 71.18 ml/min; Glucose 98 mg/dL (74-106); Potassium 3.9 mmol/L (3.5-5.1); Sodium Level 137 mmol/L (136-145)
[2021-10-10 20:14] VITALS: BP 118/64; BP 133/75; BP 145/84; PULSE 119; PULSE 99
[2021-10-10] MEDS: 0.9% Normal Saline 1,000 ML 999 ML IV (21:38)
[2021-10-10] MEDS: Ketorolac 30 MG/ML Syringe IV (21:45)
[2021-10-10 22:05] VITALS: PULSE 84; RESP 16; O2SAT 99
== END 2021-10-10 22:54 | disposition home or self-care (01) ==
PROVIDERS: Emergency Provider Emergency Medicine; PCP Family Medicine; Visit Provider Emergency Medicine
DX: A08.4 Viral intestinal infection, unspecified (principal)
CPT/HCPCS: 80048; 85025; 96361; 96374; 96375; 99284; J7030; A4216; J2405

== ENCOUNTER 2021-10-13 07:23 | Emergency (ER) | payer BC, SELFPAY ==
[2021-10-13 07:24] VITALS: BP 144/89; PULSE 78; RESP 16; TEMP 36.6; O2SAT 98; BMI 43.8
[2021-10-13 07:26] VITALS: BP 144/89; PULSE 78; RESP 16; TEMP 36.6; O2SAT 98
[2021-10-13 07:30] VITALS: BP 132/70; BP 137/92; BP 144/89; PULSE 101; PULSE 69; PULSE 72
[2021-10-13] MEDS: 0.9% Normal Saline 1,000 ML 1000 ML IV (07:44)
[2021-10-13 07:48] LABS: Absolute Lymphocyte Count 1.34 X10^3/uL (0.83-4.51); Basophil# 0.03 X10^3/uL; Basophil% 0.5 % (0-1); Eosinophil# 0.17 X10^3/uL; Eosinophils% 2.7 % (0-5); Hematocrit 43.1 % (37-47); Hemoglobin 13.7 g/dL (12.0-15.0); Lymphocyte # 1.34 X10^3/ul (0.83-4.51); Lymphocyte % 21.4 % (19-41); Mean Corp Hgb Conc 31.8 g/dL (32-36); Mean Corpuscular Hgb 25.4 pg (27.0-32.0); Mean Platelet Vol. 11.2 fl (6.2-12.0); Monocyte# 0.66 X10^3/uL; Monocyte% 10.5 % (0-10); NRBC Flagged by Analyzer 0 % (0-5); Neutrophil # 4.04 X10^3/uL (2.7-7.7); Neutrophil % 64.6 % (47-70); Platelet Count 208 K/mm3 (150-450); RBC Distribution Width CV 15.9 % (11.6-14.6); RBC Distribution Width SD 45.4 fl (35.1-43.9); Red Blood Count 5.39 M/mm3 (4.2-5.4); White Blood Count 6.3 K/mm3 (4.4-11.0)
--- NOTE | 2021-10-13 07:55 | EDS_ITS ---
HPI HPI - GI History of Present Illness Chief Complaint: Nausea/Vomiting/Diarrhea Narrative Narrative: 31-year-old female presenting with diarrhea. She states she had multiple episodes of loose stool and watery diarrhea for several days. Initially she had nausea and vomiting which has resolved with Zofran. She has been able to tolerate small amounts of food and fluids. She states that her diarrhea is so constant that she feels dehydrated. Patient has mild diffuse crampy abdominal pain. She is not had a fever. She states that her had a similar set of symptoms and after his diarrhea resolved he was doing well. She states he had diarrhea for 3 days. No urinary complaints or vaginal complaints. [facility] Medical History Cerebral palsy PDA (patent ductus arteriosus) Home Medications ondansetron 4 mg PO Q8H PRN PRN #10 tab 10/10/21 [Rx Last Taken Unknown] buspirone [BuSpar] 25 mg PO DAILY 10/13/21 [History Last Taken Unknown] Allergy/AdvReac Type Severity Reaction Status Date / Time doxylamine [From Diclegis] AdvReac Mild SYNCOPE/THROAT Verified 10/13/21 07:27 TIGHTNESS pyridoxine [From Diclegis] AdvReac Mild SYNCOPE/TIGHT Verified 10/13/21 07:27 THROAT Social History Smoking Status: Never smoker substance use type: does not use ROS ROS ED Constitutional Constitutional ED: Denies chills or fever(s) ENT ENT ED: Denies rhinorrhea or sore throat Cardiovascular Cardiovascular: Denies chest pain or palpitations Respiratory/Chest Respiratory/Chest: Denies cough or dyspnea Gastrointestinal Gastrointestinal: Reports abdominal pain, diarrhea, nausea and vomiting Genitourinary Genitourinary ED: Denies dysuria or hematuria Musculoskeletal Musculoskeletal: Denies arthralgias or myalgias Integumentary Denies rash Neurologic Neurologic: Denies headache(s) or weakness Psychiatric Psychiatric: Denies anxiety or depression Endocrine Endocrinology: Denies polydipsia or polyuria EXAM Physical Exam Const Vital Signs: 10/13/21 07:24 10/13/21 07:26 10/13/21 07:30 Temperature 97.8 F 97.8 F Temperature Source Oral Oral Pulse Rate 78 78 Pulse Rate [Lying] 69 Pulse Rate [Sitting (for 1 minute prior to obtaining)] 72 Pulse Rate [Standing (for 1 minute prior to obtaining)] 101 H Respiratory Rate 16 16 Blood Pressure 144/89 H 144/89 H Blood Pressure [Lying] 132/70 H Blood Pressure [Sitting (for 1 minute prior to obtaining)] 137/92 H Blood Pressure [Standing (for 1 minute prior to obtaining)] 144/89 H Blood Pressure Mean 107 107 Blood Pressure Mean [Lying] 90 Blood Pressure Mean [Sitting (for 1 minute prior to obtaining)] 107 Blood Pressure Mean [Standing (for 1 minute prior to obtaining)] 107 Pulse Ox 98 98 Oxygen Delivery Method Room Air Room Air 10/13/21 08:28 Temperature 97.2 F L Temperature Source Oral Pulse Rate 79 Pulse Rate [Lying] Pulse Rate [Sitting (for 1 minute prior to obtaining)] Pulse Rate [Standing (for 1 minute prior to obtaining)] Respiratory Rate 16 Blood Pressure 129/72 H Blood Pressure [Lying] Blood Pressure [Sitting (for 1 minute prior to obtaining)] Blood Pressure [Standing (for 1 minute prior to obtaining)] Blood Pressure Mean 91 Blood Pressure Mean [Lying] Blood Pressure Mean [Sitting (for 1 minute prior to obtaining)] Blood Pressure Mean [Standing (for 1 minute prior to obtaining)] Pulse Ox 99 Oxygen Delivery Method Room Air Positive well nourished General Appearance ED: NAD; Negative for pallor HEENT Reports moist mucous membranes normocephalic and atraumatic Eyes PERRL and EOMs intact bilaterally General Eye ED: Negative for pale conjunctiva or scleral icterus Resp normal respiratory effort and clear to auscultation bilaterally Cardio regular rate and regular rhythm GI non-distended Auscultation: normoactive bowel sounds Palpation: soft Back/Spine no CVA tenderness Neuro Sensorium / Orientation: alert, oriented to person, oriented to place and oriented to time Psych mental status grossly normal and thought process normal Skin General Skin Exam: Negative for jaundice or pallor Rashes: no rashes MDM MDM MDM Narrative Medical decision making narrative: Patient presenting with diarrhea. Her nausea and vomiting has resolved. Orthostatic vital signs were checked and her blood pressures respond adequately however her heart rate jumped from 78-101. Liter of IV fluids is given. Patient given Bentyl for her crampy abdominal pain. CBC within normal limits. BMP also normal. Patient feels improved after Bentyl and IV fluids. She is given Bentyl and a refill for Zofran for home. She is counseled to keep hydrated. Patient given return precautions. Impression: 1 viral gastroenteritis 2. Dehydration Lab Data Labs: Laboratory Results - last 24 hr 10/13/21 10/13/21 07:41 07:41 WBC 6.3 RBC 5.39 Hgb 13.7 Hct 43.1 MCV 80.0 L MCH 25.4 L MCHC 31.8 L RDW Std Deviation 45.4 H RDW Coeff of [place] 15.9 H Plt Count 208 MPV 11.2 Immature Gran % (Auto) 0.300 Neut % (Auto) 64.6 Lymph % (Auto) 21.4 [place] % (Auto) 10.5 H Eos % (Auto) 2.7 Baso % (Auto) 0.5 Absolute Neuts (auto) 4.0 Absolute Lymphs (auto) 1.34 Nucleated RBC % 0 Sodium 138 Potassium 3.5 Chloride 106 Carbon Dioxide 25.0 Anion Gap 7 BUN 13 Creatinine 0.92 Estim Creat Clear Calc 68.08 Est GFR (MDRD) Af Amer 93 Est GFR (MDRD) Non-Af 77 BUN/Creatinine Ratio 14.2 Glucose 96 Calcium 9.9 Discharge Plan Triage Chief Complaint: Nausea/Vomiting/Diarrhea ED Provider: Han Keith Dx/Rx/DC Orders Prescriptions: No Action ondansetron [ondansetron] 4 MG tablet 4 mg PO Q8H PRN PRN (Reason: Nausea) Qty: 10 RF: 0 buspirone [BuSpar] 5 mg Tablet 25 mg PO DAILY RF: 0 Primary Care Provider: Ruben Lewis Referrals: Ruben Lewis MD [Primary Care Provider] - Disposition Disposition: Home, Self Care Discharge Date/Time: 10/13/21 11:32
[2021-10-13 08:01] LABS: Anion Gap 7 (5-15); BUN 13 mg/dL (7-18); BUN/Creat Ratio 14.2 RATIO (10-20); Calcium,Total 9.9 mg/dL (8.5-10.1); Chloride 106 mmol/L (98-107); Creatinine, Serum 0.92 mg/dL (0.55-1.02); EST Glomerular Filtration Rate 77 mL/min (>60); Est Glom Filt Rate - Afr Amer 93 mL/min (>60); Estimated Creatinine Clearance 68.08 ml/min; Glucose 96 mg/dL (74-106); Potassium 3.5 mmol/L (3.5-5.1); Sodium Level 138 mmol/L (136-145)
[2021-10-13] MEDS: Dicyclomine 10 MG Capsule 20 MG PO (08:25)
[2021-10-13 08:28] VITALS: BP 129/72; PULSE 79; RESP 16; TEMP 36.2; O2SAT 99
== END 2021-10-13 11:32 | disposition home or self-care (01) ==
LOC: ED 07:50
PROVIDERS: Emergency Provider Student in an Organized Health Care Education/Training Program; PCP Family Medicine; Visit Provider Student in an Organized Health Care Education/Training Program
DX: A08.4 Viral intestinal infection, unspecified (principal); G80.9 Cerebral palsy, unspecified; E86.0 Dehydration; R10.84 Generalized abdominal pain; Q25.0 Patent ductus arteriosus
CPT/HCPCS: 80048; 85025; 96360; 99285; J7030; A4216

== ENCOUNTER 2022-05-11 23:31 | Emergency (ER) | payer BC, SELFPAY ==
[2022-05-11 23:31] VITALS: BP 143/82; PULSE 104; RESP 16; TEMP 36.2; O2SAT 97; BMI 44.1
[2022-05-11 23:42] VITALS: O2SAT 99
--- NOTE | 2022-05-11 23:55 | EDS_ITS ---
HPI HPI - URI History of Present Illness Chief Complaint: Shortness of Breath Detail of Chief Complaint: Flulike symptoms that started Monday Informant: patient Onset/Context/Timing Onset: Days Context: Sudden Onset Timing: Continuous and Waxes and wanes Quality: Upper respiratory symptoms Location: Upper respiratory Current Severity: Mild Maximum Severity: Moderate Worsened by: - (Coughing and exertion); Not Worsened By Swallowing, Eating Solids or Drinking Liquids Relieved by: Not Relieved By Tylenol or NSAIDs Associated Symptoms Associated Symptoms: Positive for Nasal Congestion, Headache, Myalgias, Shortness of Breath and Nonproductive cough; Negative for Sinus Pressure, Nausea, Vomiting, Diarrhea, Chest Pain, Hemoptysis or Productive Cough Narrative Narrative: Pain is a 31-year-old female who presents because of persistent shortness of breath. Her upper respiratory symptoms started on Monday. She had a positive influenza test for [place]. She was prescribed Tamiflu. She states she has not gotten better. She does endorse headache, rhinorrhea, congestion, sore throat, nonproductive cough and myalgias arthralgias. T-max 102.9 ?F. She denies GI symptoms. She denies urologic symptoms. Patient states she was not informed that the Tamiflu only decreases the duration of the illness. Prior similar symptoms: Yes Recent Illness/Hospitalization: Yes ROS ROS ED Constitutional Constitutional ED: Reports chills and fever(s); Denies subjective, sweats or weight loss Eyes Eyes: Denies blurry vision, change in vision or diplopia ENT ENT ED: Reports rhinorrhea and sore throat; Denies ear pain Cardiovascular Cardiovascular: Denies chest pain, orthopnea, palpitations, paroxysmal nocturnal dyspnea or racing heartbeat Respiratory/Chest Respiratory/Chest: Reports cough and dyspnea; Denies orthopnea, paroxysmal nocturnal dyspnea or sputum Gastrointestinal Gastrointestinal: Denies abdominal pain, diarrhea, nausea or vomiting Genitourinary Genitourinary ED: Denies dysuria, hematuria or urinary frequency Musculoskeletal Musculoskeletal: Reports arthralgias and myalgias; Denies back pain or neck pain Integumentary Denies Abrasions or rash Neurologic Neurologic: Reports headache(s); Denies paresthesias or weakness Endocrine Endocrinology: Denies cold intolerance or heat intolerance Hematologic/Lymphatic Hematologic/Lymphatic: Denies easy bleeding, easy bruising or lymphadenopathy [facility] Medical History Cerebral palsy PDA (patent ductus arteriosus) Home Medications ondansetron 4 mg disintegrating tablet 4 mg PO Q8H PRN PRN Nausea #10 tabs 10/10/21 [Rx Last Taken Unknown] buspirone 5 mg tablet 25 mg PO DAILY 10/13/21 [History Last Taken Unknown] Allergy/AdvReac Type Severity Reaction Status Date / Time doxylamine [From Diclegis] AdvReac Mild SYNCOPE/THROAT Verified 05/11/22 23:31 TIGHTNESS pyridoxine [From Diclegis] AdvReac Mild SYNCOPE/TIGHT Verified 05/11/22 23:31 THROAT Social History (Updated 05/11/22 @ 23:[address] Ze German MD) household members: none Smoking Status: Never smoker substance use type: does not use EXAM Physical Exam Const Vital Signs: 05/11/22 23:31 05/11/22 23:42 05/11/22 23:43 Temperature 97.2 F L Temperature Source Temporal Pulse Rate 104 H Respiratory Rate 16 Respiratory Effort Short of Breath Blood Pressure 143/82 H Blood Pressure Mean 102 Pulse Ox 97 99 Oxygen Delivery Method Room Air Room Air Positive well nourished, well developed and obese General Appearance ED: well developed and NAD; Negative for cyanotic, diaphoretic or pallor Nutritional Appearance: obese HEENT Reports moist mucous membranes normocephalic and atraumatic Face and Sinus: Negative for sinus tenderness or facial tenderness Throat: posterior oropharynx normal Eyes PERRL and EOMs intact bilaterally General Eye ED: Yes pale conjunctiva and scleral icterus Neck no lymphadenopathy, supple and no meningeal signs Neck Narrative: Trachea is midline. There is no in-store expiratory stridor. Resp normal respiratory effort and clear to auscultation bilaterally Cardio S1 normal heart sound, S2 normal heart sound and no murmurs Rate: tachycardic Rhythm: regular rhythm GI non-tender, non-distended and no masses Inspection: abdominal distention Back/Spine no CVA tenderness Extremity normal to inspection and full ROM Extremity Narrative: Insert UT Neuro oriented x3 and CN's II-XII intact bilaterally Neuro Narrative: Moves all extremities Sensorium / Orientation: alert Psych mental status grossly normal Skin General Skin Exam: Negative for jaundice or pallor Lesions: no lesions Rashes: no rashes MDM MDM MDM Narrative Medical decision making narrative: Patient presents with upper respiratory symptoms. Patient's respiratory rate is normal. Patient's pulse ox 99% on room air. Patient was informed this is due to influenza infection. She was informed that Tamiflu shortens the duration of illness. She was informed that there is nothing to do at this time since she has no wheezing and her respiratory rate and pulse ox are normal. Discharge Plan Triage Chief Complaint: Shortness of Breath ED Provider: Ze German Dx/Rx/DC Orders Clinical Impression: Influenza A, Shortness of breath, Sinus tachycardia Instructions: ED Influenza (Adult) Prescriptions: No Action ondansetron [ondansetron] 4 MG tablet 4 mg PO Q8H PRN PRN (Reason: Nausea) Qty: 10 0RF buspirone [BuSpar] 5 mg Tablet 25 mg PO DAILY Primary Care Provider: Ruben Lewis Referrals: Ruben Lewis MD [Primary Care Provider] - 1 Week if not improving Disposition Disposition: Home, Self Care
== END 2022-05-12 00:18 | disposition home or self-care (01) ==
LOC: ED 05-12 00:13
PROVIDERS: Emergency Provider Emergency Medicine; Visit Provider Emergency Medicine
DX: J10.1 Influenza due to other identified influenza virus with other respiratory manifestations (principal); R06.02 Shortness of breath; R00.0 Tachycardia, unspecified; E66.9 Obesity, unspecified
CPT/HCPCS: 99282

== ENCOUNTER 2022-08-13 20:17 | Emergency (ER) | payer BC, SELFPAY ==
[2022-08-13 20:18] VITALS: BP 153/73; PULSE 76; RESP 14; TEMP 36.6; O2SAT 98; BMI 46.0
--- NOTE | 2022-08-13 20:25 | CT_ITS ---
STUDY: CT Abdomen And Pelvis W/ Contrast Injection 08/13/2022 9:43 PM REASON FOR EXAM: Female, 31 years old. ABDOMINAL PAIN Pain, diarrhea TECHNIQUE: Transaxial images were obtained without oral contrast, and with IV 100mL Isovue-370 intravenous contrast. Individualized dose optimization techniques were used for this CT. COMPARISON: 09.04.19. FINDINGS: The visualized lung bases are unremarkable. The visualized portions of the heart are within normal limits. There is hepatomegaly with diffuse hepatic enlargement. Unremarkable gallbladder and extrahepatic biliary system. Unremarkable spleen. Unremarkable pancreas. Unremarkable bilateral adrenal glands. No acute findings of the right kidney. No acute findings of the left kidney. Focal wall thickening of the antrum of stomach. This can suggest a gastritis. Unremarkable small intestine. There are multiple colonic diverticula consistent with diverticulosis. The appendix is visualized and appears unremarkable. There are no acute findings of the abdominal aorta. Unremarkable inferior vena cava. Subcentimeter mesenteric lymph nodes. Unremarkable urinary bladder. Multiple scattered mesenteric, cecal, periappendiceal, and periaortic lymph nodes. This can suggest mesenteric adenitis. There is an umbilical hernia containing fat. Unremarkable osseous structures. CT/Abdomen/Pelvis W IV Cont ONLY IMPRESSION: (NOT LISTED IN ORDER OF SIGNIFICANCE) Gastritis. There is hepatomegaly with diffuse hepatic enlargement. Multiple scattered mesenteric, cecal, periappendiceal, and periaortic lymph nodes. This can suggest mesenteric adenitis. Other findings as above. Electronically Signed: Jeb Naranjo MD at 21:51 EDT ,
--- NOTE | 2022-08-13 20:26 | ED.VIS.GI ---
HPI HPI - GI History of Present Illness Chief Complaint: Abd Pain Narrative Narrative: 31-year-old female who denies significant past medical history except for depression for which she takes Zoloft presents with abdominal pain and diarrhea that she has had for the last 3 to 5 days. She states that she had over 20 episodes of diarrhea. She developed a headache. She was told to take Tylenol by her primary care provider's office because they told her that she probably had a virus. She states that she is having diffuse mid abdominal pain. Her stool has changed from diarrhea to a pasty consistency, but not black. She does not take blood thinners. She is nauseated but has not vomited. She presents because of the abdominal pain, multiple episodes of diarrhea. [facility] Medical History Cerebral palsy PDA (patent ductus arteriosus) Home Medications famotidine 20 mg tablet (Pepcid) 20 mg PO BID #28 tabs 08/13/22 [Rx Last Taken Unknown] ondansetron 4 mg disintegrating tablet 4 mg PO Q6H PRN nausea and vomiting #14 tabs 08/13/22 [Rx Last Taken Unknown] sertraline 25 mg tablet (Zoloft) 10 mg PO DAILY 08/13/22 [History Last Taken Unknown] Allergy/AdvReac Type Severity Reaction Status Date / Time doxylamine [From Diclegis] AdvReac Mild SYNCOPE/THROAT Verified 08/13/22 20:18 TIGHTNESS pyridoxine [From Diclegis] AdvReac Mild SYNCOPE/TIGHT Verified 08/13/22 20:18 THROAT Social History household members: none Smoking Status: Never smoker substance use type: does not use ROS ROS ED ROS Narrative Constitutional: No fever, no chills. HEENT: No sore throat. No neck pain. No loss of vision. No rhinorrhea. Cardiovascular: No chest pain. No palpitations. No pedal edema. Respiratory: No cough, no shortness of breath. Abdominal: Mid radiating to flanks abdominal pain. Positive nausea. No vomiting. Multiple episodes of nonbloody diarrhea, stool darker with pasty consistency. Genitourinary: No dysuria. No hematuria. Musculoskeletal: No myalgias. No arthralgias. Neurologic: Positive headaches. No dizziness. No lightheadedness. Skin: No rash. No change in color. Psychiatric: No depression. No anxiety. EXAM Physical Exam Narrative Exam Narrative: Afebrile. Vital signs noted. HEENT: Normocephalic. Atraumatic. PERRL, EOMI. Neck soft and supple. No point tenderness or step off. Cardiovascular: Regular rate and rhythm. No murmurs, rubs, or gallops appreciated. Respiratory: No tachypnea. Lungs clear to auscultation bilaterally. Gastrointestinal: Abdomen soft, diffuse mild tenderness to palpation with normoactive bowel sounds. No rebound or guarding. Neurological: Awake. Alert. Nonfocal, nonlateralizing. Skin: No rash. Normal color. No pallor. Musculoskeletal: No pedal edema. Full range of motion extremities. Const Vital Signs: 08/13/22 20:18 Temperature 98 F Temperature Source Temporal Pulse Rate 76 Respiratory Rate 14 Blood Pressure 153/73 H Blood Pressure Mean 99 Pulse Ox 98 Oxygen Delivery Method Room Air MDM MDM MDM Narrative Medical decision making narrative: Reviewed her prior records, she has had viral gastroenteritis in the past as an ED diagnosis. With the thought of dehydration she will be bolused normal saline I will check her CBC to look for elevated white count, and check her electrolytes and renal function to make sure she is not severely dehydrated from her reported multiple episodes of diarrhea. I do feel that CT imaging is indicated. Her past abdominal surgery is for bilateral tubal ligation/removal. I will obtain a serum test regardless. I will also check a lipase given her mid abdominal pain and nausea. She was administered a bolus of normal saline and ondansetron 4 mg intravenously. I reviewed her initial laboratory work, she has a normal white count of 8.0, hemoglobin normal at 14.0, platelet count normal at 252. Review of her CMP shows chloride slightly elevated at 111, but she does not have a profound dehydration from her multiple reported episodes of diarrhea. Her BUN is normal at 15 with a creatinine normal at 0.87, sodium normal at 143 with potassium 3.9. LFTs are normal with an AST of 17 and ALT of 28 and a normal alk phos of 78. Lipase also normal at 134. Serum is negative. I reviewed her CT imaging. I also reviewed the CT report by the radiologist which shows gastritis. She was given Pepcid 20 mg orally here and a prescription written to take 20 mg twice a day for the next 2 weeks. At this point in time, she will also be written for Zofran. I feel she can be discharged safely home with follow-up. Return instructions to the emergency department were reviewed. She will follow-up with gastroenterology as needed. Disposition is discharged home in stable condition. History & Record Review Discussion w/independent historian: Patient Additional record(s) reviewed:: Prior ED visit Lab Data Attestation: I reviewed the patient's lab results. Labs: Laboratory Results - last 24 hr 08/13/22 08/13/22 08/13/22 20:35 20:35 20:35 WBC 8.0 RBC 5.16 Hgb 14.0 Hct 43.3 MCV 83.9 MCH 27.1 MCHC 32.3 RDW Std Deviation 42.7 RDW Coeff of Palomo 13.8 Plt Count 252 MPV 11.2 Immature Gran % (Auto) 0.400 Neut % (Auto) 64.1 Lymph % (Auto) 22.1 [place] % (Auto) 10.3 H Eos % (Auto) 1.8 Baso % (Auto) 1.3 H Absolute Neuts (auto) 5.1 Absolute Lymphs (auto) 1.77 Nucleated RBC % 0 Sodium 143 Potassium 3.9 Chloride 111 H Carbon Dioxide 25.0 Anion Gap 7 BUN 15 Creatinine 0.87 Estim Creat Clear Calc 72.00 Est GFR (MDRD) Af Amer 98 Est GFR (MDRD) Non-Af 81 BUN/Creatinine Ratio 17.2 Glucose 98 Calcium 8.6 Total Bilirubin 0.50 AST 17 ALT 28 Alkaline Phosphatase 78 Total Protein 7.0 Albumin 3.6 Globulin 3.4 Albumin/Globulin Ratio 1.1 Lipase 134 Serum , Qual NEGATIVE Radiography Diagnostic Testing: Clinical Impression(s) from Imaging Studies Abdomen/Pelvis CT 08/13/22 20:25 IMPRESSION: (NOT LISTED IN ORDER OF SIGNIFICANCE) Gastritis. There is hepatomegaly with diffuse hepatic enlargement. Multiple scattered mesenteric, cecal, periappendiceal, and periaortic lymph nodes. This can suggest mesenteric adenitis. Other findings as above. Electronically Signed: Jeb Naranjo MD at 21:51 EDT , Discharge Plan Triage Chief Complaint: Abd Pain ED Provider: Romie Oliver Dx/Rx/DC Orders Clinical Impression: Abdominal pain, Diarrhea, Nausea, Gastritis Instructions: ED Abdominal Pain Unkn Cause Fem, ED Diarrhea, Unknown Cause, ED Gastritis (Adult) Prescriptions: New famotidine [Pepcid] 20 mg tablet 20 mg PO BID Qty: 28 0RF ondansetron 4 mg tablet,disintegrating 4 mg PO Q6H PRN (Reason: nausea and vomiting) Qty: 14 0RF No Action sertraline [Zoloft] 25 mg Tablet 10 mg PO DAILY Primary Care Provider: Care Physician,No Primary Referrals: Friend,Derian, DO [Med Staff - Active Staff] - As soon as possible Care Physician,No Primary [Primary Care Provider] - Disposition Disposition: Home, Self Care
[2022-08-13] MEDS: 0.9% Normal Saline 1,000 ML 1000 ML IV (20:39)
[2022-08-13] MEDS: Ondansetron 4 MG/2 ML Vial IV (20:42)
[2022-08-13 20:43] LABS: Absolute Lymphocyte Count 1.77 X10^3/uL (0.83-4.51); Absolute Neutrophil Count 5.1 X10^3/uL (2.0-7.7); Basophil% 1.3 % (0-1); Eosinophil# 0.14 X10^3/uL; Eosinophils% 1.8 % (0-5); Hematocrit 43.3 % (37-47); Lymphocyte # 1.77 X10^3/ul (0.83-4.51); Lymphocyte % 22.1 % (19-41); Mean Corp Hgb Conc 32.3 g/dL (32-36); Mean Corpuscular Hgb 27.1 pg (27.0-32.0); Mean Corpuscular Volume 83.9 fL (81-99); Mean Platelet Vol. 11.2 fl (6.2-12.0); Monocyte# 0.82 X10^3/uL; Monocyte% 10.3 % (0-10); NRBC Flagged by Analyzer 0 % (0-5); Neutrophil # 5.14 X10^3/uL (2.7-7.7); Neutrophil % 64.1 % (47-70); Platelet Count 252 K/mm3 (150-450); RBC Distribution Width CV 13.8 % (11.6-14.6); RBC Distribution Width SD 42.7 fl (35.1-43.9); Red Blood Count 5.16 M/mm3 (4.2-5.4)
[2022-08-13 20:50] LABS: Internal QC Validated? YES +Cl - CLEAR BKGD; Pregnancy, Serum, hCG Quali. NEGATIVE Negative
[2022-08-13 21:09] LABS: ALB/GLOB Ratio 1.1 RATIO (0.9-2.4); AST(SGOT) 17 U/L (15-37); Alanine Aminotransfer ALT/SGPT 28 U/L (13-56); Albumin, Serum 3.6 g/dL (3.2-5.0); Alkaline Phosphatase 78 U/L (45-117); Anion Gap 7 (5-15); BUN 15 mg/dL (7-18); BUN/Creat Ratio 17.2 RATIO (10-20); Calcium,Total 8.6 mg/dL (8.5-10.1); Chloride 111 mmol/L (98-107); Creatinine, Serum 0.87 mg/dL (0.55-1.02); EST Glomerular Filtration Rate 81 mL/min (>60); Est Glom Filt Rate - Afr Amer 98 mL/min (>60); Globulin 3.4 g/dL (2.2-4.2); Glucose 98 mg/dL (74-106); Lipase 134 U/L (73-393); Potassium 3.9 mmol/L (3.5-5.1); Sodium Level 143 mmol/L (136-145)
[2022-08-13] MEDS: Ketorolac 30 MG/ML Syringe IV (21:42)
[2022-08-13 22:00] VITALS: PULSE 68; RESP 15; O2SAT 99
[2022-08-13] MEDS: Famotidine 20 MG Tablet PO (22:07)
== END 2022-08-13 22:10 | disposition home or self-care (01) ==
PROVIDERS: Emergency Provider Emergency Medicine; Visit Provider Emergency Medicine
DX: R10.9 Unspecified abdominal pain (principal); K29.70 Gastritis, unspecified, without bleeding; R19.7 Diarrhea, unspecified; R11.0 Nausea; F32.A Depression, unspecified; Z79.899 Other long term (current) drug therapy; Z98.51 Tubal ligation status
CPT/HCPCS: 74177; 80053; 83690; 84703; 85025; 96361; 96374; 96375; 99284; J7030; Q9967; A4216; J2405

== ENCOUNTER → 2022-08-17 | Outpatient (CLI) | payer BC, SELFPAY ==
[2022-08-17 12:00] LABS: Erythrocyte Sedimentation Rate 5 mm/hr (0-30)
[2022-08-17 12:25] LABS: CRP 5.26 mg/L (0.0-3.0); LDH 205 U/L (84-246); Vitamin B12 487 pg/mL (211-911); Vitamin D,25 Hydroxy 21.9 ng/mL
[2022-08-18 16:10] LABS: Endomysial Antibody IgA Negative (Negative)
[2022-08-18 20:25] LABS: Immunoglobulin A 153 mg/dL (87-352); t-Transglutaminase IgA <2 U/mL (0-3)
[2022-08-20 06:07] LABS: Albumin 3.8 g/dL (2.9-4.4); Alpha-1-Globulins 0.3 g/dL (0.0-0.4); Alpha-2-Globulins 0.7 g/dL (0.4-1.0); Cytoplasmic Ab (C-ANCA) <1:20 titer (Neg:<1:20); Gamma Globulin 0.9 g/dL (0.4-1.8); Immunoglobulin A 163 mg/dL (87-352); Immunoglobulin E 7 IU/mL (6-495); Immunoglobulin G 840 mg/dL (586-1602); Immunoglobulin M 114 mg/dL (26-217); PROEL- TOTAL PROTEIN 6.8 g/dL (6.0-8.5)
[2022-08-20 09:00] LABS: Perinuclear Ab (P-ANCA) <1:20 titer (Neg:<1:20)
[2022-08-20 09:08] LABS: Anti-Centromere B Ab <0.2 AI (0.0-0.9); Anti-Chromatin <0.2 AI (0.0-0.9); Anti-Jo <0.2 AI (0.0-0.9); Anti-Scleroderma-70 AB <0.2 AI (0.0-0.9); Beef <0.10 kU/L (Class 0); Corn <0.10 kU/L (Class 0); Egg, Whole <0.10 kU/L (Class 0); Milk (Cow) <0.10 kU/L (Class 0); Peanut <0.10 kU/L (Class 0); Pork <0.10 kU/L (Class 0); RNP Ab <0.2 AI (0.0-0.9); SJOGREN'S Anti-SS-A test 0.2 AI (0.0-0.9); SJOGREN'S Anti-SS-B test < 0.2 AI (0.0-0.9); Smith Ab <0.2 AI (0.0-0.9); Soybean <0.10 kU/L (Class 0); Vitamin D 1,25-Dihydroxy 60.1 pg/mL (24.8-81.5); Wheat <0.10 kU/L (Class 0)
[2022-08-20 12:30] LABS: Anti-dsDNA Ab 1 IU/mL (0-9); Chocolate <0.10 kU/L (Class 0)
== END | disposition home or self-care (01) ==
LOC: LAB 11:19
PROVIDERS: Visit Provider Internal Medicine Gastroenterology
DX: K58.9 Irritable bowel syndrome, unspecified (principal); R10.9 Unspecified abdominal pain
CPT/HCPCS: 36415; 82306; 82607; 82652; 82784; 82785; 83516; 83615; 83630; 84165; 85652; 86003; 86005; 86140; 86225; 86235; 86255; 86256; 86334; 87493; 87506

== ENCOUNTER → 2022-08-19 | Outpatient (CLI) | payer BC, SELFPAY ==
[2022-08-24 10:00] LABS: Calprotectin, Stool 25 ug/g (0-120)
[2022-08-27 11:22] LABS: Pancreatic Elastase, Fecal 459 (>200)
== END | disposition home or self-care (01) ==
LOC: LABSPEC 12:55
PROVIDERS: Referring Provider Internal Medicine Gastroenterology; Visit Provider Internal Medicine Gastroenterology
DX: R10.9 Unspecified abdominal pain (principal)
CPT/HCPCS: 82653; 83993; 87177; 87209; 87329

== ENCOUNTER 2022-10-26 08:11 | Day surgery (SDC) | payer BC, SELFPAY ==
--- NOTE | 2022-10-26 08:22 | HP.PCM_ITS ---
History and Physical Date of Admission: 10/26/22 NAIN TSE, is a 31 F who presents to the office today for PMH anxiety/depression; cerebral palsy; patent ductus arteriosus [facility] ED 10.10.21 N/V/D for 48 hours with lightheadedness. IVF provided. Orthostatics noted systolic drop with lightheadedness. Nursing a 6-month old. Suspect viral gastroenteritis. Biochemical without acute concern and discharged with Zofran. ?Biochemical?CBC, CMP without pertinent abnormality. [facility] ED 10.13.21 with loose/ watery stools of increased frequency for several days; N/V resolved with Zofran use. Reports with similar symptoms. Biochemical workup without acute concern. Discharged with?bentyl and Zofran. ?Biochemical?CBC, CMP without pertinent abnormality. [facility] ED 08.13.22 with abdominal pain and loose stools with increased frequency for 3-5 days. PCP seen who felt changes r/t a virus. Biochemical workup and imaging noting gastritis, without acute concern and she was discharged with Pepcid and Zofran. ?Biochemical?CBC, CMP, lipase without pertinent abnormality. CT abd/pel?hepatomegaly; normal spleen; wall thickening of stomach antrum, ?gastritis; colonic diverticulosis; scattered mesenteric, cecal, periappendiceal and periaortic lymph nodes seen, ?mesenteric adenitis. *I established 08.17.22 as ED follow up with continued symptoms as noted in ED. Prior to ED presentation she was having a persistent headache for which she utilizes ibuprofen 4-5 tabs every 8 hours to manage pain; symptoms started several hours after headache onset. Headaches have not been evaluated by a neurologist which she is open to establishing with. She does have a history of anorexia as a child. Her eating habits continue to be various with periods of anorexia with binge eating; does see counseling and is receptive to psychiatry services. ROS Const Constitutional: No anorexia, fatigue, fever(s), weight change or sleep problems Eyes Eyes: No change in vision ENT ENT: No abnormal hearing, difficulty swallowing, mouth lesions, tongue swelling or throat swelling Resp Respiratory: No cough or shortness of breath Cardio Cardiology: No chest pain at rest, chest pain with exertion, shortness of breath or dyspnea on exertion Gastro GI: No difficulty swallowing Genitourinary-Female: No difficulty urinating or burning urination Musc Musculoskeletal: No joint pain, joint swelling, muscle weakness or decreased muscle mass Skin Skin: No hair loss in leg, yellowing of the eye, itchy eyes, rash, skin ulcer or skin swelling Neuro Neurology: No abnormal hearing, abnormal movements, confusion, unsteady gait/balance or memory loss Psych Psychiatric: No anxiety, No confusion and No memory loss Endo Endocrine: No fatigue or weight change Aller/Imm Allergy/Immunologic: No itchy eyes, throat swelling or tongue swelling Mina/Lymp Hematologic/Lymphatic: No easy bleeding, easy bruising or enlarged lymph nodes Exam Const General: cooperative and comfortable Nutritional Appearance: average body habitus and well nourished HENMT Head: normal to inspection Ears: hearing grossly normal bilaterally Nose: external nose normal Face and sinus: normal facial exam Mouth: oral mucosae normal Throat: posterior oropharynx normal Eyes General: appearance normal, both eyes and all related structures Neck Neck: normal visual inspection Chest Chest palpation & inspection: normal inspection of the chest and normal palpation of entire chest wall Resp Effort & Inspection: normal respiratory effort Auscultation: Bilateral: Clear to Auscultation Cardio Palpation: normal PMI Rate: regular rate Rhythm: regular rhythm GI Inspection: normal to inspection Auscultation: normal bowel sounds Percussion: normal to percussion Palpation: no hepatosplenomegaly Skin General: no rashes or lesions noted Neuro General: patient alert Extrem General: normal to inspection Psych Affect: normal affect Quality Reporting Tobacco Screening ([facility] 138) Smoking Status: Never smoker Assessment and Plan Assessment and Plan (1) Nausea: ?Status:?Acute ?Plan: The differential diagnosis for her nausea does include silent gastroesophageal reflux disease with possible gastroparesis as she does have a lot of food that was seen on her CT scan of the abdomen pelvis.? Also different diagnosis does include sliding hiatal hernia, severe erosive esophagitis, eosinophilic es ophagitis, NSAID induced gastropathy or gastritis.? Also in the differential diagnosis does include peptic ulcer disease.? She will undergo an upper endoscopy to evaluate upper GI tract.? We will start her on pantoprazole therapy of 40 mg once a day and she will get a gastric emptying study along with biochemical work-up for any possible autoimmune disease that may be contributing to her symptoms. (2) Diarrhea: ?Status:?Acute ?Plan: Her diarrhea does sound like accelerated gastrocolic reflex, bile induced gastritis, exocrine pancreatic insufficiency and less likely gluten or not gluten sensitivity.? After she undergoes an upper endoscopy we will have a better evaluation of her upper GI tract.? She will also need stool studies in order to evaluate her for any secretory diarrhea. (3) Abdominal pain: ?Status:?Acute ? ? ? Orders: Orders Vitamin D,25 Hydroxy TodayJ R10.9 - Unspecified abdominal pain ? Vitamin B12 Today R10.9 - Unspecified abdominal pain ? CRP Today R10.9 - Unspecified abdominal pain ? LDH Today R10.9 - Unspecified abdominal pain ? Erythrocyte Sed Rate Today R10.9 - Unspecified abdominal pain ? Allergen, Rast Food Profile Today R10.9 - Unspecified abdominal pain ? HENRY Comprehensive Panel Today R10.9 - Unspecified abdominal pain ? Vitamin D 1,25-Dihydroxy Today R10.9 - Unspecified abdominal pain ? ANCA Today R10.9 - Unspecified abdominal pain ? Celiac Disease Profile Today R10.9 - Unspecified abdominal pain ? Immunoglobulins G/A/M/E Today R10.9 - Unspecified abdominal pain ? RUFINA + Protein Elect, Serum TodayJ R10.9 - Unspecified abdominal pain ? Calprotectin, Stool Today R10.9 - Unspecified abdominal pain ? OVA+PARA w/Giardia EIA [id number] Today R10.9 - Unspecified abdominal pain ? CDIFF (PCR) Today R10.9 - Unspecified abdominal pain ? ENTERIC PATHOGEN PANEL STOOL Today K58.9 - Irritable bowel syndrome without diarrhea, R10.9 - Unspecified abdominal pain ? Stool Lactoferrin/WBC Today K58.9 - Irritable bowel syndrome without diarrhea, R10.9 - Unspecified abdominal pain ? Pancreatic Elastase, Fecal Today R10.9 - Unspecified abdominal pain ? I have examined the patient and the H&P has been reviewed. There are no clinical changes since date of exam.
[2022-10-26 08:31] VITALS: BP 140/72; PULSE 87; RESP 18; TEMP 37.3; O2SAT 99; BMI 45.7
[2022-10-26] MEDS: Lactated Ringers 1,000 ML 15 ML IV (08:41)
--- NOTE | 2022-10-26 09:15 | IMM_PTH ---
PATIENT: NAIN ESCOBEDO #:[id number] LOC: EN U#:[id number] AGE/SX: 32/F ROOM: RE10/26/[address]: Dr. Derian Washburn DO : 1990 BED: DIS: 10/26/2022 SPEC #: [id number] RECD: 10/26/22 13:28 STATUS: ERROL REKiesha #: [id number] MILES: 10/26/22 09:[address]: Derian Washburn DEPT: IMMUNOHISTOCHEMISTRY RECD BY: Nicol Castellanos ENTERED: 10/26/22 13:28 SP TYPE: IMMUNO OTHR DR: Danitza Primary Care Phys Tissues: B - Stomach, NOS Procedures: H Pylori (initial) PHYSICIAN & INSTITUTION [place] [id number] SPECIMEN INFORMATION: Tissue Source: B ? Gastric body Clinical Info: Nausea, diarrhea Specimen Number: [id number] CPT code: 40428 METHODOLOGY: Deparaffinized sections of prefer/formalin-fixed tissue or PAP/DQ stained slides are incubated with monoclonal/polyclonal antibodies/oligonucleotide probes. Localization is made via biotin free immunoperoxidase method. Appropriate controls are performed and reacted as expected. Results on target cell population are indicated in the following table: RESULTS: ANTIBODY / CLONE RESULT Block B H Pylori (polyclonal) negative These tests were developed and their performance characteristics determined by [facility]. They may not have been cleared or approved by the U.S. Food and Drug Administration. The FDA has determined that such clearance or approval is not necessary. The above immunohistochemical/dualISH markers are ordered and reviewed by the Pathologist. INTERPRETATION: B. Gastric body, biopsy: Negative for Helicobacter pylori organisms. AM:josette 10/27/2022
--- NOTE | 2022-10-26 09:15 | EGD_PTH ---
PATIENT: NAIN ESCOBEDO #:[id number] LOC: EN U#:[id number] AGE/SX: 32/F ROOM: RE10/26/[address]: Dr. Derian Washburn DO : 1990 BED: DIS: 10/26/2022 SPEC #: [id number] RECD: 10/26/22 10:32 STATUS: ERROL PURVIS #: [id number] MILES: 10/26/22 09:[address]: Derian Washburn DEPT: SURGICAL PATHOLOGY RECD BY: Santa Vu ENTERED: 10/26/22 11:46 SP TYPE: EGD BIOPSY OT DR: Danitza Primary Care Phys Tissues: A - Duodenum, NOS B - Gastric mucous membrane C - Esophagus, NOS Procedures: Special Stain Group II Surgery Specimen Level IV Alcian Blue/PAS (control) HEADER OPERATION[place] [place] PRE-OP DIAGNOSIS: Nausea, diarrhea TISSUE SUBMITTED: A ? Duodenum biopsy, B ? Gastric body biopsy for H. pylori and path, C ? Distal esophagus biopsy MICROSCOPIC DIAGNOSIS A. Duodenum, biopsy: No pathologic change. B. Gastric body, biopsy: Chronic gastritis. See comment. C. Distal esophagus, biopsy: Gastroesophageal junctional mucosa with mild chronic inflammation. No evidence of goblet cell metaplasia. See comment. AM:josette 10/27/2022 COMMENT B. The results of immunohistochemistry for Helicobacter pylori will be reported separately ([id number]). C. Alcian blue/PAS stain with matched control supports the above diagnosis. MICROSCOPIC DESCRIPTION Slides are reviewed. GROSS DESCRIPTION A - Received in fixative is one container labeled with the patient's name and designated duodenum biopsy. The specimen consists of multiple irregular fragments of light leung soft tissue that in aggregate measure 1.2 x 0.3 x 0.1 cm. The specimen is totally submitted in one cassette. B - Received in fixative is one container labeled with the patient's name and designated gastric antrum biopsy. The specimen consists of multiple irregular fragments of light leung soft tissue that in aggregate measure 1.5 x 0.3 x 0.1 cm. The specimen is totally submitted in one cassette. C - Received in fixative is one container labeled with the patient's name and designated distal esophagus biopsy. The specimen consists of multiple irregular fragments of light leung soft tissue that in aggregate measure 1.0 x 0.3 x 0.1 cm. The specimen is totally submitted in one cassette. / SJ:rg 10/26/2022 TC:3 CPT: 80673 x3, 94649
[2022-10-26 09:42] VITALS: BP 117/72; BP 140/72; PULSE 82; RESP 16; TEMP 37.4; O2SAT 97
--- NOTE | 2022-10-26 09:43 | OP.CCLET_ITS ---
10/26/2022 No Primary Care Physician Re : [facility] This procedure was performed on Wednesday, October 26, 2022. My impressions and recommendations are as follows: Impressions : - Z-line irregular, 37 cm from the incisors. Biopsied. - Erythematous mucosa in the gastric body and antrum. Biopsied. - Chronic duodenitis. Biopsied. Recommendations : - Discharge patient to home. - Resume previous diet. - Continue present medications. - Await pathology results. My findings are described in the full procedure note, which is enclosed. If I can be of further assistance, please feel free to contact me at . Sincerely, Derian Washburn, 10/26/2022 9:43:32 AM This report has been signed electronically.
--- NOTE | 2022-10-26 09:43 | OP.EGD_ITS ---
Patient Name: Kanchan Linda Procedure Date: 10/26/2022 9:23 AM Date of : 1990 Age: 32 Procedure: Upper GI endoscopy Indications: Epigastric abdominal pain Providers: Derian Washburn DO Medicines: Monitored Anesthesia Care Patient Profile: This is a 32 year old female. Refer to note in patient chart for documentation of history and physical. Patient has symptoms of chronic abdominal cramping and chronic epigastric abdominal pain. Complications: No immediate complications. Procedure: Pre-Anesthesia Assessment: - Prior to the procedure, a History and Physical was performed, and patient medications and allergies were reviewed. The patient is competent. The risks and benefits of the procedure and the sedation options and risks were discussed with the patient. All questions were answered and informed consent was obtained. Patient identification and proposed procedure were verified by the physician in the pre-procedure area. Mental Status Examination: alert and oriented. Airway Examination: normal oropharyngeal airway and neck mobility. Respiratory Examination: clear to auscultation. CV Examination: normal. Prophylactic Antibiotics: The patient does not require prophylactic antibiotics. Prior Anticoagulants: The patient has taken no previous anticoagulant or antiplatelet agents. After reviewing the risks and benefits, the patient was deemed in satisfactory condition to undergo the procedure. The anesthesia plan was to use minimal sedation / analgesia (anxiolysis). Immediately prior to administration of medications, the patient was re-assessed for adequacy to receive sedatives. The heart rate, respiratory rate, oxygen saturations, blood pressure, adequacy of pulmonary ventilation, and response to care were monitored throughout the procedure. The physical status of the patient was re-assessed after the procedure. After obtaining informed consent, the endoscope was passed under direct vision. Throughout the procedure, the patient's blood pressure, pulse, and oxygen saturations were monitored continuously. The Endoscope was introduced through the mouth, and advanced to the second part of duodenum. The upper GI endoscopy was accomplished without difficulty. The patient tolerated the procedure well. Scope In: 9:32:58 AM Scope Out: 9:37:25 AM Total Procedure Duration Time 0 hours 4 minutes 27 seconds Findings: The Z-line was irregular and was found 37 cm from the incisors. Biopsies were taken with a cold forceps for histology. Verification of patient identification for the specimen was done. Estimated blood loss was minimal. Patchy mildly erythematous mucosa without bleeding was found in the gastric body and in the gastric antrum. Biopsies were taken with a cold forceps for histology. Verification of patient identification for the specimen was done. Estimated blood loss was minimal. Patchy mild inflammation characterized by congestion (edema) was found in the duodenal bulb. Biopsies were taken with a cold forceps for histology. Verification of patient identification for the specimen was done. Estimated blood loss was minimal. Impression: - Z-line irregular, 37 cm from the incisors. Biopsied. - Erythematous mucosa in the gastric body and antrum. Biopsied. - Chronic duodenitis. Biopsied. Recommendation: - Discharge patient to home. - Resume previous diet. - Continue present medications. - Await pathology results. Procedure Code(s): --- Professional --- 19989, Esophagogastroduodenoscopy, flexible, transoral; with biopsy, single or multiple CPT copyright 2017 [employer]. All rights reserved. The codes documented in this report are preliminary and upon medical records coder review may be revised to meet current compliance requirements. Derian Washburn DO 10/26/2022 9:43:32 AM This report has been signed electronically. Number of Addenda: 0 Note Initiated On: 10/26/2022 9:23 AM
[2022-10-26 09:50] VITALS: BP 127/78; BP 140/72; PULSE 86; RESP 16; O2SAT 97
[2022-10-26 09:55] VITALS: BP 123/65; BP 140/72; PULSE 82; RESP 16; O2SAT 96
[2022-10-26 10:00] VITALS: BP 135/73; BP 140/72; PULSE 84; RESP 16; TEMP 36.6; O2SAT 95
[2022-10-26 10:22] VITALS: BP 140/72
== END 2022-10-26 10:36 | disposition home or self-care (01) ==
LOC: EN 08:12 → AC 08:14
PROVIDERS: Referring Provider Internal Medicine Gastroenterology; Visit Provider Internal Medicine Gastroenterology
PROC: 0DJ08ZZ Inspection of Upper Intestinal Tract, Via Natural or Artificial Opening Endoscopic (ICD-10-PCS; CPT 43235; principal; 2022-10-26 09:10)
DX: K29.80 Duodenitis without bleeding (principal); R19.7 Diarrhea, unspecified; K58.9 Irritable bowel syndrome, unspecified; R10.9 Unspecified abdominal pain; K29.50 Unspecified chronic gastritis without bleeding
CPT/HCPCS: 43239; 88305; 88313; 88342; J7120; J2405

== ENCOUNTER → 2023-01-20 | Outpatient (CLI) | payer BC, SELFPAY ==
--- NOTE | 2023-01-20 06:41 | MRI_ITS ---
STUDY: MRI BRAIN WITH AND WITHOUT CONTRAST REASON FOR EXAM: Female, 32 years old. Daily migraine headaches; cerebral palsy TECHNIQUE: Standardized multiplanar fat and water weighted pulse sequences were obtained. IV 23ml clariscan was administered for the contrast portion of the examination. COMPARISON: None. FINDINGS: Normal size of the ventricles and extra-axial spaces for the patient''s age. Normal white matter tracts of the supratentorial brain. There is no evidence for recent intracranial ischemia or other cause of cytotoxic edema on diffusion weighted imaging (DWI). Normal T2* images of the brain without demonstrated susceptibility artifact. There is no demonstrated hemosiderin stain. Normal bilateral basal ganglia. Normal thalami. There is no extra-axial fluid accumulation. Normal flow voids within the major intracranial circulation suggesting patency by spin echo criteria. Normal venous enhancement. There is no enhancing intra-axial or extra-axial abnormality. Normal dural enhancement. Normal sella turcica, pituitary gland, infundibular stalk, optic chiasm and hypothalamus. Normal tectal plate and pineal gland. Normal midbrain, ernie and medulla. Normal cerebellum. Normal basal cisterns. Normal bilateral temporal bones. Normal bilateral internal auditory canals. Orbits are within normal limits. Normal visualized paranasal sinuses. Normal calvarium and skull base. Normal visualized upper cervical spine. MRI/Brain W/WO Contrast IMPRESSION: Normal unenhanced and enhanced MRI of the brain. Electronically Signed: Mario Salazar DO at 23:23 EDT ,
--- NOTE | 2023-01-20 06:41 | MRI_ITS ---
EXAM: MR LUMBAR SPINE WITHOUT INTRAVENOUS CONTRAST CLINICAL INDICATION: Low back pain; cerebral palsy, paralysis from waist down at times, intermittent numbness rt side TECHNIQUE: Multiplanar and multisequence MR images of the lumbar spine without intravenous contrast. COMPARISON: No relevant prior studies available. FINDINGS: Slightly limited due to patient motion on several pulse sequences. VERTEBRAE: Unremarkable. Vertebral body heights are preserved. Normal vertebral bodies and posterior elements. Normal alignment. No spondylolisthesis. There is preservation of the normal lumbar lordosis. SPINAL CORD: Unremarkable. Normal position and signal intensity of the conus medullaris. SOFT TISSUES: Unremarkable. DISCS/SPINAL CANAL/NEURAL FORAMINA: T12-L1: Normal disc height and morphology. Normal bilateral facet joints. Normal central canal. Normal bilateral lateral recesses. Normal intervertebral neural foramina. L1-2: Normal disc height and morphology. Normal bilateral facet joints. Normal central canal. Normal bilateral lateral recesses. Normal intervertebral neural foramina. L2-3: Normal disc height and morphology. Normal bilateral facet joints. Normal central canal. Normal bilateral lateral recesses. Normal intervertebral neural foramina. L3-4: Normal disc height and morphology. Normal bilateral facet joints. Normal central canal. Normal bilateral lateral recesses. Normal intervertebral neural foramina. L4-5: Normal disc height and morphology. Normal bilateral facet joints. Normal central canal. Normal bilateral lateral recesses. Normal intervertebral neural foramina. L5-S1: Normal disc height and morphology. Normal bilateral facet joints. Normal central canal. Normal bilateral lateral recesses. Normal intervertebral neural foramina. MRI/Spine Lumbar (Routine) IMPRESSION: Unremarkable MRI of the lumbar spine. Electronically Signed: Emily Goodson MD at 17:23 EDT Reading Location ID and State: [id number] / Tel , Service support ,
[2023-01-20 09:34] LABS: Hematocrit 43.1 % (37-47); Hemoglobin 13.9 g/dL (12.0-15.0); Mean Corp Hgb Conc 32.3 g/dL (32-36); Mean Corpuscular Hgb 26.8 pg (27.0-32.0); Mean Corpuscular Volume 83.2 fL (81-99); Mean Platelet Vol. 11.9 fl (6.2-12.0); Platelet Count 219 K/mm3 (150-450); RBC Distribution Width CV 14.2 % (11.6-14.6); RBC Distribution Width SD 42.7 fl (35.1-43.9); Red Blood Count 5.18 M/mm3 (4.2-5.4); White Blood Count 9.4 K/mm3 (4.4-11.0)
[2023-01-20 10:49] LABS: ALB/GLOB Ratio 1.1 RATIO (0.9-2.4); AST(SGOT) 9 U/L (15-37); Alanine Aminotransfer ALT/SGPT 29 U/L (13-56); Albumin, Serum 3.5 g/dL (3.2-5.0); Alkaline Phosphatase 69 U/L (45-117); Anion Gap 7 (5-15); BUN 15 mg/dL (7-18); BUN/Creat Ratio 18.9 RATIO (10-20); Calcium,Total 8.7 mg/dL (8.5-10.1); Chloride 109 mmol/L (98-107); Creatinine, Serum 0.79 mg/dL (0.55-1.02); EST Glomerular Filtration Rate 90 mL/min (>60); Est Glom Filt Rate - Afr Amer 109 mL/min (>60); Globulin 3.3 g/dL (2.2-4.2); Glucose 100 mg/dL (74-106); Magnesium 2.2 mg/dL (1.6-2.6); Potassium 3.5 mmol/L (3.5-5.1); Protein, Total 6.8 g/dL (6.4-8.2); Sodium Level 139 mmol/L (136-145); Thyroid Stim Hormone (TSH) 1.97 uIU/mL (0.358-3.74)
[2023-01-21 04:07] LABS: Cancer Antigen 125 17.1 U/mL (0.0-38.1); Carbohydrate AG 19-9 5 U/mL (0-35); Carcinoembryonic Antigen 0.9 ng/mL (0.0-4.7)
== END | disposition home or self-care (01) ==
PROVIDERS: Internal Medicine Gastroenterology; Referring Provider Psychiatry & Neurology Neurology; Visit Provider Psychiatry & Neurology Neurology
DX: G80.9 Cerebral palsy, unspecified (principal); G43.009 Migraine without aura, not intractable, without status migrainosus; M54.50 Low back pain, unspecified; Z80.0 Family history of malignant neoplasm of digestive organs
CPT/HCPCS: 36415; 70553; 72148; 80053; 82378; 83735; 84443; 85027; 86301; 86304; A9575

== ENCOUNTER 2023-04-18 17:52 | Emergency (ER) | payer BC, SELFPAY ==
[2023-04-18 17:53] VITALS: BP 135/83; PULSE 92; RESP 18; TEMP 36.6; O2SAT 96; BMI 46.7
[2023-04-18 18:29] VITALS: PULSE 67; RESP 14; O2SAT 99
--- NOTE | 2023-04-18 18:33 | EX.ED.DYSGE1 ---
HPI History of Present Illness Chief Complaint: Sore Throat Informant: patient Narrative Narrative: 32-year-old female presenting to the emergency department with the chief complaint of sore throat. Patient states that she woke this morning with a sore throat. She went to urgent care was concerned about a tonsillar abscess. She denies any fever or cough. States that she frequently gets strep throat. She is most recently has had pain in a right lower molar that has been decayed for some time. She had surgery scheduled but then she got COVID. [facility] Medical History Back pain Cerebral palsy Diverticulosis Gastric reflux History of pain when walking Loss of consciousness Migraine headache Non-smoker PDA (patent ductus arteriosus) Shortness of breath on exertion Sleep apnea Home Medications omega-3 fatty acids 1,000 mg PO DAILY 10/19/22 [History Last Taken Unknown] ondansetron HCl 4 mg tablet 4 mg PO TID PRN nausea and vomiting #90 tabs 12/27/22 [Rx Last Taken Unknown] sumatriptan succinate 50 mg tablet 50 mg PO .COMPLEX #9 tabs 12/27/22 [Rx Last Taken Unknown] topiramate 50 mg tablet 50 mg .Route .COMPLEX #60 tabs 12/27/22 [Rx Last Taken Unknown] Allergy/AdvReac Type Severity Reaction Status Date / Time doxylamine [From Diclegis] AdvReac Mild SYNCOPE/THROAT Verified 04/18/23 17:53 TIGHTNESS pyridoxine [From Diclegis] AdvReac Mild SYNCOPE/TIGHT Verified 04/18/23 17:53 THROAT Surgical History Hx of tubal ligation Social History household members: none Smoking Status: Never smoker substance use type: does not use ROS ROS ED Constitutional Constitutional ED: Denies chills, fever(s) or weight loss Eyes Eyes: Denies change in vision or diplopia ENT ENT ED: Reports ear pain and sore throat; Denies rhinorrhea Cardiovascular Cardiovascular: Denies chest pain, orthopnea, palpitations or racing heartbeat Respiratory/Chest Respiratory/Chest: Denies cough, dyspnea or orthopnea Gastrointestinal Gastrointestinal: Denies abdominal pain, diarrhea, nausea or vomiting Genitourinary Genitourinary ED: Denies dysuria, hematuria or urinary frequency Musculoskeletal Musculoskeletal: Denies arthralgias or myalgias Integumentary Denies abscess or rash Neurologic Neurologic: Denies headache(s) or weakness Psychiatric Psychiatric: Denies anxiety, depression, suicidal ideation or suicidal thoughts Endocrine Endocrinology: Denies polydipsia, polyphagia or polyuria Allergic/Immunologic Allergic/Immunologic ED: Denies mouth swelling, tongue swelling or urticaria EXAM Physical Exam Const Vital Signs: 04/18/23 17:53 04/18/23 18:29 Temperature 98 F Temperature Source Temporal Pulse Rate 92 67 Respiratory Rate 18 14 Blood Pressure 135/83 H Blood Pressure Mean 100 Pulse Ox 96 99 Oxygen Delivery Method Room Air Room Air Positive well nourished and well developed General Appearance ED: well developed HEENT Reports normocephalic, head/scalp atraumatic and moist mucous membranes HEENT Narrative: No hot potato voice. There is bilateral tonsillar enlargement right greater than left with erythema and exudates. No palatal petechiae. No deviation of the uvula. I do not appreciate a peritonsillar or retropharyngeal abscess. She is handling her secretions normal. No focal dental abscess. Eyes PERRL and EOMs intact bilaterally Neck no lymphadenopathy, supple and no JVD Resp normal respiratory effort and clear to auscultation bilaterally Cardio regular rate, regular rhythm and no murmurs GI normal to inspection, nondistended, normoactive bowel sounds and non-tender Palpation: soft Back/Spine no CVA tenderness and normal ROM Extremity normal to inspection General Extremety ED: Negative for edema General Extremity: Negative for edema Neuro oriented x3 and CN's II-XII intact bilaterally Sensorium / Orientation: alert Motor Exam: strength 5/5 throughout Psych mental status grossly normal Mood & Affect: Negative for depressed or tearful Skin no rashes or lesions noted and no wounds MDM MDM MDM Narrative Medical decision making narrative: Throat culture will be obtained. We talked about mono testing and its utility in the first week. We will place her on antibiotics. Have her follow-up if needed return if worsening. Differential includes peritonsillar abscess, retropharyngeal abscess tonsillitis, dental abscess with extension Geovani's angina History & Record Review Discussion w/independent historian: Patient Discharge Plan Triage Chief Complaint: Sore Throat ED Provider: Greg Gonzales Dx/Rx/DC Orders Prescriptions: No Action sumatriptan succinate 50 mg tablet 50 mg PO .COMPLEX Qty: 9 5RF Rx Instructions: 50 mg PO every two hours as needed for headache up to two tablets per day topiramate 50 mg tablet 50 mg .ROUTE .COMPLEX Qty: 60 5RF Rx Instructions: Take 1/2 tablet orally twice daily for 1 week then 1 tablet twice daily thereafter. ondansetron HCl 4 mg tablet 4 mg PO TID PRN (Reason: nausea and vomiting) Qty: 90 5RF [place] 3 Fish Oil Capsule 1,000 mg PO DAILY Primary Care Provider: Care Physician,No Primary Referrals: Care Physician,No Primary [Primary Care Provider] -
[2023-04-18] MEDS: Amox/Clavulanate 875 MG Tablet PO (18:43)
== END 2023-04-18 18:50 | disposition home or self-care (01) ==
LOC: ED 18:48
PROVIDERS: Emergency Provider Emergency Medicine; Visit Provider Emergency Medicine
DX: J02.9 Acute pharyngitis, unspecified (principal); G43.909 Migraine, unspecified, not intractable, without status migrainosus; Z98.51 Tubal ligation status
CPT/HCPCS: 87070; 99282

== ENCOUNTER 2023-05-21 19:13 | Emergency (ER) | payer BC, SELFPAY ==
[2023-05-21 19:13] VITALS: BP 160/95; PULSE 86; RESP 18; TEMP 36.4; O2SAT 97; BMI 47.7
--- NOTE | 2023-05-21 19:37 | ED.VIS.DENTA ---
HPI History of Present Illness Chief Complaint: Dental Informant: patient Onset/Context/Timing Onset: Today Context: Sudden Onset Timing: Continuous Quality: Aching, throbbing Location: Right lower molar Worsened by: Eating, drinking Relieved by: - (Nothing) Associated Symptoms Assocated Symptom - Dental: cold sensitivity and hot sensitivity; Negative for fever, jaw swelling or face swelling Narrative Narrative: Patient presents with right lower dental pain that began today. Patient states she knows she has a cavity and was scheduled to have the tooth pulled in January. Patient states she developed COVID at that time and had to reschedule her dental extraction. Patient states she is now scheduled for next March. Patient states that today the pain became worse. Patient describes it as aching and throbbing. Patient states it is worse with eating and drinking. Patient admits to some hot and cold sensitivity. Patient denies any fevers or chills. Patient states nothing seems to help with the pain. [facility] Medical History Back pain Cerebral palsy Diverticulosis Gastric reflux History of pain when walking Loss of consciousness Migraine headache Non-smoker PDA (patent ductus arteriosus) Shortness of breath on exertion Sleep apnea Home Medications topiramate 50 mg tablet 50 mg PO BID #60 tabs 05/04/23 [Rx Last Taken Unknown] penicillin V potassium 500 mg tablet 500 mg PO 4X/DAY #40 tabs 05/21/23 [Rx Last Taken Unknown] Allergy/AdvReac Type Severity Reaction Status Date / Time doxylamine [From Diclegis] AdvReac Mild SYNCOPE/THROAT Verified 05/21/23 19:13 TIGHTNESS pyridoxine [From Diclegis] AdvReac Mild SYNCOPE/TIGHT Verified 05/21/23 19:13 THROAT Surgical History Hx of tubal ligation Social History household members: none Smoking Status: Never smoker substance use type: does not use ROS ROS ED Constitutional Constitutional ED: Denies chills or fever(s) Eyes Eyes: Denies blurry vision or change in vision ENT ENT ED: Reports rhinorrhea and sore throat Cardiovascular Cardiovascular: Denies chest pain or palpitations Respiratory/Chest Respiratory/Chest: Denies cough or dyspnea Gastrointestinal Gastrointestinal: Reports nausea; Denies vomiting Genitourinary Genitourinary ED: Denies dysuria or hematuria Musculoskeletal Musculoskeletal: Denies back pain or neck pain Integumentary Denies abscess or rash Neurologic Neurologic: Denies headache(s) or weakness Allergic/Immunologic Allergic/Immunologic ED: Denies mouth swelling or urticaria EXAM Physical Exam Const Vital Signs: 05/21/23 19:13 Temperature 97.6 F L Temperature Source Temporal Pulse Rate 86 Respiratory Rate 18 Blood Pressure 160/95 H Blood Pressure Mean 116 Pulse Ox 97 Positive well nourished, well developed and obese General Appearance ED: well developed and NAD Nutritional Appearance: obese HEENT HEENT Narrative: There is a dental carry noted over the right lower second molar. There is also a large dental carry noted over the right upper first molar. There is mild gingival edema around the right lower second molar. There is no fluctuance. There is no discharge or drainage noted. Mouth ED: Yes oral and palatal mucosa normal Mouth: oral and palatal mucosa normal Teeth and Gingiva: caries and gingiva abnormal Positive for gingival edema Throat: posterior oropharynx normal Neck supple and no JVD General: Negative for anterior neck swelling, tenderness or submandibular swelling Lymph Lymphatic: no lymphadenopathy noted Neuro oriented x3, CN's II-XII intact bilaterally, moves all extremities, no focal motor deficits and no sensory deficits noted Sensorium / Orientation: alert Psych mental status grossly normal MDM MDM MDM Narrative Medical decision making narrative: Patient was advised that she most likely has infected dental caries. Patient was given a prescription for Pen-Vee K. Patient was given her first dose here. Patient was instructed to take Tylenol or ibuprofen as needed for pain. Patient was instructed to follow-up with her dentist in 5 to 7 days. Patient was instructed return if worse in any way. Patient understood and was agreeable with the plan. All questions were answered. Discharge Plan Triage Chief Complaint: Dental ED Provider: Aureliano Walls Dx/Rx/DC Orders Clinical Impression: Infected dental caries, Cerebral palsy Instructions: ED Dental Cavity Prescriptions: New penicillin V potassium 500 mg tablet 500 mg PO 4X/DAY Qty: 40 0RF No Action topiramate 50 mg tablet 50 mg PO BID Qty: 60 11RF Primary Care Provider: Care Physician,No Primary Referrals: Care Physician,No Primary [Primary Care Provider] - Dentist,Your [STAFF PHYSICIAN] - 1-2 Weeks Disposition Disposition: Home, Self Care
[2023-05-21] MEDS: Penicillin Vk 250 MG Tablet 500 MG PO (20:08)
[2023-05-21] MEDS: Acetaminophen 500 MG Tablet 1000 MG PO (20:08)
== END 2023-05-21 20:37 | disposition home or self-care (01) ==
PROVIDERS: Emergency Provider Emergency Medicine; Visit Provider Emergency Medicine
DX: K02.9 Dental caries, unspecified (principal); G80.9 Cerebral palsy, unspecified; E66.9 Obesity, unspecified
CPT/HCPCS: 99283

== ENCOUNTER 2024-07-03 21:23 | Emergency (ER) | payer BC, SELFPAY ==
[2024-07-03 21:25] VITALS: BP 141/97; PULSE 114; RESP 18; TEMP 36.9; O2SAT 97; BMI 46.1
[2024-07-03] MEDS: Ondansetron 4 MG/2 ML Vial IV (22:03)
[2024-07-03] MEDS: 0.9% Normal Saline (1000mL) 1,000 ML 999 ML IV (22:03)
[2024-07-03 22:10] LABS: Mucous, Urine 0 SEEN /hpf (<or=2+)
[2024-07-03 22:14] LABS: Absolute Lymphocyte Count 0.43 X10^3/uL (0.83-4.51); Absolute Neutrophil Count 16.2 X10^3/uL (2.0-7.7); Basophil# 0.11 X10^3/uL; Basophil% 0.6 % (0-1); Eosinophil# 0.06 X10^3/uL; Eosinophils% 0.3 % (0-5); Hematocrit 48.7 % (37-47); Hemoglobin 16.2 g/dL (12.0-15.0); Lymphocyte # 0.43 X10^3/ul (0.83-4.51); Lymphocyte % 2.5 % (19-41); Mean Corp Hgb Conc 33.3 g/dL (32-36); Mean Corpuscular Hgb 27.2 pg (27.0-32.0); Mean Corpuscular Volume 81.7 fL (81-99); Mean Platelet Vol. 10.9 fl (6.2-12.0); Monocyte# 0.41 X10^3/uL; Monocyte% 2.4 % (0-10); NRBC Flagged by Analyzer 0 % (0-5); Neutrophil # 16.21 X10^3/uL (2.7-7.7); Neutrophil % 93.7 % (47-70); POSITIVE DIFFERENTIAL YES; Platelet Count 304 K/mm3 (150-450); RBC Distribution Width CV 13.7 % (11.6-14.6); RBC Distribution Width SD 40.1 fl (35.1-43.9); Red Blood Count 5.96 M/mm3 (4.2-5.4); White Blood Count 17.3 K/mm3 (4.4-11.0)
--- NOTE | 2024-07-03 22:14 | EX.ED.DYSGE1 ---
HPI History of Present Illness Chief Complaint: Cold Sx Narrative Narrative: 33-year-old female patient presents with multiple complaints, stating she is having nausea, vomiting, and diarrhea for the last 4 days. She has sick contacts in her kids who had norovirus. Additionally, she relates history that while she had her normal menses about a week ago, she started having vaginal bleeding and passing clots. She is bleeding is much as her normal menses. She has not passed clots in the past. She was unsure if this was normal for what was going on. Past medical history includes cerebral palsy and chronic migraines. She states that in the last day she has had 30-40 episodes of diarrhea and 30-48 episodes of vomiting. No hemoptysis, no exacerbating or alleviating factors. Past abdominal surgery includes laparoscopic bilateral tubal ligation. [facility] Medical History Back pain Migraine headache Loss of consciousness Diverticulosis Gastric reflux Non-smoker Sleep apnea Shortness of breath on exertion History of pain when walking Cerebral palsy PDA (patent ductus arteriosus) Home Medications ?Medication ?Instructions ?Recorded ?Last Taken ?Type topiramate 50 mg tablet 50 mg PO BID #60 tabs 05/04/23 Unknown Rx penicillin V potassium 500 mg 500 mg PO 4X/DAY #40 tabs 05/21/23 Unknown Rx tablet Allergy/AdvReac Type Severity Reaction Status Date / Time doxylamine (From Diclegis) AdvReac Mild SYNCOPE/THROAT Verified 07/03/24 21:28 TIGHTNESS pyridoxine (From Diclegis) AdvReac Mild SYNCOPE/TIGHT Verified 07/03/24 21:28 THROAT Surgical History Hx of tubal ligation Social History household members: none Smoking Status: Never smoker substance use type: does not use ROS ROS ED ROS Narrative Constitutional: Positive fever, no chills. HEENT: No sore throat. No neck pain. No loss of vision. No rhinorrhea. Cardiovascular: No chest pain. No palpitations. No pedal edema. Respiratory: No cough, no shortness of breath. Abdominal: Diffuse abdominal pain. Multiple episodes of nausea, vomiting, and diarrhea. Genitourinary: No dysuria. No hematuria. Positive vaginal bleeding, passage of clots. Musculoskeletal: No myalgias. No arthralgias. Neurologic: No dizziness. No lightheadedness. EXAM Physical Exam Narrative Exam Narrative: Afebrile. Vital signs noted. Nontoxic-appearing. Cardiovascular examination reveals a mild tachycardia. Lungs clear to auscultation bilaterally. Abdomen soft with minimal diffuse tenderness to palpation, no guarding or rebound, positive bowel sounds. Neurological examination is nonfocal and nonlateralizing. Const Vital Signs: 07/03/24 21:25 07/03/24 22:08 Temperature 98.4 F Temperature Source Temporal Pulse Rate 114 H Respiratory Rate 18 Respiratory Effort Normal Respiratory Pattern Normal Blood Pressure 141/97 H Blood Pressure Mean 111 Pulse Ox 97 Oxygen Delivery Method Room Air MDM MDM MDM Narrative Medical decision making narrative: Differential diagnosis includes but not limited to viral gastroenteritis versus pancreatitis versus colitis. I have lower suspicion for diverticulitis as she is having nausea and vomiting as well. I have lower concern for ectopic but think she may have more irregular vaginal bleeding. She will be bolused normal saline and administered ondansetron for her nausea and vomiting. I reviewed her initial CBC, she has a leukocytosis of 17.[address] of the abdomen pelvis. I have low suspicion for obstruction. She is slightly hemoconcentrated with a hemoglobin of 16.2 and hematocrit 48.7. Platelet count normal at 304. Serum is negative so I doubt ectopic . Urinalysis positive for 15 ketones with positive nitrites. There are 5-10 WBCs and 5-10 RBCs, but 5-10 squamous epithelial cells so I think is a contaminated specimen I do not feel antibiotics are indicated. In discussion with the patient, she has deferred pelvic examination and I think she is probably just having irregular bleeding. Her CMP and her lipase are currently pending as well as her also for CT scan. At this point in time, patient will be signed out to the oncoming physician, Dr. Brady Yadav, to check the CT scan and remaining laboratory work and make final disposition on this patient with nausea, vomiting, diarrhea, and a suspected gastroenteritis. She is in stable condition. History & Record Review Discussion w/independent historian: Patient Lab Data Attestation: I reviewed the patient's lab results. Labs: Laboratory Results - last 24 hr 07/03/24 07/03/24 21:55 22:04 WBC 17.3 H RBC 5.96 H Hgb 16.2 H Hct 48.7 H MCV 81.7 MCH 27.2 MCHC 33.3 RDW Std Deviation 40.1 RDW Coeff of Palomo 13.7 Plt Count 304 MPV 10.9 Immature Gran % (Auto) 0.500 Neut % (Auto) 93.7 H Lymph % (Auto) 2.5 L Clarke % (Auto) 2.4 Eos % (Auto) 0.3 Baso % (Auto) 0.6 Absolute Neuts (auto) 16.2 H Absolute Lymphs (auto) 0.43 L Nucleated RBC % 0 Serum , Qual NEGATIVE Urine Color Adri Urine Clarity Cloudy Urine pH 6.0 Ur Specific [place] 1.030 Urine Protein 100 H Urine Glucose (UA) Normal Urine Ketones 15 H Urine Occult Blood 250 H Urine Nitrite Positive H Urine Bilirubin 1 H Urine Urobilinogen 1 H Ur Leukocyte Esterase 100 H Urine RBC 5-10 SEEN Urine WBC 5-10 SEEN Ur Squamous Epith Cells 5-10 SEEN Urine Bacteria 1+ Urine Mucus 0 SEEN Discharge Plan Triage Chief Complaint: Cold Sx ED Provider: Romie Oliver Dx/Rx/DC Orders Prescriptions: No Action topiramate 50 mg tablet 50 mg PO BID Qty: 60 11RF penicillin V potassium 500 mg tablet 500 mg PO 4X/DAY Qty: 40 0RF Primary Care Provider: Sharon Bryson Referrals: Sharon Bryson MD [Primary Care Provider] - Print Language: Italian
[2024-07-03 22:15] LABS: Color, Urine Amber (Yellow); Glucose, Dipstick Normal (Normal); Ketone-Dipstick 15 mg/dl (Negative); Leukocyte Esterase-Dipstick 100 /ul (Negative); Nitrite-Dipstick Positive (Negative); Occult Blood-Urine 250 /ul (Negative); Protein-Dipstick 100 mg/dl (Negative); Urine Clarity Cloudy (Clear); Urine Urobilinogen 1 mg/dl (Normal)
[2024-07-03 22:18] LABS: Urine Bilirubin Dipstick 1 mg/dL (Negative)
--- NOTE | 2024-07-03 22:18 | CT_ITS ---
PROCEDURE: ABDOMEN/PELVIS W IV CONT ONLY REASON FOR EXAM: Abdominal pain diarrhea. TECHNIQUE: Abdomen and pelvis CT with intravenous contrast. No oral contrast. IV CONTRAST: COMPARISON: None. FINDINGS: Lung bases: Clear Liver: Diffuse fatty infiltration. Gallbladder: Unremarkable. Spleen: Unremarkable. Pancreas: Unremarkable. Adrenals: Unremarkable. Kidneys: Unremarkable. Bladder: Unremarkable. Reproductive Organs: Unremarkable. Bowel: Evaluation of the bowel loops are limited due to lack of oral contrast. Stomach is unremarkable. No inflammatory changes of the small bowel. Fluid-filled portions of the large bowel without dilatation, wall thickening or adjacent stranding. Scattered colonic diverticulosis. Appendix: Normal. Lymph nodes: No suspicious lymph node enlargement. Vasculature: Major vascular structures are unremarkable. Peritoneum / Retroperitoneum: No ascites. No free air. Bones: Unremarkable. CT/Abdomen/Pelvis W IV Cont ONLY IMPRESSION: Fluid-filled large bowel without wall thickening or adjacent stranding, finding s may represent enteritis. One or more dose reduction techniques were used (e.g., Automated exposure contr ol, adjustment of the mA and/or kV according to patient size, use of iterative reconstruction technique). Reading [facility]
[2024-07-03 22:26] LABS: Internal QC Validated? YES +Cl - CLEAR BKGD; Pregnancy, Serum, hCG Quali. NEGATIVE Negative
[2024-07-03 22:46] LABS: Red Blood Cells-Urine 5-10 SEEN /hpf (0-5); White Blood Cells 5-10 SEEN /hpf (0-5)
[2024-07-03 22:47] LABS: Bacteria 1+ /hpf (None Seen); Squamous Epithelial Cells - UA 5-10 SEEN /hpf (5-10)
[2024-07-03 22:57] LABS: AST(SGOT) 13 U/L (15-37); Alanine Aminotransfer ALT/SGPT 30 U/L (13-56); Albumin, Serum 4.5 g/dL (3.2-5.0); Alkaline Phosphatase 90 U/L (45-117); Anion Gap 10 (5-15); BUN 14 mg/dL (7-18); BUN/Creat Ratio 11.8 RATIO (10-20); Calcium,Total 10.1 mg/dL (8.5-10.1); Chloride 104 mmol/L (98-107); Creatinine, Serum 1.19 mg/dL (0.55-1.02); EST Glomerular Filtration Rate 56 mL/min (>60); Est Glom Filt Rate - Afr Amer 68 mL/min (>60); Estimated Creatinine Clearance 78.93 ml/min; Globulin 4.3 g/dL (2.2-4.2); Glucose 144 mg/dL (74-106); Lipase 28 U/L (73-393); Potassium 3.8 mmol/L (3.5-5.1); Protein, Total 8.8 g/dL (6.4-8.2); Sodium Level 134 mmol/L (136-145)
== END 2024-07-03 23:58 | disposition home or self-care (01) ==
PROVIDERS: Emergency Provider Emergency Medicine; PCP Family Medicine; Visit Provider Emergency Medicine
DX: K52.9 Noninfective gastroenteritis and colitis, unspecified (principal); Z98.51 Tubal ligation status; G43.909 Migraine, unspecified, not intractable, without status migrainosus; Z79.899 Other long term (current) drug therapy
CPT/HCPCS: 74177; 80053; 81001; 83690; 84703; 85025; 96361; 96374; 99283; Q9967; A4216; J2405

== ENCOUNTER 2024-07-06 22:31 | Emergency (ER) | payer BC, SELFPAY ==
[2024-07-06 22:32] VITALS: BP 152/85; PULSE 96; RESP 15; TEMP 36.2; O2SAT 98; BMI 46.8
--- NOTE | 2024-07-06 22:52 | EDS_ITS ---
HPI History of Present Illness Chief Complaint: Headache Narrative Narrative: Chief complaint and HPI: Headache. 33-year-old female with past medical history of migraines, anxiety, depression presents for evaluation of headache. History taken by patient as well as medical record. Patient states that she was seen in our emergency department on Monday for nausea, vomiting, diarrhea. She states that she was diagnosed with influenza A. She states the symptoms have improved accepted her headache. Patient states that she has had a headache since Monday. It is not the worst headache of her life. Was not sudden. Not related to trauma. She has tried Advil, Tylenol, caffeine, sumatriptan with little relief. She denies any photophobia or phonophobia. Denies any ear pain, neurological deficit, weakness, numbness or tingling, vision changes, neck pain. Patient states her headache is making it difficult to sleep which is why she presented today. On chart review, patient was seen for nausea, vomiting, diarrhea. She had a questionable urine. Negative test. CT abdomen pelvis that showed gastroenteritis. Patient did not have COVID, RSV, influenza testing therefore no reported history that she has influenza A. Review of systems: See HPI Medications: As listed on the chart Allergies: As listed on the chart PFSH: Per chart Vital signs: As listed on the chart. Reviewed. Physical exam: Gen: A&O x3, NAD Head: Normocephalic, atraumatic Eyes: No sclera icterus, conjunctiva clear, PERRL, EOMI ENT: TMs clear BL, moist mucous membranes, posterior oropharynx unremarkable, uvula midline, tonsils not enlarged, no tonsillar exudates no sinus tenderness, Neck: Trachea midline, No JVD, Full ROM, No meningismus CV: RRR, no murmurs, no peripheral edema Resp: Lungs CTA BL, no w/r/c GI: Abd soft, non-distended, non-tender, no r/r/g Musc: Full ROM, no deformity Skin: Warm, dry, no rash Neuro: Alert, oriented, grossly intact, sensation intact Psych: Cooperative, appropriate mood and affect [facility] Medical History Back pain Migraine headache Loss of consciousness Diverticulosis Gastric reflux Non-smoker Sleep apnea Shortness of breath on exertion History of pain when walking Cerebral palsy PDA (patent ductus arteriosus) Home Medications ?Medication ?Instructions ?Recorded ?Last Taken ?Type topiramate 50 mg tablet 50 mg PO BID #60 tabs Unknown Rx penicillin V potassium 500 mg 500 mg PO 4X/DAY #40 tab s 05/21/23 Unknown Rx tablet ondansetron 4 mg disintegrating 4 mg PO Q6H PRN nausea and 07/03/24 Unknown Rx tablet vomiting #7 tabs Allergy/AdvReac Type Severity Reaction Status Date / Time doxylamine (From Diclegis) AdvReac Mild SYNCOPE/THROAT Verified 07/06/24 22:32 TIGHTNESS pyridoxine (From Diclegis) AdvReac Mild SYNCOPE/TIGHT Verified 07/06/24 22:32 THROAT Surgical History Hx of tubal ligation Social History household members: none Smoking Status: Never smoker substance use type: does not use EXAM Physical Exam Const Vital Signs: 07/06/24 22:32 Temperature 97.1 F L Temperature Source Temporal Pulse Rate 96 Respiratory Rate 15 Blood Pressure 152/85 H Blood Pressure Mean 107 Pulse Ox 98 Oxygen Delivery Method Room Air MDM MDM MDM Narrative Medical decision making narrative: 33-year-old female with past medical history of migraines, anxiety, depression presents for evaluation of headache. Denies acute onset of headache reaching maximal intensity in under one hour. This is neither the worst headache that they have ever experienced, nor was the onset timed with exertional activity or trauma. Patient has not experienced unusual neck pain or stiffness, syncope, or near syncope. They deny numbness, tingling, or weakness of the extremities. They also deny personal history of intracranial hemorrhage (including SAH), aneurysm, or AV malformation. Patient is negative per [place] SAH rule. Differential di agnosis includes but is not limited to tension headache, migraine, sinus headache. I do not think any laboratory workup is needed at this time as patient just had this performed. She just had a negative test. She has not had intercourse since. Her tubes are also tied. Headache will be treated with NS bolus, Reglan, Toradol, Benadryl. She did have a questionable urinary tract infection therefore will repeat urine. On reevaluation, patient's headache has improved. Her will pick her up from the emergency department. Her urine is positive for blood, leuk esterase, and WBC as well as 2+ bacteria however this is a very dirty sample with multiple squamous epithelial cells. No nitrates. Patient states that she is ending her menstrual cycle which explains the blood. Given the multiple squamous epithelial cells will not treat for UTI at this time given patient is not having any dysuria, urinary frequency as well as her nausea, vomiting, diarrhea has improved. [facility] er I will send it for urine culture. She confirmed understanding. Follow-up with PCP. Patient stable to discharge home. Impression: 1. Headache unspecified 2. History of migraines Lab Data Labs: Laboratory Results - last 24 hr 07/06/24 23:13 Urine Color Yellow Urine Clarity Cloudy Urine pH 6.0 Ur Specific [place] 1.020 Urine Protein 15 H Urine Glucose (UA) Normal Urine Ketones Negative Urine Occult Blood 150 H Urine Nitrite Negative Urine Bilirubin Negative Urine Urobilinogen 1 H Ur Leukocyte Esterase 100 H Urine RBC 50-100 SEEN Urine WBC 25-50 SEEN Ur Squamous Epith Cells 10-25 SEEN Ur Transition Epith Cell 0-5 SEEN Urine Bacteria 2+ Urine Mucus 0 SEEN Discharge Plan Triage Chief Complaint: Headache ED Provider: Jamie Phillip Dx/Rx/DC Orders Clinical Impression: Headache Instructions: ED Headache Unspecified Prescriptions: No Action topiramate 50 mg tablet 50 mg PO BID Qty: 60 11RF penicillin V potassium 500 mg tablet 500 mg PO 4X/DAY Qty: 40 0RF ondansetron 4 mg tablet,disintegrating 4 mg PO Q6H PRN (Reason: nausea and vomiting) Qty: 7 0RF Primary Care Provider: Sharon Bryson Referrals: Sharon Bryson MD [Primary Care Provider] - 3-5 Days Activity Restrictions/Additional Instructions: You received Toradol here in the emergency department. No ibuprofen or Advil for 8 hours. Okay for Tylenol. Return back to the ED if symptoms change or worsen. Follow-up with your primary care physician. Print Language: Norwegian Disposition Disposition: Home, Self Care
[2024-07-06] MEDS: 0.9% Normal Saline (1000mL) 1,000 ML 1000 ML IV (23:15)
[2024-07-06] MEDS: Ketorolac 15 MG/ML Vial IV (23:17)
[2024-07-06] MEDS: DiphenhydrAMINE 50 MG/ML Syringe 25 MG IV (23:17)
[2024-07-06] MEDS: Metoclopramide 10 MG/2 ML Vial 5 MG IV (23:18)
[2024-07-06 23:26] LABS: Mucous, Urine 0 SEEN /hpf (<or=2+)
[2024-07-06 23:34] LABS: Color, Urine Yellow (Yellow); Glucose, Dipstick Normal (Normal); Ketone-Dipstick Negative (Negative); Leukocyte Esterase-Dipstick 100 /ul (Negative); Nitrite-Dipstick Negative (Negative); Occult Blood-Urine 150 /ul (Negative); Protein-Dipstick 15 mg/dl (Negative); Urine Bilirubin Dipstick Negative (Negative); Urine Clarity Cloudy (Clear); Urine Urobilinogen 1 mg/dl (Normal)
[2024-07-06 23:44] LABS: Red Blood Cells-Urine 50-100 SEEN /hpf (0-5); White Blood Cells 25-50 SEEN /hpf (0-5)
[2024-07-06 23:45] LABS: Bacteria 2+ /hpf (None Seen); Squamous Epithelial Cells - UA 10-25 SEEN /hpf (5-10); Transitional Epithelial - Ur 0-5 SEEN /hpf (0-5)
[2024-07-07 00:19] VITALS: BP 152/85; PULSE 96; RESP 15; TEMP 36.2; O2SAT 98
== END 2024-07-07 00:20 | disposition home or self-care (01) ==
PROVIDERS: Emergency Provider Surgery; PCP Family Medicine; Visit Provider Surgery
DX: G43.909 Migraine, unspecified, not intractable, without status migrainosus (principal); Z79.899 Other long term (current) drug therapy; Z98.51 Tubal ligation status
CPT/HCPCS: 81001; 87086; 87088; 96361; 96374; 96375; 99284; A4216

== ENCOUNTER 2024-09-23 09:18 | Emergency (ER) | payer BC, SELFPAY ==
[2024-09-23 09:19] VITALS: BP 143/85; PULSE 98; RESP 16; TEMP 36.9; O2SAT 98; BMI 47.6
--- NOTE | 2024-09-23 09:45 | CT_ITS ---
PROCEDURE: SOFT TISSUE NECK WITH CONTRAST 09/23/2024 REASON FOR EXAM: PERITONSILLAR ABSCESS TECHNIQUE: CT of the soft tissues of the neck from the orbits to the upper mediastinum with intravenous contrast. CONTRAST: Present, dose = 75 cc Isovue 370 One or more dose reduction techniques were used (e.g., Automated exposure control, adjustment of the mA and/or kV according to patient size, use of iterative reconstruction technique). RADIATION DOSE SUMMARY: DLP: 526.68 mGycm COMPARISON: None FINDINGS: Airway: Intact Salivary glands: Unremarkable Lymph nodes: There is pathologic adenopathy by size criteria with the largest right submandibular node measuring 1 point 1 x 1.8 cm, image 47/108, right carotid space measuring 1.6 by 2.3 cm, image 50, right carotid space measuring 1.9 by 1.8 cm, image 54 left carotid space measuring 1.3 x 1.6 cm, image 56 Thyroid: There is a 0.7 cm low-density lesion in the right thyroid lobe, image 22/108. Vasculature: Unremarkable Orbits: Unremarkable Paranasal sinuses and mastoids: Unremarkable Lung apices: Unremarkable Upper mediastinum: Unremarkable Bones: Unremarkable Other: There is bilateral posterior oropharyngeal tonsillar hypertrophy with diffuse heterogeneous appearance with microabscesses, with the largest on the left measuring 0.6 cm, image 62/108, with no drainable collection. CT/Soft Tissue Neck WITH Contrast IMPRESSION: There is pathologic adenopathy by size criteria with the largest right submandi bular node measuring 1 point 1 x 1.8 cm, image 47/108, right carotid space measuring 1.6 by 2.3 cm, image 50, right carotid sp [place] measuring 1.9 by 1.8 cm, image 54 left carotid space measuring 1.3 x 1.6 cm, image 56 There is a 0.7 cm low-density lesion in the right thyroid lobe, image 22/108. There is bilateral posterior oropharyngeal tonsillar hypertrophy with diffuse h eterogeneous appearance with microabscesses, with the largest on the left measuring 0.6 cm, image 62/108, with no drainable colle ction. Reading [facility]
--- NOTE | 2024-09-23 09:46 | EX.ED.DYSGE1 ---
HPI History of Present Illness Chief Complaint: Dental Informant: patient Narrative Narrative: 33-year-old female presenting to the emergency room with concern for dental abscess. Patient states that she had a root canal that fell out. She is supposed to see dentistry later this week. She states that on Monday she went and saw primary care was put on amoxicillin (it is actually Augmentin). She has been taking that since Monday morning. She notes continued pain at the right upper molar that is decayed. She notes swelling of the surrounding tissue and sores. She states that Monday night she had swelling and pain in her tonsils. She states that she had had a fever up to 103 which is what drove her to her PCPs office. She denies any significant cough. She denies any rashes. She notes it has been painful to swallow. [facility] Medical History Back pain Migraine headache Loss of consciousness Diverticulosis Gastric reflux Non-smoker Sleep apnea Shortness of breath on exertion History of pain when walking Cerebral palsy PDA (patent ductus arteriosus) Home Medications ?Medication ?Instructions ?Recorded ?Last Taken ?Type topiramate 50 mg tablet 50 mg PO BID #60 tabs 05/04/23 Unknown Rx penicillin V potassium 500 mg 500 mg PO 4X/DAY #40 tabs 05/21/23 Unknown Rx tablet ondansetron 4 mg disintegrating 4 mg PO Q6H PRN nausea and 07/03/24 Unknown Rx tablet vomiting #7 tabs chlorhexidine gluconate 0.12 % 15 ml buccal BID #600 mL 09/23/24 Unknown Rx mouthwash (Peridex) clindamycin HCl 300 mg capsule 300 mg PO Q6H #40 CAPSULES 09/23/24 Unknown Rx (Cleocin HCl) oxycodone-acetaminophen 5 mg-325 1 tab PO Q6H PRN PRN Pain 3 days 09/23/24 Unknown Rx mg tablet #12 TABLETS Allergy/AdvReac Type Severity Reaction Status Date / Time doxylamine (From Diclegis) AdvReac Mild SYNCOPE/THROAT Verified 09/23/24 09:19 TIGHTNESS pyridoxine (From Diclegis) AdvReac Mild SYNCOPE/TIGHT Verified 09/23/24 09:19 THROAT Family History no significant family his Surgical History Hx of tubal ligation Social History household members: none Smoking Status: Never smoker substance use type: does not use ROS ROS ED Constitutional Constitutional ED: Reports chills and fever(s); Denies weight loss Eyes Eyes: Denies change in vision or diplopia ENT ENT ED: Reports sore throat and other Details: See history of present illness ; Denies ear pain or rhinorrhea Cardiovascular Cardiovascular: Denies chest pain, orthopnea, palpitations or racing heartbeat Respiratory/Chest Respiratory/Chest: Denies cough, dyspnea or orthopnea Gastrointestinal Gastrointestinal: Denies abdominal pain, diarrhea, nausea or vomiting Genitourinary Genitourinary ED: Denies dysuria, hematuria or urinary frequency Musculoskeletal Musculoskeletal: Denies arthralgias or myalgias Integumentary Denies abscess or rash Neurologic Neurologic: Denies headache(s) or weakness Psychiatric Psychiatric: Denies anxiety, depression, suicidal ideation or suicidal thoughts Endocrine Endocrinology: Denies polydipsia, polyphagia or polyuria Allergic/Immunologic Allergic/Immunologic ED: Denies mouth swelling, tongue swelling or urticaria EXAM Physical Exam Const Vital Signs: 09/23/24 09:19 09/23/24 10:22 09/23/24 11:22 Temperature 98.4 F 98.4 F Temperature Source Oral Oral Pulse Rate 98 89 94 Respiratory Rate 16 16 19 H Blood Pressure 143/85 H 142/96 H Blood Pressure Mean 104 111 Pulse Ox 98 96 100 Oxygen Delivery Method Room Air Room Air Room Air 09/23/24 12:33 Temperature 98.4 F Temperature Source Pulse Rate 94 Respiratory Rate 19 H Blood Pressure 142/96 H Blood Pressure Mean 111 Pulse Ox 100 Oxygen Delivery Method Positive well nourished, well developed and obese General Appearance ED: well developed and NAD Nutritional Appearance: obese HEENT Reports normocephalic, head/scalp atraumatic and moist mucous membranes HEENT Narrative: There is focal gum swelling at the level of the right upper first molar. Tender to palpation. The tooth itself is decayed down to the gumline. I do not appreciate any tongue swelling. Right buccal mucosa demonstrates some circular whitish lesions that coincide with where the buccal mucosa will be touching the tooth. There is bilateral tonsillar erythema and exudates. Right swelling greater than left. Does not touch the uvula. Floor the mouth is soft. There is no trismus. Eyes PERRL and EOMs intact bilaterally Neck supple and no JVD Neck Narrative: Few scattered anterior lymph nodes noted Resp normal respiratory effort and clear to auscultation bilaterally Cardio regular rate, regular rhythm and no murmurs GI normal to inspection, nondistended, normoactive bowel sounds and non-tender Palpation: soft Back/Spine no CVA tenderness and normal ROM Extremity normal to inspection General Extremety ED: Negative for edema General Extremity: Negative for edema Neuro oriented x3 and CN's II-XII intact bilaterally Sensorium / Orientation: alert Motor Exam: strength 5/5 throughout Psych mental status grossly normal Mood & Affect: Negative for depressed or tearful Skin no rashes or lesions noted and no wounds MDM MDM MDM Narrative Medical decision making narrative: Differential diagnosis includes but not limited to malignancy dental abscess osteomyelitis tonsillitis peritonsillar abscess retropharyngeal abscess mononucleosis Basic blood work shows a negative monoscreen white count 9.3 neutrophils 82.4 hemoglobin 15 platelet count of 181. Glucose 134. CT of the neck was obtained. This was read radiology reviewed by myself. Patient was advised on her findings. I do not see a drainable abscess. We are performing a throat culture. I talked with her about starting her on some chlorhexidine rinses as well as possibly changing to clindamycin or adding it in. She thinks it is reasonable to continue the Augmentin added in which I would think is fine. I will also write for pain medicine. Would recommend follow-up with her dentist and she has this changed to tomorrow morning. She is not improving from a throat standpoint when I recommend ENT follow-up. She should also talk to her doctor regarding her thyroid findings. History & Record Review Discussion w/independent historian: Patient Additional record(s) reviewed:: Prior ED visit and Prior labs Lab Data Attestation: I reviewed the patient's lab results. Labs: Laboratory Results - last 24 hr 09/23/24 10:05 WBC 9.3 RBC 5.53 H Hgb 15.0 Hct 44.6 MCV 80.7 L MCH 27.1 MCHC 33.6 RDW Std Deviation 42.5 RDW Coeff of Pal[place] 14.6 Plt Count 181 MPV 11.7 Immature Gran % (Auto) 0.500 Neut % (Auto) 82.4 H Lymph % (Auto) 9.2 L [place] % (Auto) 6.7 Eos % (Auto) 0.6 Baso % (Auto) 0.6 Absolute Neuts (auto) 7.7 Absolute Lymphs (auto) 0.86 Nucleated RBC % 0 Sodium 138 Potassium 4.1 Chloride 104 Carbon Dioxide 19.9 L Anion Gap 14 BUN 7 Creatinine 0.73 Estim Creat Clear Calc 131.15 Est GFR (MDRD) Non-Af 113 BUN/Creatinine Ratio 8.9 L Glucose 134 H Calcium 9.7 Monoscreen Negative Radiography Diagnostic Testing: Clinical Impression(s) from Imaging Studies Soft Tissue Neck CT 09/23/24 09:45 IMPRESSION: There is pathologic adenopathy by size criteria with the largest right submandibular node measuring 1 point 1 x 1.8 cm, image 47/108, right carotid space measuring 1.6 by 2.3 cm, image 50, right carotid space measuring 1.9 by 1.8 cm, image 54 left carotid space measuring 1.3 x 1.6 cm, image 56 There is a 0.7 cm low-density lesion in the right thyroid lobe, image 22/108. There is bilateral posterior oropharyngeal tonsillar hypertrophy with diffuse heterogeneous appearance with microabscesses, with the largest on the left measuring 0.6 cm, image 62/108, with no drainable collection. Reading Location: [facility] Discharge Plan Triage Chief Complaint: Dental ED Provider: Greg Gonzales Dx/Rx/DC Orders Clinical Impression: Dental infection, Exudative tonsillitis, Cervical adenopathy, Thyroid nodule Prescriptions: New chlorhexidine gluconate [Peridex] 0.12 % mouthwash 15 ml buccal BID Qty: 600 0RF oxycodone-acetaminophen 5-325 mg tablet 1 tab PO Q6H PRN PRN (Reason: Pain) 3 Days Qty: 12 0RF clindamycin HCl [Cleocin HCl] 300 mg capsule 300 mg PO Q6H Qty: 40 0RF No Action topiramate 50 mg tablet 50 mg PO BID Qty: 60 11RF penicillin V potassium 500 mg tablet 500 mg PO 4X/DAY Qty: 40 0RF ondansetron 4 mg tablet,disintegrating 4 mg PO Q6H PRN (Reason: nausea and vomiting) Qty: 7 0RF Stand Alone Forms: ED Work / School Excuse Primary Care Provider: Sharon Bryson Referrals: Sharon Bryson MD [Primary Care Provider] - 1 Week Devon Licea MD [Med Staff - Active Staff] - 3-5 Days if not improving Activity Restrictions/Additional Instructions: Please see your dentist as scheduled tomorrow Print Language: Bulgarian Disposition Disposition: Home, Self Care Discharge Date/Time: 09/23/24 12:58
[2024-09-23 10:21] LABS: Absolute Lymphocyte Count 0.86 X10^3/uL (0.83-4.51); Absolute Neutrophil Count 7.7 X10^3/uL (2.0-7.7); Basophil# 0.06 X10^3/uL; Basophil% 0.6 % (0-1); Eosinophil# 0.06 X10^3/uL; Eosinophils% 0.6 % (0-5); Hematocrit 44.6 % (37-47); Lymphocyte # 0.86 X10^3/ul (0.83-4.51); Lymphocyte % 9.2 % (19-41); Mean Corp Hgb Conc 33.6 g/dL (32-36); Mean Corpuscular Hgb 27.1 pg (27.0-32.0); Mean Corpuscular Volume 80.7 fL (81-99); Mean Platelet Vol. 11.7 fl (6.2-12.0); Monocyte# 0.62 X10^3/uL; Monocyte% 6.7 % (0-10); NRBC Flagged by Analyzer 0 % (0-5); Neutrophil # 7.65 X10^3/uL (2.7-7.7); Neutrophil % 82.4 % (47-70); Platelet Count 181 K/mm3 (150-450); RBC Distribution Width CV 14.6 % (11.6-14.6); RBC Distribution Width SD 42.5 fl (35.1-43.9); Red Blood Count 5.53 M/mm3 (4.2-5.4); White Blood Count 9.3 K/mm3 (4.4-11.0)
[2024-09-23 10:22] VITALS: BP 142/96; PULSE 89; RESP 16; TEMP 36.9; O2SAT 96
[2024-09-23] MEDS: 0.9% Normal Saline (1000mL) 1,000 ML 999 ML IV (10:29)
[2024-09-23 10:51] LABS: Anion Gap 14 (5-15); BUN 7 mg/dL (4-19); BUN/Creat Ratio 8.9 RATIO (10-20); Calcium,Total 9.7 mg/dL (7.6-11.0); Carbon Dioxide 19.9 mmol/L (21.0-32.0); Chloride 104 mmol/L (98-108); Creatinine, Serum 0.73 mg/dL (0.70-1.20); EST Glomerular Filtration Rate 113 (>60); Estimated Creatinine Clearance 131.15 ml/min (50-250); Glucose 134 mg/dL (70-99); Potassium 4.1 mmol/L (3.3-5.1); Sodium Level 138 mmol/L (133-145)
[2024-09-23 11:17] LABS: Internal QC Validated? YES +Cl - CLEAR BKGD; Monotest Negative (Negative); Record Kit Lot#, Mono 13241430
[2024-09-23 11:22] VITALS: PULSE 94; RESP 19; O2SAT 100
[2024-09-23 12:33] VITALS: BP 142/96; PULSE 94; RESP 19; TEMP 36.9; O2SAT 100
== END 2024-09-23 12:58 | disposition home or self-care (01) ==
PROVIDERS: Emergency Provider Emergency Medicine; PCP Family Medicine; Visit Provider Emergency Medicine
DX: K04.7 Periapical abscess without sinus (principal); E04.1 Nontoxic single thyroid nodule; R59.9 Enlarged lymph nodes, unspecified; J03.90 Acute tonsillitis, unspecified
CPT/HCPCS: 70491; 80048; 85025; 86308; 87070; 87651; 96360; 96361; 99283; Q9967; A4216